=== PATIENT | male | born 1960 | race African-American/Black ===

== ENCOUNTER 2018-05-13 10:10 | Emergency (ER) | payer SELFPAY ==
[2018-05-13 11:41] LABS: #Basophils 0.1 thou/uL (0.0-0.2); #Eosinphils 0.1 thou/uL (0.0-0.7); #Lymphocytes 1.8 thou/uL (1.20-3.40); #Monocytes 0.5 thou/uL (0.11-0.59); %Eosinophils 0.9 % (0.0-10.0); %Lymphocytes 27.6 % (21.0-51.0); %Monocytes 8.1 % (0.0-10.0); %Neutrophils 61.4 % (42.0-75.0); Hemoglobin 14.6 g/dL (14.0-18.0); Mean Corpuscular HGB CONC 32.5 g/dL (32.0-36.0); Mean Corpuscular Hemoglobin 29.1 pg (27.0-31.0); Mean Corpuscular Volume 89.4 fL (78.0-98.0); Mean Platelet Volume 8.1 fL (7.4-10.4); Platelet Count 249 thou/uL (130-400); RBC Distribution Width 13.5 % (11.5-14.5); Red Blood Cell (RBC) Count 5.03 mill/uL (4.70-6.10); White Blood Cell (WBC) Count 6.6 thou/uL (4.8-10.8)
[2018-05-13 12:04] LABS: ALT (SGPT) 46 U/L (8-55); AST (SGOT) 27 U/L (5-34); Albumin 4.1 g/dL (3.5-5.0); Alkaline Phosphatase 68 U/L (40-150); Anion Gap 13 mmol/L (10-20); BUN (Urea Nitrogen) 20 mg/dL (8.4-25.7); Bilirubin, Total 0.5 mg/dL (0.2-1.2); Calc. Creatinine Clearance 0 mL/min (70-130); Calcium 9.5 mg/dL (7.8-10.44); Carbon Dioxide 23 mmol/L (22-29); Chloride 107 mmol/L (98-107); Estimated GFR-MDRD 87; Globulin 3.4 g/dL (2.4-3.5); Glucose 111 mg/dL (70-105); Potassium 3.6 mmol/L (3.5-5.1); Protein, Total 7.5 g/dL (6.0-8.3); Sodium 139 mmol/L (136-145)
--- NOTE | 2018-05-13 12:12 | RAD ---
1 VIEW CHEST: Date: 05/13/18 COMPARISON: 04/03/18. HISTORY: Swollen ankle x1 week. FINDINGS: Normal cardiac silhouette. Pulmonary vessels and hilum are normal. Costophrenic angles are clear. No mass. No consolidation. No pneumothorax or osseous abnormalities. IMPRESSION: No acute cardiopulmonary process. POS: [facility]
== END 2018-05-13 12:34 | disposition home or self-care (01) ==
LOC: ERS 10:10
DX: R60.0 Localized edema (principal); E11.9 Type 2 diabetes mellitus without complications; I10 Essential (primary) hypertension; F32.9 Major depressive disorder, single episode, unspecified; Z79.899 Other long term (current) drug therapy
CPT/HCPCS: 36415; 71045; 80053; 83880; 85025; 93005

== ENCOUNTER 2018-07-16 09:40 | Emergency (ER) | payer SELFPAY ==
[2018-07-16 10:28] LABS: #Basophils 0.1 thou/uL (0.0-0.2); #Eosinphils 0.1 thou/uL (0.0-0.7); #Lymphocytes 1.5 thou/uL (1.20-3.40); #Monocytes 0.4 thou/uL (0.11-0.59); %Basophils 1.3 % (0.0-1.0); %Eosinophils 1.6 % (0.0-10.0); %Lymphocytes 24.4 % (21.0-51.0); %Monocytes 7.1 % (0.0-10.0); %Neutrophils 65.5 % (42.0-75.0); Hemoglobin 14.3 g/dL (14.0-18.0); Mean Corpuscular HGB CONC 32.5 g/dL (32.0-36.0); Mean Corpuscular Hemoglobin 28.7 pg (27.0-31.0); Mean Corpuscular Volume 88.3 fL (78.0-98.0); Platelet Count 258 thou/uL (130-400); RBC Distribution Width 13.5 % (11.5-14.5); Red Blood Cell (RBC) Count 4.96 mill/uL (4.70-6.10); White Blood Cell (WBC) Count 6.1 thou/uL (4.8-10.8)
[2018-07-16 10:48] LABS: Anion Gap 8 mmol/L (10-20); BUN (Urea Nitrogen) 15 mg/dL (8.4-25.7); Calc. Creatinine Clearance 0 mL/min (70-130); Calcium 9.4 mg/dL (7.8-10.44); Carbon Dioxide 31 mmol/L (22-29); Chloride 104 mmol/L (98-107); Estimated GFR-MDRD 83; Glucose 207 mg/dL (70-105); Potassium 3.3 mmol/L (3.5-5.1); Sodium 140 mmol/L (136-145)
--- NOTE | 2018-07-16 11:18 | CT ---
CT OF THE SOFT TISSUES OF THE NECK WITH IV CONTRAST: Date: 07/16/18 INDICATION: Throat pain with reported throat closing over the last week with difficulty breathing. FINDINGS: There is prominence of the palatine and lingual tonsils. There is also prominence of the posterior so ft palate and uvula causing some mild narrowing of the upper oropharynx. A small amount of fluid and gas is collected near the base of the tongue. There is a hyperenhancing lobular submucosal mass seen posterior to the arytenoid cartilage, in the m idline near the level of the anterior cricopharyngeus, on image 51 of series 2 and image 46 of the co [place] series. This does not definitely communicate with the adjacent left common carotid artery. No lymphadenopathy is grossly evident. There are some shotty appearing nodes seen within station 1 an d station 2 of the upper neck. The thyroid, submandibular, and parotid glands are normal appearing. There is mild mucosal thickening involving the right maxillary sinus. Visualized intracranial contents appear within normal limits. M astoid air cells are clear. There is cerumen buildup within the left external auditory canal. There i s mild degenerative change of the cervical spine. No acute osseous abnormality is evident. IMPRESSION: 1. Prominence of the soft tissues of the posterior nasopharynx and upper oropharynx, including the p alatine and lingual tonsils, which can be seen with an oral pharyngitis. Infiltrative malignancy is n ot excluded. Recommend direct visualization and ENT follow-up. 2. Hyperenhancing mass seen within the midline posterior submucosal tissues of the hypopharynx just posterior to the arytenoid cartilage measuring 1.1 x 1.5 cm. Differential considerations include a sm all varix, poorly defined arterial aneurysm, or a hyperenhancing soft tissue mass such as paraganglio ma. Recommend ENT consultation. Prior to the ENT consultation, recommend further evaluation with a CT A of the neck to possibly exclude the presence of an aneurysm. 3. Mild paranasal sinus disease. Findings called to Dr. Mcgarry at 1059 hours on 07/16/18. CODE CR. POS: [facility]
[2018-07-16] MEDS ORDERED: ISOVUE-370 76%-LOCM 1 ML ONE (13:58)
== END 2018-07-16 11:11 | disposition home or self-care (01) ==
LOC: ERS 09:40
DX: J02.9 Acute pharyngitis, unspecified (principal); E11.65 Type 2 diabetes mellitus with hyperglycemia; J39.2 Other diseases of pharynx; I10 Essential (primary) hypertension; F32.9 Major depressive disorder, single episode, unspecified
CPT/HCPCS: 70491; 80048; 85025

== ENCOUNTER 2018-09-13 13:30 | Emergency (ER) | payer SELFPAY ==
[2018-09-13 14:01] LABS: #Eosinphils 0.1 thou/uL (0.0-0.7); #Lymphocytes 1.3 thou/uL (1.20-3.40); #Monocytes 0.5 thou/uL (0.11-0.59); #Neutrophils 7.2 thou/uL (1.40-6.50); %Basophils 0.5 % (0.0-1.0); %Lymphocytes 13.9 % (21.0-51.0); %Monocytes 5.5 % (0.0-10.0); %Neutrophils 79.1 % (42.0-75.0); Hemoglobin 14.8 g/dL (14.0-18.0); Mean Corpuscular HGB CONC 33.8 g/dL (32.0-36.0); Mean Corpuscular Hemoglobin 29.3 pg (27.0-31.0); Mean Corpuscular Volume 86.6 fL (78.0-98.0); Mean Platelet Volume 9.8 fL (7.4-10.4); Platelet Count 218 thou/uL (130-400); RBC Distribution Width 13.5 % (11.5-14.5); Red Blood Cell (RBC) Count 5.04 mill/uL (4.70-6.10); White Blood Cell (WBC) Count 9.1 thou/uL (4.8-10.8)
[2018-09-13 14:22] LABS: ALT (SGPT) 33 U/L (8-55); AST (SGOT) 26 U/L (5-34); Albumin 4.1 g/dL (3.5-5.0); Alkaline Phosphatase 99 U/L (40-150); Anion Gap 17 mmol/L (10-20); BUN (Urea Nitrogen) 14 mg/dL (8.4-25.7); Bilirubin, Total 0.6 mg/dL (0.2-1.2); Calc. Creatinine Clearance 0 mL/min (70-130); Calcium 9.1 mg/dL (7.8-10.44); Carbon Dioxide 21 mmol/L (22-29); Chloride 97 mmol/L (98-107); Estimated GFR-MDRD 62; Globulin 3.4 g/dL (2.4-3.5); Potassium 3.6 mmol/L (3.5-5.1); Protein, Total 7.5 g/dL (6.0-8.3); Sodium 131 mmol/L (136-145)
[2018-09-13 14:29] LABS: Glucose 577 mg/dL (70-105)
[2018-09-13] MEDS ORDERED: Insulin Regular 300 UNITS/3 ML VIAL ONE (16:36)
== END 2018-09-13 18:10 | disposition home or self-care (01) ==
LOC: ERS 13:30
DX: E11.65 Type 2 diabetes mellitus with hyperglycemia (principal); I10 Essential (primary) hypertension; F32.9 Major depressive disorder, single episode, unspecified; Z79.84 Long term (current) use of oral hypoglycemic drugs
CPT/HCPCS: 36416; 80053; 85025; 94760; 96360; 96361; J1815

== ENCOUNTER 2018-09-15 16:40 | Emergency (ER) | payer SELFPAY ==
--- NOTE | 2018-09-15 17:12 | RAD ---
RADIOGRAPH CHEST 1 VIEW: HISTORY: 58-year-old male with chest pain. FINDINGS: There are no air space densities, pulmonary edema, pneumothorax, or cardiomegaly. The lateral costop hrenic angles are sharp. IMPRESSION: No acute cardiopulmonary findings. yoni [] POS: [facility]
[2018-09-15 17:22] LABS: #Basophils 0.1 thou/uL (0.0-0.2); #Eosinphils 0.1 thou/uL (0.0-0.7); #Monocytes 0.4 thou/uL (0.11-0.59); #Neutrophils 3.4 thou/uL (1.40-6.50); %Basophils 1.3 % (0.0-1.0); %Eosinophils 1.6 % (0.0-10.0); %Lymphocytes 33.4 % (21.0-51.0); %Monocytes 7.2 % (0.0-10.0); %Neutrophils 56.5 % (42.0-75.0); Hemoglobin 14.9 g/dL (14.0-18.0); Mean Corpuscular HGB CONC 33.3 g/dL (32.0-36.0); Mean Corpuscular Hemoglobin 28.4 pg (27.0-31.0); Mean Corpuscular Volume 85.3 fL (78.0-98.0); Mean Platelet Volume 9.9 fL (7.4-10.4); Platelet Count 230 thou/uL (130-400); RBC Distribution Width 13.6 % (11.5-14.5); Red Blood Cell (RBC) Count 5.26 mill/uL (4.70-6.10); White Blood Cell (WBC) Count 5.9 thou/uL (4.8-10.8)
[2018-09-15] MEDS ORDERED: Aspirin 325 MG TAB ONE (17:40)
[2018-09-15 17:53] LABS: ALT (SGPT) 39 U/L (8-55); AST (SGOT) 31 U/L (5-34); Albumin 4.3 g/dL (3.5-5.0); Alkaline Phosphatase 83 U/L (40-150); Anion Gap 15 mmol/L (10-20); BUN (Urea Nitrogen) 10 mg/dL (8.4-25.7); Bilirubin, Total 0.6 mg/dL (0.2-1.2); CK (CPK) 317 U/L (30-200); Calc. Creatinine Clearance 0 mL/min (70-130); Calcium 9.6 mg/dL (7.8-10.44); Carbon Dioxide 24 mmol/L (22-29); Chloride 100 mmol/L (98-107); Estimated GFR-MDRD 81; Globulin 3.6 g/dL (2.4-3.5); Glucose 195 mg/dL (70-105); Lipase 42 U/L (8-78); Potassium 3.1 mmol/L (3.5-5.1); Protein, Total 7.9 g/dL (6.0-8.3); Sodium 136 mmol/L (136-145)
--- NOTE | 2018-09-19 11:14 | EKG ---
Test Reason : Blood Pressure : / mmHG Vent. Rate : 073 BPM Atrial Rate : 073 BPM P-R Int : 176 ms QRS Dur : 154 ms QT Int : 442 ms P-R-T Axes : 050 009 020 degrees QTc Int : 486 ms Normal sinus rhythm Left bundle branch block Abnormal ECG Confirmed by MANUELA WILSON ([id number]), editor trade journal [employer] [place] ([id number]) on 09/19/2018 11:14:19 AM Referred By: Confirmed By:MANUELA WILSON
== END 2018-09-15 18:25 | disposition home or self-care (01) ==
LOC: ERS 16:40
DX: R07.89 Other chest pain (principal); E11.9 Type 2 diabetes mellitus without complications; I10 Essential (primary) hypertension; F32.9 Major depressive disorder, single episode, unspecified; Z79.84 Long term (current) use of oral hypoglycemic drugs
CPT/HCPCS: 71045; 80053; 82550; 83690; 84484; 85025; 93005

== ENCOUNTER 2019-10-11 09:52 | Emergency (ER) | payer SELFPAY ==
[2019-10-11] MEDS ORDERED: Ketorolac Tromethamine 60 MG/2 ML VIAL ONE (10:39)
[2019-10-11 10:52] LABS: Bilirubin Negative (Negative); Blood, Urine Negative (Negative); Clarity Clear (Clear); Glucose, Urine (Dipstick) Normal (Negative); Leukocyte Negative Leu/uL (Negative); Nitrite Negative (Negative); Protein, Urine (Dipstick) 10 mg/dL (Neg-Trace); Urobilinogen Normal mg/dL (Less than 2)
== END 2019-10-11 11:10 | disposition home or self-care (01) ==
LOC: ERS 09:52
DX: M54.5 Low back pain (principal); E11.9 Type 2 diabetes mellitus without complications; I10 Essential (primary) hypertension; F32.9 Major depressive disorder, single episode, unspecified; Z79.84 Long term (current) use of oral hypoglycemic drugs
CPT/HCPCS: 81003; 96372; 99283; J1885

== ENCOUNTER 2020-01-17 11:06 | Emergency (ER) | payer SELFPAY ==
--- NOTE | 2020-01-17 12:50 | RAD ---
PORTABLE CHEST: Date: 01/17/2020 HISTORY: Shortness of breath, chest pain. COMPARISON: 09/15/2018. FINDINGS: Heart size upper normal and stable. Lung shi appear well aerated and clear. No infiltrate or vascu lar congestion. No evidence of effusion. IMPRESSION: No acute lung process. POS: [facility]
[2020-01-17 14:11] LABS: ALT (SGPT) 17 U/L (8-55); AST (SGOT) 14 U/L (5-34); Albumin 4.2 g/dL (3.5-5.0); Alkaline Phosphatase 77 U/L (40-110); Anion Gap 14 mmol/L (10-20); BUN (Urea Nitrogen) 13 mg/dL (8.4-25.7); Bilirubin, Total 0.4 mg/dL (0.2-1.2); Calc. Creatinine Clearance 0 mL/min (70-130); Calcium 9.2 mg/dL (7.8-10.44); Carbon Dioxide 24 mmol/L (22-29); Chloride 103 mmol/L (98-107); Estimated GFR-MDRD 81; Globulin 3.4 g/dL (2.4-3.5); Glucose 102 mg/dL (70-105); Potassium 3.2 mmol/L (3.5-5.1); Protein, Total 7.6 g/dL (6.0-8.3); Sodium 138 mmol/L (136-145)
[2020-01-17 14:33] LABS: #Basophils 0.1 thou/uL (0.0-0.2); #Eosinphils 0.1 thou/uL (0.0-0.7); #Lymphocytes 1.6 thou/uL (1.20-3.40); #Monocytes 0.7 thou/uL (0.11-0.59); #Neutrophils 3.3 thou/uL (1.40-6.50); %Basophils 1.9 % (0.0-1.0); %Eosinophils 1.9 % (0.0-10.0); %Lymphocytes 27.7 % (21.0-51.0); %Monocytes 11.5 % (0.0-10.0); %Neutrophils 57.1 % (42.0-75.0); Hemoglobin 14.2 g/dL (14.0-18.0); Mean Platelet Volume 9.1 fL (7.4-10.4); Platelet Count 280 thou/uL (130-400); RBC Distribution Width 14.2 % (11.5-14.5); Red Blood Cell (RBC) Count 5.27 mill/uL (4.70-6.10); White Blood Cell (WBC) Count 5.7 thou/uL (4.8-10.8)
--- NOTE | 2020-01-19 16:15 | EKG ---
Test Reason : EMERGENCY EXAM Blood Pressure : / mmHG Vent. Rate : 080 BPM Atrial Rate : 080 BPM P-R Int : 160 ms QRS Dur : 146 ms QT Int : 416 ms P-R-T Axes : 045 020 046 degrees QTc Int : 479 ms Normal sinus rhythm Left bundle branch block Abnormal ECG Confirmed by CLEM CSATRO, DESTINY ([id number]), brands editor REINALDO REN ([id number]) on 01/19/2020 4:15:04 PM Referred By: Confirmed By:DESTINY NJ MD
== END 2020-01-17 14:49 | disposition home or self-care (01) ==
LOC: ERS 11:06
DX: R60.0 Localized edema (principal); E11.9 Type 2 diabetes mellitus without complications; I10 Essential (primary) hypertension; F32.9 Major depressive disorder, single episode, unspecified
CPT/HCPCS: 36415; 71045; 80053; 83880; 84484; 85025; 93005; 94760

== ENCOUNTER 2020-03-08 16:33 | Emergency (ER) | payer SELFPAY ==
--- NOTE | 2020-03-08 17:15 | RAD ---
PORTABLE CHEST ONE VIEW: 03/08/20 at 5:00 p.m. HISTORY: Chest pain. COMPARISON: 01/07/20. The heart size is normal. The lungs are expanded without focal areas of consolidation, pneumothoraces , or pleural effusions. IMPRESSION: No radiographic evidence of acute cardiopulmonary process. POS: [facility]
[2020-03-08 17:24] LABS: #Basophils 0.1 thou/uL (0.0-0.2); #Eosinphils 0.1 thou/uL (0.0-0.7); #Lymphocytes 1.7 thou/uL (1.20-3.40); #Monocytes 0.4 thou/uL (0.11-0.59); #Neutrophils 3.4 thou/uL (1.40-6.50); %Basophils 1.7 % (0.0-1.0); %Eosinophils 1.1 % (0.0-10.0); %Lymphocytes 29.3 % (21.0-51.0); %Monocytes 7.6 % (0.0-10.0); %Neutrophils 60.3 % (42.0-75.0); Hemoglobin 14.1 g/dL (14.0-18.0); Mean Corpuscular HGB CONC 31.3 g/dL (32.0-36.0); Mean Corpuscular Hemoglobin 26.7 pg (27.0-31.0); Mean Corpuscular Volume 85.3 fL (78.0-98.0); Mean Platelet Volume 8.4 fL (7.4-10.4); Platelet Count 298 thou/uL (130-400); RBC Distribution Width 14.4 % (11.5-14.5); White Blood Cell (WBC) Count 5.7 thou/uL (4.8-10.8)
[2020-03-08 17:55] LABS: ALT (SGPT) 14 U/L (8-55); AST (SGOT) 13 U/L (5-34); Albumin 4.2 g/dL (3.5-5.0); Alkaline Phosphatase 75 U/L (40-110); Anion Gap 11 mmol/L (10-20); BUN (Urea Nitrogen) 11 mg/dL (8.4-25.7); Bilirubin, Total 0.5 mg/dL (0.2-1.2); Calc. Creatinine Clearance 0 mL/min (70-130); Calcium 9.7 mg/dL (7.8-10.44); Carbon Dioxide 25 mmol/L (22-29); Chloride 104 mmol/L (98-107); Estimated GFR-MDRD 86; Globulin 3.5 g/dL (2.4-3.5); Glucose 73 mg/dL (70-105); Lipase 31 U/L (8-78); Potassium 3.3 mmol/L (3.5-5.1); Protein, Total 7.7 g/dL (6.0-8.3); Sodium 137 mmol/L (136-145)
== END 2020-03-08 21:35 | disposition home or self-care (01) ==
LOC: ERS 16:33
DX: R07.89 Other chest pain (principal); E11.9 Type 2 diabetes mellitus without complications; I10 Essential (primary) hypertension; F32.9 Major depressive disorder, single episode, unspecified
CPT/HCPCS: 36415; 71045; 80053; 83690; 84484; 85025; 93005; 94760

== ENCOUNTER 2020-06-06 07:47 | Inpatient (IN) | payer OTHER, SELFPAY ==
[2020-06-06] MEDS ORDERED: Vancomycin 1 GM/200 ML BAG ONE (08:16)
[2020-06-06] MEDS ORDERED: Cefepime 1 GM VIAL ONE (08:16)
[2020-06-06] MEDS ORDERED: Cefepime 2 GM VIAL ONE (08:20)
[2020-06-06] MEDS ORDERED: Ibuprofen 800 MG TAB ONE (08:25)
[2020-06-06] MEDS ORDERED: Acetaminophen 500 MG TAB ONE (08:25)
[2020-06-06 08:31] LABS: #Basophils 0.1 thou/uL (0.0-0.2); #Eosinphils 0.1 thou/uL (0.0-0.7); #Lymphocytes 0.5 thou/uL (1.20-3.40); #Monocytes 0.5 thou/uL (0.11-0.59); #Neutrophils 12.6 thou/uL (1.40-6.50); %Basophils 0.9 % (0.0-1.0); %Eosinophils 0.4 % (0.0-10.0); %Lymphocytes 3.9 % (21.0-51.0); %Monocytes 3.7 % (0.0-10.0); %Neutrophils 91.2 % (42.0-75.0); Hemoglobin 13.2 g/dL (14.0-18.0); Mean Corpuscular HGB CONC 33.2 g/dL (32.0-36.0); Mean Corpuscular Hemoglobin 28.9 pg (27.0-31.0); Mean Corpuscular Volume 86.9 fL (78.0-98.0); Mean Platelet Volume 8.4 fL (7.4-10.4); Platelet Count 249 thou/uL (130-400); RBC Distribution Width 14.3 % (11.5-14.5); Red Blood Cell (RBC) Count 4.57 mill/uL (4.70-6.10); White Blood Cell (WBC) Count 13.8 thou/uL (4.8-10.8)
--- NOTE | 2020-06-06 08:41 | RAD ---
EXAM: CHEST ONE VIEW HISTORY: Cough. COMPARISON: 03/08/2020 FINDINGS: Cardiac silhouette is magnified by projection. Pulmonary vasculature is within normal limits. Linear densities are again seen at the left lung base and more also seen on prior study likely related to mild scarring. Lungs are otherwise clear. No other interval change. IMPRESSION: No acute cardiopulmonary process.
[2020-06-06 08:55] LABS: ALT (SGPT) 16 U/L (8-55); AST (SGOT) 14 U/L (5-34); Albumin 3.7 g/dL (3.5-5.0); Alkaline Phosphatase 74 U/L (40-110); Anion Gap 16 mmol/L (10-20); BUN (Urea Nitrogen) 14 mg/dL (8.4-25.7); Bilirubin, Total 0.6 mg/dL (0.2-1.2); Calc. Creatinine Clearance 0 mL/min (70-130); Calcium 8.8 mg/dL (7.8-10.44); Carbon Dioxide 20 mmol/L (22-29); Chloride 104 mmol/L (98-107); Estimated GFR-MDRD 80; Globulin 3.1 g/dL (2.4-3.5); Glucose 163 mg/dL (70-105); Lipase 23 U/L (8-78); Potassium 3.1 mmol/L (3.5-5.1); Protein, Total 6.8 g/dL (6.0-8.3); Sodium 137 mmol/L (136-145)
[2020-06-06 09:58] LABS: Bilirubin Negative (Negative); Blood, Urine Negative (Negative); Clarity Clear (Clear); Glucose, Urine (Dipstick) Normal (Negative); Ketone, Urine Negative (Negative); Leukocyte Negative Leu/uL (Negative); Nitrite Negative (Negative); Protein, Urine (Dipstick) Negative (Neg-Trace); Specific Gravity, Urine 1.018 (1.002-1.036); Urobilinogen Normal mg/dL (Less than 2)
--- NOTE | 2020-06-06 10:08 | CT ---
CT PULMONARY ANGIOGRAM WITH IV CONTRAST AND 3-D POSTPROCESSING: HISTORY:Fever, chills, cough and tachycardia FINDINGS: There is inadequate contrast opacification of the pulmonary arterial vasculature making this an nondi agnostic exam for evaluation of pulmonary embolism. The thoracic aorta is well opacified without aneurysm or dissection. No pleural or pericardial effusions are seen. No pneumothoraces, focal areas of consolidation or noncalcified lung nodules are noted. There is a ca lcified granuloma in the left lung base. There are dependent changes in the posterior lung bases, right greater than left. There are degenerative changes in the spine. IMPRESSION: 1. Exam is nondiagnostic for evaluation of pulmonary embolism. 2. No evidence of thoracic aortic aneurysm or dissection.
--- NOTE | 2020-06-06 10:52 | PDOC.HHP ---
Hospitalist HPI - History of Present Illness Shaking History of Present Illness: PCP: [facility] The patient is a 59-year-old male with a past medical history significant for diabetes type 2 (on insulin), hypertension and depression that presents to the ER for the above complaint. The patient reports going to sleep in his usual health last night, then when he awoke he was shaking. He says that he was "shaking all over". He says that he could not stop shaking. He reports associated chills and nausea with a slight nonproductive cough. He was unable to check his temperature. Denies LOC, biting of tongue or loss of bowel/bladder control. He denies any chest pain, heart palpitations, lightheadedness. Denies any wheezing or dyspnea on exertion. Denies any abdominal pain, nausea, vomiting, diarrhea. Denies any urinary symptoms. He denies any loss of smell or known COVID contacts. He has no other complaints at this time. ED Course: VITAL SIGNS FriJun 06, 2020 07:47 MEDHAT Ma Dannette BP: 148/78, Pulse: 122, Resp: 20, Temp: 102.6 (Oral), Pain: 5, O2 sat: 96 on (Room Air), Time: 06/06/2020 07:47. VITAL SIGNS FriJun 06, 2020 08:30 MEDHAT Kathleen Cullen BP: 127/72, Pulse: 113, Resp: 22, Pain: 5, O2 sat: 95 on (Room Air), Time: 06/06/2020 08:30. VITAL SIGNS FriJun 06, 2020 09:14 MEDHAT Roach Jessica BP: 127/69, MAP: 88, Pulse: 102, Resp: 22 (Non-Labored), Temp: 100.9 (Oral), Pain: 5, O2 sat: 95 on (Room Air), Time: 06/06/2020 09:14. Medication administration: *sodium chloride 0.9 % intravenous 30 mL/kg IV Fluid Infusion Given 09:21 06/06/2020 vancomycin in dextrose 5 % one g IV Piggy Back Given 09:13 06/06/2020 ibuprofen 800 mg Oral Given 08:29 06/06/2020 acetaminophen oral 1 g Oral Given 08:29 06/06/2020 cefepime injection 2 g IV Piggy Back Given 08:28 06/06/2020 sodium chloride 0.9 % intravenous 1 L IV Fluid Infusion Given 08:20 06/06/2020 Hospitalist ROS - Review of Systems All other systems reviewed; all pertinent +/- noted in HPI/Subj - Medication Medications: metFORMIN FriJun 06, 2020 08:13 MEDHAT Kathleen Cullen tablet : Strength - 500 mg : ORAL Patient Dose: 1 tablet p.o. twice daily. lisinopril FriJun 06, 2020 08:13 MEDHAT Kathleen Cullen tablet : Strength - 2.5 mg : ORAL Patient Dose: Unknown. Amlodipine unknown dose. Benadryl 25 mg p.o. nightly Insulin 70:30 35 units every morning. Allergies: NKDA Hospitalist History - Past Medical History Source: patient, RN notes reviewed Cardiac: reports: HTN Psych: reports: Depression Endocrine: reports: Diabetes (Type II) - Past Surgical History Past Surgical History: reports: Cataract Removal (Left eye) - Family History Family History: reports: no pertinent history Other Family History: Noncontributory to this case - Social History Smoking Status: Former smoker Tobacco Type: cigars (Quit greater than 10 years ago) Drugs: reports: marijuana (Quit greater than 10 years ago) Living Situation: Alone Occupation: Unemployed Activity level: independent ambulation - Exam General Appearance: NAD, awake alert. negative: ill appearing Eye: anicteric sclera ENT: normocephalic atraumatic Neck: supple, symmetric, no JVD Heart: RRR, no murmur, no gallops, no rubs, normal peripheral pulses Respiratory: CTAB, no wheezes, no rales, no ronchi, normal chest expansion, no tachypnea Gastrointestinal: soft, non-tender, normal bowel sounds, no bruit, no guarding, no rigidity Extremities: no cyanosis, no edema Skin: no rashes Neurological: no focal deficits Musculoskeletal: normal tone, normal strength Psychiatric: normal affect, A&O x 3 Hospitalist Results - Labs Result Diagrams: 06/06/20 08:18 06/06/20 08:18 Lab results: WBC 13.8 thou/uL (4.8-10.8) H 06/06/20 08:18 Hgb 13.2 g/dL (14.0-18.0) L 06/06/20 08:18 Hct 39.8 % (42.0-52.0) L 06/06/20 08:18 MCV 86.9 fL (78.0-98.0) 06/06/20 08:18 Plt Count 249 thou/uL (130-400) 06/06/20 08:18 Neutrophils % 91.2 % (42.0-75.0) H 06/06/20 08:18 Sodium 137 mmol/L (136-145) 06/06/20 08:18 Potassium 3.1 mmol/L (3.5-5.1) L 06/06/20 08:18 Chloride 104 mmol/L (98-107) 06/06/20 08:18 Carbon Dioxide 20 mmol/L (22-29) L 06/06/20 08:18 BUN 14 mg/dL (8.4-25.7) 06/06/20 08:18 Creatinine 1.14 mg/dL (0.7-1.3) 06/06/20 08:18 Glucose 163 mg/dL (70-105) H 06/06/20 08:18 Lactic Acid 3.1 mmol/L (0.5-2.2) H 06/06/20 08:18 Calcium 8.8 mg/dL (7.8-10.44) 06/06/20 08:18 Total Bilirubin 0.6 mg/dL (0.2-1.2) 06/06/20 08:18 AST 14 U/L (5-34) 06/06/20 08:18 ALT 16 U/L (8-55) 06/06/20 08:18 Alkaline Phosphatase 74 U/L (40-110) 06/06/20 08:18 Troponin I Less than 0.010 ng/mL (< 0.028) 06/06/20 08:18 Serum Total Protein 6.8 g/dL (6.0-8.3) 06/06/20 08:18 Albumin 3.7 g/dL (3.5-5.0) 06/06/20 08:18 Lipase 23 U/L (8-78) 06/06/20 08:18 Urine Ketones Negative mg/dL (Negative) 06/06/20 09:47 Urine Blood Negative (Negative) 06/06/20 09:47 Urine Nitrite Negative (Negative) 06/06/20 09:47 Ur Leukocyte Esterase Negative Jayro/uL (Negative) 06/06/20 09:47 - EKG Interpretation EKG: Sinus tach left bundle branch block pulse 111 IN 152 no STEMI. - Radiology Interpretation Chest x-ray Status: report reviewed by me Additional Comment: IMPRESSION: No acute cardiopulmonary process CT scan - chest Status: report reviewed by me Additional Comment: 1. Exam is nondiagnostic for evaluation of pulmonary embolism. 2. No evidence of thoracic aortic aneurysm or dissection Hospitalist H&P A/P - Problem (1) Sepsis Code(s): A41.9 - SEPSIS, UNSPECIFIED ORGANISM Status: Acute (2) Hypokalemia Code(s): E87.6 - HYPOKALEMIA Status: Acute (3) DM type 2 (diabetes mellitus, type 2) Status: Chronic (4) Hypertension Code(s): I10 - ESSENTIAL (PRIMARY) HYPERTENSION Status: Chronic (5) Depression Code(s): F32.9 - MAJOR DEPRESSIVE DISORDER, SINGLE EPISODE, UNSPECIFIED Status: Chronic - Plan Plan: 59/M with PMH HTN, DM 2 presents for shaking and chills. Admit to medical floor, inpatient status. Expected length of stay greater than 2 midnights. Presented tachycardic and febrile, NL BP, RR, SPO2. EKG sinus rhythm with LBBB, no ST elevation, troponin negative. CXR no acute process. DD 0.64, CTA chest nondiagnostic PE, no evidence aortic aneurysm or dissection. WBC 13.8, LA 3.1 Strep and flu negative. UA unremarkable. #Sepsis Unknown source. Continue empiric antibiotics, vancomycin and cefepime IVPB Received 30 mls/kg in ED. Maintenance IVF at 130 mL/HR. Blood/urine CX pending. COVID pending Check procalcitonin, TSH Repeat LA pending. #Hypokalemia Mild. K 3.1 We will give 40 mEq IVPB. Check magnesium level. Recheck level in a.m. #DM2 Presented BG 123. Takes metformin daily. Takes 70:30 -35 units every morning. Hold home anti-hyperglycemics. Start mild ISS. AC/HS checks #Hypertension Presented normotensive. Takes unknown dose of lisinopril and amlodipine at home. Nursing to reconcile home medication dosing. Restart home medications when appropriate. #Depression Denies SI/HI. Takes unknown home medication that he gets from [facility]. Nursing to reconcile home medication. We will restart home medication once reconciled by nursing. Lovenox for DVT prophylaxis. Pepcid for GI prophylaxis. Full code. Discussed case with Dr. Casiano.
[2020-06-06] MEDS ORDERED: Ondansetron ODT 4 MG TAB PO PRN (11:13)
[2020-06-06] MEDS ORDERED: Guaifenesin DM 100-10/5 ML UDCUP PO PRN (11:13)
[2020-06-06] MEDS ORDERED: Acetaminophen 325 MG TAB PO PRN (11:13)
[2020-06-06] MEDS ORDERED: Calcium Carbonate 500 MG ChewTAB PO PRN (11:13)
[2020-06-06] MEDS ORDERED: Senokot S 8.6-50 MG TAB PO PRN (11:13)
[2020-06-06] MEDS ORDERED: Ondansetron PF 4 MG/2 ML Vial IVP PRN (11:13)
[2020-06-06] MEDS ORDERED: HumaLOG 300 UNITS/3 ML VIAL SC PRN (11:18)
[2020-06-06] MEDS ORDERED: Dextrose 5% in Water 1,000 ML IV PRN (11:18)
[2020-06-06] MEDS ORDERED: Dextrose 50% Abboject 50 ML SYRINGE SLOW IVP PRN (11:18)
[2020-06-06 11:47] LABS: Lactic Acid 2.6 mmol/L (0.5-2.2)
[2020-06-06] MEDS ORDERED: Magnesium 2 GM/50 ML 2 GM in Premix Bag 1 BAG IVPB SCH (12:45)
[2020-06-06] MEDS ORDERED: Potassium Chloride 40 MEQ in Sodium Chloride 0.9% 250 ML 250 ML IVPB SCH (13:00)
[2020-06-06 13:31] VITALS: BMI 33.5
[2020-06-06] MEDS ORDERED: Iopamidol-370 76% 500 ML 1 ML ONE (13:31)
[2020-06-06] MEDS: Sodium Chloride 0.9% 1,000 ML IV SCH ×2 (13:52→18:20)
[2020-06-06] MEDS ORDERED: FLU VACC QS2020-21(6MOS UP)/PF 60 MCG/0.5 ML SYRINGE IM ONE (15:15)
[2020-06-06 17:57] LABS: SARS-CoV-2 MS2 Positive; SARS-CoV-2 N Gene Negative; SARS-CoV-2 S Gene Negative; SARS-CoV-2 by NAA Not Detected (NotDetected); SARS-CoV-2 orf1ab Negative
[2020-06-06] MEDS: Famotidine 20 MG TAB PO SCH (20:16)
[2020-06-06] MEDS: Cefepime 2 GM in Sodium Chloride 0.9% 100 ML IVPB SCH (20:16)
[2020-06-06] MEDS: diphenhydrAMINE 25 MG CAP PO SCH (20:16)
[2020-06-06] MEDS: Vancomycin HCl 1.25 GM in Sodium Chloride 0.9% 250 ML 250 ML IVPB SCH (21:30)
[2020-06-07] MEDS: Sodium Chloride 0.9% 1,000 ML IV SCH ×3 (03:00→17:30)
[2020-06-07] MEDS ORDERED: Ibuprofen 200 MG TAB PO SCH (05:15)
[2020-06-07 05:33] LABS: #Eosinphils 0.2 thou/uL (0.0-0.7); #Monocytes 0.6 thou/uL (0.11-0.59); #Neutrophils 6.9 thou/uL (1.40-6.50); %Basophils 0.3 % (0.0-1.0); %Eosinophils 2.4 % (0.0-10.0); %Lymphocytes 11.5 % (21.0-51.0); %Monocytes 6.7 % (0.0-10.0); %Neutrophils 79.1 % (42.0-75.0); Hemoglobin 12.2 g/dL (14.0-18.0); Mean Corpuscular HGB CONC 32.9 g/dL (32.0-36.0); Mean Corpuscular Hemoglobin 28.6 pg (27.0-31.0); Mean Corpuscular Volume 86.9 fL (78.0-98.0); Mean Platelet Volume 8.6 fL (7.4-10.4); Platelet Count 205 thou/uL (130-400); RBC Distribution Width 14.2 % (11.5-14.5); Red Blood Cell (RBC) Count 4.26 mill/uL (4.70-6.10); White Blood Cell (WBC) Count 8.8 thou/uL (4.8-10.8)
[2020-06-07 05:49] LABS: Lactic Acid 0.8 mmol/L (0.5-2.2)
[2020-06-07 05:57] LABS: Anion Gap 12 mmol/L (10-20); BUN (Urea Nitrogen) 9 mg/dL (8.4-25.7); Calc. Creatinine Clearance 105 mL/min (70-130); Carbon Dioxide 21 mmol/L (22-29); Chloride 108 mmol/L (98-107); Estimated GFR-MDRD Greater than 90; Glucose 118 mg/dL (70-105); Magnesium 1.7 mg/dL (1.6-2.6); Potassium 3.3 mmol/L (3.5-5.1); Sodium 138 mmol/L (136-145)
[2020-06-07] MEDS: Enoxaparin Sodium 40 MG/0.4 ML SYRINGE SC SCH (08:23)
[2020-06-07] MEDS: Famotidine 20 MG TAB PO SCH ×2 (08:23→21:14)
[2020-06-07] MEDS: Cefepime 2 GM in Sodium Chloride 0.9% 100 ML IVPB SCH ×2 (08:23→21:14)
[2020-06-07] MEDS ORDERED: Vancomycin 1 GM in Premix Bag 1 BAG IVPB SCH (09:00)
[2020-06-07] MEDS: Vancomycin HCl 1.25 GM in Sodium Chloride 0.9% 250 ML 250 ML IVPB SCH ×2 (09:34→23:07)
[2020-06-07] MEDS: HumaLOG 300 UNITS/3 ML VIAL SC PRN ×2 (11:48→16:02)
--- NOTE | 2020-06-07 12:12 | PDOC.HOSPP ---
- Subjective Encounter Date: 06/07/20 Encounter Time: 12:06 Subjective: minimal dry cough, no fever - Objective Vital Signs & Weight: Vital Signs (12 hours) Temp Pulse Resp BP BP Pulse Ox 06/07/20 11:00 98.4 F 84 16 126/78 96 06/07/20 08:00 95 06/07/20 07:54 98.3 F 76 16 129/78 95 06/07/20 05:46 99.2 F 97 18 124/77 92 L 06/07/20 04:55 100.7 F H 97 20 124/77 92 L 06/07/20 00:40 99.6 F 95 18 113/67 90 L Weight Weight 201 lb 15.095 oz I&O: 06/06/20 06/07/20 06/08/20 06:59 06:59 06:59 Intake Total 240 Balance 240 Result Diagrams: 06/07/20 05:21 06/07/20 05:21 Additional Labs: Accuchecks 06/07/20 06/07/20 06/06/20 11:44 04:22 20:25 POC Glucose 192 H 126 H 112 H Hospitalist ROS - Medication Medications: Active Medications Generic Name Dose Route Start Last Admin Trade Name Freq PRN Reason Stop Dose Admin Acetaminophen 650 mg 06/06/20 11:13 06/07/20 03:40 Acetaminophen 325 Mg Tab PO 650 mg Q4H PRN Administration Headache/Fever/Mild Pain (1-3) Diphenhydramine HCl 25 mg 06/06/20 21:00 06/06/20 20:16 Diphenhydramine 25 Mg Cap PO 25 mg HS MATTHIEU Administration Enoxaparin Sodium 40 mg 06/07/20 09:00 06/07/20 08:23 Enoxaparin Sodium 40 Mg/0.4 Ml Syringe SC 40 mg 0900 MATTHIEU Administration Famotidine 20 mg 06/06/20 21:00 06/07/20 08:23 Famotidine 20 Mg Tab PO 20 mg BID MATTHIEU Administration Sodium Chloride 1,000 mls @ 130 mls/hr 06/06/20 11:15 06/07/20 11:47 Normal Saline 0.9% IV 1,000 mls .Q7H42M MATTHIEU Administration Cefepime HCl 2 gm/ Sodium 100 mls @ 200 mls/hr 06/06/20 20:00 06/07/20 08:23 Chloride IVPB 100 mls 0800,2000 MATTHIEU Administration Vancomycin HCl 1.25 gm/ Sodium 250 mls @ 166.667 mls/hr 06/06/20 21:00 06/07/20 09:34 Chloride IVPB 250 mls Q12HR MATTHIEU Administration Insulin Human Lispro 0 units 06/06/20 11:18 06/07/20 11:48 Humalog 300 Units/3 Ml Vial SC 2 unit .MILD SLIDING SCALE PRN Administration Mild Correctional Scale - Exam General Appearance: awake alert ENT: no oropharyngeal lesions, moist mucosa Neck: no JVD Heart: RRR, no murmur Respiratory: CTAB Gastrointestinal: soft, normal bowel sounds Extremities: no edema Hosp A/P (1) Fever Code(s): R50.9 - FEVER, UNSPECIFIED Status: Acute Qualifiers: Encounter type: initial encounter (2) Lactic acidosis Code(s): E87.2 - ACIDOSIS Status: Resolved (3) DM type 2 (diabetes mellitus, type 2) Status: Chronic Qualifiers: Diabetes mellitus residential insulin use: without residential use Diabetes mellitus complication status: without complication Qualified Code(s): E11.9 - Type 2 diabetes mellitus without complications (4) Depression Code(s): F32.9 - MAJOR DEPRESSIVE DISORDER, SINGLE EPISODE, UNSPECIFIED Status: Chronic Qualifiers: Major depression recurrence: unspecified whether recurrent Major depression episode severity: unspecified (5) Hypertension Code(s): I10 - ESSENTIAL (PRIMARY) HYPERTENSION Status: Chronic Qualifiers: Hypertension type: essential hypertension Qualified Code(s): I10 - Essential (primary) hypertension - Plan fever, leukoctosis resolved covid neg-he received with true bennie culturespending cont c urrent care
[2020-06-07 20:42] LABS: Vancomycin, Trough 10.4 ug/mL
[2020-06-07] MEDS: diphenhydrAMINE 25 MG CAP PO SCH (21:14)
[2020-06-07] MEDS: Vancomycin 1.5 GRAM/300 ML BAG 1.5 GM in Premix Bag 1 BAG IVPB SCH (23:00)
[2020-06-08] MEDS: Sodium Chloride 0.9% 1,000 ML IV SCH ×2 (03:00→09:11)
[2020-06-08 06:47] LABS: #Eosinphils 0.3 thou/uL (0.0-0.7); #Lymphocytes 1.2 thou/uL (1.20-3.40); #Monocytes 0.8 thou/uL (0.11-0.59); #Neutrophils 4.7 thou/uL (1.40-6.50); %Basophils 0.7 % (0.0-1.0); %Eosinophils 4.5 % (0.0-10.0); %Lymphocytes 16.6 % (21.0-51.0); %Monocytes 11.4 % (0.0-10.0); %Neutrophils 66.7 % (42.0-75.0); Hemoglobin 12.6 g/dL (14.0-18.0); Mean Corpuscular HGB CONC 31.4 g/dL (32.0-36.0); Mean Corpuscular Volume 89.3 fL (78.0-98.0); Mean Platelet Volume 8.7 fL (7.4-10.4); Platelet Count 227 thou/uL (130-400); RBC Distribution Width 14.3 % (11.5-14.5); Red Blood Cell (RBC) Count 4.49 mill/uL (4.70-6.10); White Blood Cell (WBC) Count 7.1 thou/uL (4.8-10.8)
[2020-06-08 07:12] LABS: Anion Gap 15 mmol/L (10-20); BUN (Urea Nitrogen) 10 mg/dL (8.4-25.7); Calc. Creatinine Clearance 99 mL/min (70-130); Calcium 8.1 mg/dL (7.8-10.44); Carbon Dioxide 19 mmol/L (22-29); Chloride 108 mmol/L (98-107); Estimated GFR-MDRD 88; Glucose 117 mg/dL (70-105); Potassium 3.4 mmol/L (3.5-5.1); Sodium 139 mmol/L (136-145)
[2020-06-08] MEDS: Cefepime 2 GM in Sodium Chloride 0.9% 100 ML IVPB SCH (07:47)
[2020-06-08] MEDS: Enoxaparin Sodium 40 MG/0.4 ML SYRINGE SC SCH (07:47)
[2020-06-08] MEDS: Famotidine 20 MG TAB PO SCH (07:47)
[2020-06-08 08:58] VITALS: BP 117/69; TEMP 98.4
[2020-06-08] MEDS: Vancomycin 1.5 GRAM/300 ML BAG 1.5 GM in Premix Bag 1 BAG IVPB SCH (09:10)
--- NOTE | 2020-06-09 07:42 | DIS ---
DATE OF ADMISSION: 06/06/2020 DATE OF DISCHARGE: 06/08/2020 PRIMARY CARE PROVIDER: [facility]. FINAL DIAGNOSES: Systemic inflammatory response syndrome with mild lactic acidosis, resolved; diabetes mellitus type 2; hypertension; and depression. DISCHARGE MEDICATIONS: Were his home medicines; Risperdal 2 mg at bedtime, metformin 500 mg twice a day, amlodipine 10 mg a day, Celexa 20 mg a day, and lisinopril 10 mg a day. ALLERGIES: NO KNOWN DRUG ALLERGIES. DIET: Diabetic. CODE STATUS: Full. PENDING AT TIME OF DISCHARGE: His blood cultures are no growth to date. HOSPITAL COURSE: The patient was seen in the emergency room with fever, some chills and sweats, history of diabetes, hypertension, and depression. He was seen and evaluated in emergency room, referred to the Hospitalist Service. Chest x-ray showed no acute problem. CT showed no acute injury. He has sinus tachycardia with a left bundle-branch block. White count was modestly elevated at 13.8, hemoglobin 13.2, and platelet count was normal. He had an absolute neutrophilia. Sodium 137, potassium 3.1, chloride 104, CO2 of 20, BUN 14, and creatinine 1.14. Liver function tests normal. He was started on broad-spectrum antibiotics. COVID test was negative. When I first saw him on 06/07/20, he had perhaps a minimal dry cough. No shortness of breath. Chest clear. No nausea, vomiting, or diarrhea. His white count had come down to normal at 8.8. Chemistries were unremarkable. Today, cultures are still negative. White count is normal. Physical examination is unremarkable. He has no signs and symptoms of infection. FOLLOWUP: He is being discharged to follow up with [facility] in 3 to 7 days on his home medications. Job ID: [id number]
--- NOTE | 2020-06-10 03:59 | PQF ---
CLINICAL DOCUMENTATION CLARIFICATION FORM: Dear : Tom Ryan Date / Time: 06/10/20358 Please exercise your independent, professional judgment in responding to the clarification form. Clinical indicators are provided on the bottom of this form for your review Please check appropriate box(es): SIRS due to Non-infectious process: [ ] Hypokalemia [ ] LBBB [ ] Other diagnosis [ ] Unable to determine Physician Signature: Date/Time: For continuity of documentation, please document condition throughout progress notes and discharge summary. Thank You. To be completed by CDI/Coding staff for physician review: Present Clinical Indicators - Signs / Symptoms / Labs Results and Location in Medical Record [X] WBC 13.8, neutrophils 91.2, Potassium 3.1;3.3;3.4 Laboratory 06/06 [X] BP 113/70, Pulse 96, Resp 96, Temp 98.0 Vital signs 06/06 [X] EKG showered sinus rhythm with LBBB, no ST elevation H&p p1 Zachariah NUCLEAR PROCESS ENGINEER-C 06/06 [X] Pt reports going to sleep then he awoke was shaking H&p p1 Zachariah NUCLEAR PROCESS ENGINEER-C 06/06 [X] Presented with tachycardic and febrile H&p p5 Zachariah NUCLE[employer] PROCESS ENGINEER-C 06/06 [X] Mild Hypokalemia H&p p5 Zachariah NUCLEAR PROCESS ENGINEER-C 06/06 [X] SIRS with Lactic acidosis DS p1 06/08 Dr Ryan Present Risk Factors Results and Location in Medical Record [X] HTN H&p p1 Zachariah NUCLEAR PROCESS ENGINEER-C 06/06 [X] DM H&p p1 Zachariah NUCLEAR PROCESS ENGINEER-C 06/06 [X] Former smoker H&p p1 Zachariah NUCLEAR PROCESS ENGINEER-C 06/06 Present Treatments Results and Location in Medical Record [X] Series of blood chemistry Laboratory 06/06 [X] IV Vancomycin 1.25 mg NOV 08 [X] IVF NS 1L NOV 08 [X] Potassium Chloride 40 meq NOV 08 [X] EKG Order Dr Davila CDS/Maintenance Director Signature: Sara Suero Dalemerissaayla Phone #: ext [phone] Date/Time: 06/10/2020 [id number] This is a permanent part of the Medical Record [facility]
== END 2020-06-08 11:13 | disposition home or self-care (01) | DRG 815 ==
LOC: ERS 07:47 → T4-B 10:56
PROVIDERS: ADMIT Internal Medicine; ATTEND Internal Medicine
DX: D72.829 Elevated white blood cell count, unspecified (principal); E87.2 Acidosis; R65.10 Systemic inflammatory response syndrome (SIRS) of non-infectious origin without acute organ dysfunction; Z87.891 Personal history of nicotine dependence; R50.9 Fever, unspecified; Z20.828 Contact with and (suspected) exposure to other viral communicable diseases; E11.9 Type 2 diabetes mellitus without complications; I10 Essential (primary) hypertension; F32.9 Major depressive disorder, single episode, unspecified; I44.7 Left bundle-branch block, unspecified; E87.6 Hypokalemia; Z79.899 Other long term (current) drug therapy; Z79.4 Long term (current) use of insulin; Z98.42 Cataract extraction status, left eye
CPT/HCPCS: 36415; 36416; 71045; 71275; 80048; 80053; 80202; 81003; 83605; 83690; 83735; 84145; 84443; 84484; 85025; 85379; 87040; 87081; 87430; 87635; 87804; 96361; 96365; 96366; 96367; J0692; J1650; J3370; J3475; J3480; J3490; J7050; Q0163; Q9967; U0003

== ENCOUNTER 2020-07-10 18:29 | Emergency (ER) | payer SELFPAY ==
--- NOTE | 2020-07-10 19:32 | RAD ---
CHEST ONE VIEW: History: Chest pain Comparison: 06-06-2020 FINDINGS: Lungs are mildly hypoinflated with enlargement of the cardiac silhouette and crowding of the pulmonar y vasculature. No acute consolidation, pneumothorax or effusion. No acute osseous abnormality. IMPRESSION: No acute intrathoracic abnormality. POS: [facility]
[2020-07-10 19:33] LABS: #Basophils 0.1 thou/uL (0.0-0.2); #Eosinphils 0.2 thou/uL (0.0-0.7); #Lymphocytes 2.4 thou/uL (1.20-3.40); #Monocytes 0.6 thou/uL (0.11-0.59); #Neutrophils 3.3 thou/uL (1.40-6.50); %Basophils 1.9 % (0.0-1.0); %Eosinophils 2.4 % (0.0-10.0); %Lymphocytes 35.9 % (21.0-51.0); %Monocytes 9.4 % (0.0-10.0); %Neutrophils 50.5 % (42.0-75.0); Mean Corpuscular HGB CONC 33.3 g/dL (32.0-36.0); Mean Corpuscular Hemoglobin 28.5 pg (27.0-31.0); Mean Corpuscular Volume 85.7 fL (78.0-98.0); Mean Platelet Volume 8.6 fL (7.4-10.4); Platelet Count 248 thou/uL (130-400); RBC Distribution Width 14.2 % (11.5-14.5); Red Blood Cell (RBC) Count 5.25 mill/uL (4.70-6.10); White Blood Cell (WBC) Count 6.6 thou/uL (4.8-10.8)
[2020-07-10 20:01] LABS: ALT (SGPT) 19 U/L (8-55); AST (SGOT) 17 U/L (5-34); Albumin 4.3 g/dL (3.5-5.0); Alkaline Phosphatase 78 U/L (40-110); Anion Gap 19 mmol/L (10-20); BUN (Urea Nitrogen) 10 mg/dL (8.4-25.7); Bilirubin, Total 0.5 mg/dL (0.2-1.2); CK (CPK) 192 U/L (30-200); Calc. Creatinine Clearance 0 mL/min (70-130); Calcium 9.6 mg/dL (7.8-10.44); Carbon Dioxide 21 mmol/L (22-29); Chloride 104 mmol/L (98-107); Estimated GFR-MDRD Greater than 90; Globulin 3.4 g/dL (2.4-3.5); Glucose 77 mg/dL (70-105); Lipase 26 U/L (8-78); Potassium 3.5 mmol/L (3.5-5.1); Protein, Total 7.7 g/dL (6.0-8.3); Sodium 140 mmol/L (136-145)
== END 2020-07-10 21:45 | disposition home or self-care (01) ==
LOC: ERS 18:29
DX: R07.9 Chest pain, unspecified (principal); E11.9 Type 2 diabetes mellitus without complications; I10 Essential (primary) hypertension; F32.9 Major depressive disorder, single episode, unspecified; Z87.891 Personal history of nicotine dependence
CPT/HCPCS: 36415; 71045; 80053; 82550; 83690; 84484; 85025; 93005

== ENCOUNTER 2020-08-14 10:03 | Emergency (ER) | payer SELFPAY | END 2020-08-14 12:35 | disposition home or self-care (01) | LOC: ERS 10:03 | DX: B37.42 Candidal balanitis (principal); I10 Essential (primary) hypertension; E11.9 Type 2 diabetes mellitus without complications; Z87.891 Personal history of nicotine dependence; Z79.4 Long term (current) use of insulin | CPT/HCPCS: 99283 ==

== ENCOUNTER 2020-08-15 08:04 | Emergency (ER) | payer SELFPAY ==
[2020-08-15] MEDS ORDERED: Famotidine 20 MG TAB ONE (09:28)
[2020-08-15] MEDS ORDERED: Racepinephrine 2.25% 0.5 ML NEB ONE (09:31)
[2020-08-15] MEDS ORDERED: Sodium Chloride For Inhalation 0.9% 3 ML NEB ONE (09:32)
[2020-08-15] MEDS ORDERED: Loratadine 10 MG TAB PO SCH (09:45)
== END 2020-08-15 11:34 | disposition home or self-care (01) ==
LOC: ERS 08:04
DX: R60.0 Localized edema (principal); E11.9 Type 2 diabetes mellitus without complications; I10 Essential (primary) hypertension; Z87.891 Personal history of nicotine dependence; Z79.84 Long term (current) use of oral hypoglycemic drugs
CPT/HCPCS: 94640; 99283

== ENCOUNTER 2020-08-17 12:05 | Emergency (ER) | payer SELFPAY | END 2020-08-17 14:57 | disposition home or self-care (01) | LOC: ERS 12:05 | DX: T49.0X1A Poisoning by local antifungal, anti-infective and anti-inflammatory drugs, accidental (unintentional), initial encounter (principal); E11.9 Type 2 diabetes mellitus without complications; I10 Essential (primary) hypertension; Z87.891 Personal history of nicotine dependence | CPT/HCPCS: 99283 ==

== ENCOUNTER 2020-08-19 18:45 | Emergency (ER) | payer SELFPAY ==
--- NOTE | 2020-08-19 20:03 | RAD ---
CHEST ONE VIEW: History: Dyspnea Comparison: 07-10-2020 FINDINGS: Lungs are clear. No pneumothorax or effusion. Cardiac silhouette and mediastinal contours are within normal limits. Mild bibasilar atelectasis with poor inspiratory effort. IMPRESSION: No acute intrathoracic abnormality. POS: HOME
[2020-08-20 05:34] LABS: SARS-CoV-2 MS2 Positive; SARS-CoV-2 N Gene Negative; SARS-CoV-2 S Gene Negative; SARS-CoV-2 by NAA Not Detected (NotDetected); SARS-CoV-2 orf1ab Negative
== END 2020-08-19 19:40 | disposition home or self-care (01) ==
LOC: ERS 18:45
DX: R06.02 Shortness of breath (principal); Z20.828 Contact with and (suspected) exposure to other viral communicable diseases; E11.9 Type 2 diabetes mellitus without complications; I10 Essential (primary) hypertension; Z87.891 Personal history of nicotine dependence
CPT/HCPCS: 71045; 87635; 93005; U0003

== ENCOUNTER 2021-02-03 09:01 | Emergency (ER) | payer SELFPAY ==
[2021-02-03 10:56] LABS: #Basophils 0.1 thou/uL (0.0-0.2); #Lymphocytes 0.8 thou/uL (1.20-3.40); #Monocytes 0.2 thou/uL (0.11-0.59); #Neutrophils 3.4 thou/uL (1.40-6.50); %Basophils 1.1 % (0.0-1.0); %Lymphocytes 18.2 % (21.0-51.0); %Monocytes 5.2 % (0.0-10.0); %Neutrophils 75.4 % (42.0-75.0); Mean Corpuscular HGB CONC 33.6 g/dL (32.0-36.0); Mean Corpuscular Hemoglobin 29.2 pg (27.0-31.0); Mean Corpuscular Volume 86.9 fL (78.0-98.0); Mean Platelet Volume 8.2 fL (7.4-10.4); Platelet Count 206 thou/uL (130-400); RBC Distribution Width 13.8 % (11.5-14.5); Red Blood Cell (RBC) Count 4.81 mill/uL (4.70-6.10); White Blood Cell (WBC) Count 4.5 thou/uL (4.8-10.8)
[2021-02-03 11:19] LABS: ALT (SGPT) 25 U/L (8-55); AST (SGOT) 26 U/L (5-34); Albumin 3.8 g/dL (3.5-5.0); Alkaline Phosphatase 71 U/L (40-110); Anion Gap 15 mmol/L (10-20); BUN (Urea Nitrogen) 13 mg/dL (8.4-25.7); Bilirubin, Total 0.6 mg/dL (0.2-1.2); Calc. Creatinine Clearance 0 mL/min (70-130); Calcium 8.3 mg/dL (7.8-10.44); Carbon Dioxide 24 mmol/L (22-29); Chloride 98 mmol/L (98-107); Globulin 3.2 g/dL (2.4-3.5); Glucose 143 mg/dL (70-105); Potassium 3.1 mmol/L (3.5-5.1); Sodium 134 mmol/L (136-145)
[2021-02-03 11:55] LABS: SARS-CoV-2 NAA Rapid Test DETECTED (NotDetected)
== END 2021-02-03 12:19 | disposition home or self-care (01) ==
LOC: ERS 09:01
DX: U07.1 COVID-19 (principal); J12.82 Pneumonia due to coronavirus disease 2019; I10 Essential (primary) hypertension; E11.9 Type 2 diabetes mellitus without complications; Z87.891 Personal history of nicotine dependence; Z79.4 Long term (current) use of insulin
CPT/HCPCS: 0240U; 36415; 71045; 80053; 83605; 85025; 87040

== ENCOUNTER 2021-02-08 20:38 | Inpatient (IN) | payer SELFPAY ==
[2021-02-08] MEDS ORDERED: Dexamethasone 10 MG/ML VIAL ONE (20:58)
[2021-02-08] MEDS ORDERED: hydrALAZINE 20 MG/ML VIAL SLOW IVP PRN (21:28)
[2021-02-08] MEDS ORDERED: Morphine 2 MG/ML VIAL SLOW IVP PRN (21:28)
[2021-02-08] MEDS ORDERED: HYDROcodone/Acetaminophen 7.5/325 mg Tablet PO PRN (21:30)
[2021-02-08] MEDS ORDERED: Bisacodyl 5 MG TAB PO PRN (21:30)
[2021-02-08] MEDS ORDERED: Guaifenesin DM 100-10/5 ML UDCUP PO PRN (21:30)
[2021-02-08] MEDS ORDERED: Zolpidem Tartrate 5 MG TAB PO PRN (21:30)
[2021-02-08 21:43] LABS: #Lymphocytes 0.9 thou/uL (1.20-3.40); #Monocytes 0.1 thou/uL (0.11-0.59); #Neutrophils 6.4 thou/uL (1.40-6.50); %Basophils 0.1 % (0.0-1.0); %Eosinophils 0.1 % (0.0-10.0); %Monocytes 1.3 % (0.0-10.0); %Neutrophils 86.5 % (42.0-75.0); Hemoglobin 13.3 g/dL (14.0-18.0); Mean Corpuscular HGB CONC 32.6 g/dL (32.0-36.0); Mean Corpuscular Hemoglobin 28.2 pg (27.0-31.0); Mean Corpuscular Volume 86.7 fL (78.0-98.0); Mean Platelet Volume 8.7 fL (7.4-10.4); Platelet Count 223 thou/uL (130-400); RBC Distribution Width 13.9 % (11.5-14.5); Red Blood Cell (RBC) Count 4.71 mill/uL (4.70-6.10); White Blood Cell (WBC) Count 7.4 thou/uL (4.8-10.8)
[2021-02-08] MEDS ORDERED: Enoxaparin Sodium 60 MG/0.6 ML SYRINGE SC SCH (22:00)
[2021-02-08] MEDS ORDERED: Ivermectin 3 MG TAB PO SCH (22:00)
[2021-02-08] MEDS ORDERED: Dexamethasone 4 MG TAB PO SCH (22:00)
[2021-02-08 22:04] LABS: AST (SGOT) 35 U/L (5-34); Albumin 3.5 g/dL (3.5-5.0); Alkaline Phosphatase 59 U/L (40-110); Anion Gap 13 mmol/L (10-20); BUN (Urea Nitrogen) 22 mg/dL (8.4-25.7); Bilirubin, Total 0.4 mg/dL (0.2-1.2); Calc. Creatinine Clearance 0 mL/min (70-130); Calcium 7.9 mg/dL (7.8-10.44); Carbon Dioxide 23 mmol/L (22-29); Chloride 105 mmol/L (98-107); Globulin 2.7 g/dL (2.4-3.5); Glucose 182 mg/dL (70-105); Protein, Total 6.2 g/dL (6.0-8.3); Sodium 138 mmol/L (136-145)
[2021-02-08 22:49] LABS: ALT (SGPT) 35 U/L (8-55)
[2021-02-09 03:00] VITALS: BMI 35.7
[2021-02-09] MEDS: Cefepime 1 GM in Sodium Chloride 0.9% 100 ML IVPB SCH ×2 (03:01→12:19)
[2021-02-09 04:55] LABS: Troponin I 0.026 ng/mL (< 0.028)
[2021-02-09 04:58] LABS: Albumin 3.1 g/dL (3.5-5.0); Anion Gap 14 mmol/L (10-20); BUN (Urea Nitrogen) 23 mg/dL (8.4-25.7); BUN/Creatinine Ratio 17.42; Calc. Creatinine Clearance 83 mL/min (70-130); Calcium 8.3 mg/dL (7.8-10.44); Carbon Dioxide 19 mmol/L (22-29); Chloride 107 mmol/L (98-107); Glucose 346 mg/dL (70-105); Phosphorus 3.3 mg/dL (2.3-4.7); Potassium 3.8 mmol/L (3.5-5.1); Sodium 136 mmol/L (136-145)
[2021-02-09 05:04] LABS: Band 3 % (5-11); Hemoglobin 12.8 g/dL (14.0-18.0); Hypochromia SLIGHT = 6-15 cells (100X) (0-5/hpf); Lymphocytes 4 % (21-51); MDiff Complete? YES; Mean Corpuscular HGB CONC 30.8 g/dL (32.0-36.0); Mean Corpuscular Hemoglobin 26.9 pg (27.0-31.0); Mean Corpuscular Volume 87.3 fL (78.0-98.0); Mean Platelet Volume 9.6 fL (7.4-10.4); Monocytes 4 % (0-10); Neutrophil 89 % (42-75); Platelet Count 193 thou/uL (130-400); Platelet Morphology Comment Appears Adequate; RBC Distribution Width 13.9 % (11.5-14.5); Red Blood Cell (RBC) Count 4.76 mill/uL (4.70-6.10); White Blood Cell (WBC) Count 7.1 thou/uL (4.8-10.8)
[2021-02-09] MEDS: Dexamethasone 4 MG TAB PO SCH ×2 (07:31→16:14)
[2021-02-09] MEDS: Famotidine 20 MG TAB PO SCH ×2 (07:31→20:26)
[2021-02-09] MEDS: Lisinopril 10 MG TAB PO SCH (07:31)
[2021-02-09] MEDS: Lantus 1000 UNITS/10 ML VIAL SC SCH ×2 (07:33→20:27)
[2021-02-09] MEDS: Citalopram 20 MG TAB PO SCH (07:34)
[2021-02-09] MEDS: Zinc Sulfate 220 MG CAP PO SCH (07:35)
[2021-02-09] MEDS: Enoxaparin Sodium 60 MG/0.6 ML SYRINGE SC SCH ×2 (07:35→20:26)
[2021-02-09] MEDS: metFORMIN 500 MG TAB PO SCH ×2 (07:35→20:26)
[2021-02-09] MEDS: Amlodipine 10 MG TAB PO SCH (07:35)
[2021-02-09] MEDS ORDERED: Dextrose 5% in Water 1,000 ML IV PRN (10:50)
[2021-02-09] MEDS ORDERED: Dextrose 50% Abboject 50 ML SYRINGE SLOW IVP PRN (10:50)
[2021-02-09] MEDS ORDERED: REMDESIVIR 200 MG in Sodium Chloride 0.9% 250 ML 210 ML IV SCH (12:00)
[2021-02-09] MEDS: HumaLOG 300 UNITS/3 ML VIAL SC PRN (12:20)
[2021-02-09] MEDS: Acetaminophen 325 MG TAB PO PRN (16:14)
[2021-02-09] MEDS: Benzonatate 100 MG CAP PO PRN (16:14)
[2021-02-09] MEDS: Colchicine 0.6 MG TAB PO SCH (20:26)
[2021-02-10] MEDS: Cefepime 1 GM in Sodium Chloride 0.9% 100 ML IVPB SCH ×2 (01:20→10:02)
[2021-02-10 03:49] LABS: #Lymphocytes 0.9 thou/uL (1.20-3.40); #Monocytes 0.2 thou/uL (0.11-0.59); #Neutrophils 7.8 thou/uL (1.40-6.50); %Basophils 0.3 % (0.0-1.0); %Lymphocytes 10.3 % (21.0-51.0); %Monocytes 2.3 % (0.0-10.0); %Neutrophils 87.1 % (42.0-75.0); Hemoglobin 12.9 g/dL (14.0-18.0); Mean Corpuscular Hemoglobin 29.1 pg (27.0-31.0); Mean Corpuscular Volume 88.3 fL (78.0-98.0); Mean Platelet Volume 8.5 fL (7.4-10.4); Platelet Count 232 thou/uL (130-400); RBC Distribution Width 13.7 % (11.5-14.5); Red Blood Cell (RBC) Count 4.45 mill/uL (4.70-6.10)
[2021-02-10 04:05] LABS: Anion Gap 17 mmol/L (10-20); BUN (Urea Nitrogen) 23 mg/dL (8.4-25.7); Calc. Creatinine Clearance 101 mL/min (70-130); Calcium 8.3 mg/dL (7.8-10.44); Carbon Dioxide 18 mmol/L (22-29); Chloride 105 mmol/L (98-107); Glucose 304 mg/dL (70-105); Potassium 3.5 mmol/L (3.5-5.1); Sodium 136 mmol/L (136-145)
[2021-02-10] MEDS: Lisinopril 10 MG TAB PO SCH (08:21)
[2021-02-10] MEDS: Zinc Sulfate 220 MG CAP PO SCH (08:21)
[2021-02-10] MEDS: Amlodipine 10 MG TAB PO SCH (08:21)
[2021-02-10] MEDS: Citalopram 20 MG TAB PO SCH (08:21)
[2021-02-10] MEDS: Dexamethasone 4 MG TAB PO SCH ×2 (08:21→16:59)
[2021-02-10] MEDS: Colchicine 0.6 MG TAB PO SCH ×2 (08:21→21:32)
[2021-02-10] MEDS: metFORMIN 500 MG TAB PO SCH ×2 (08:21→21:33)
[2021-02-10] MEDS: Enoxaparin Sodium 60 MG/0.6 ML SYRINGE SC SCH ×2 (08:21→21:33)
[2021-02-10] MEDS: Famotidine 20 MG TAB PO SCH ×2 (08:21→21:32)
[2021-02-10] MEDS: Benzonatate 100 MG CAP PO PRN (08:39)
[2021-02-10] MEDS: Lantus 1000 UNITS/10 ML VIAL SC SCH ×2 (09:17→21:33)
[2021-02-10] MEDS ORDERED: metFORMIN 500 MG TAB PO SCH (10:00)
[2021-02-10] MEDS: HumaLOG 300 UNITS/3 ML VIAL SC PRN ×3 (10:59→21:34)
[2021-02-10] MEDS: REMDESIVIR 100 MG in Sodium Chloride 0.9% 250 ML 230 ML IV SCH (12:06)
[2021-02-11] MEDS: Cefepime 1 GM in Sodium Chloride 0.9% 100 ML IVPB SCH ×2 (02:32→11:42)
[2021-02-11] MEDS: HumaLOG 300 UNITS/3 ML VIAL SC PRN ×4 (07:15→21:01)
[2021-02-11] MEDS: Enoxaparin Sodium 60 MG/0.6 ML SYRINGE SC SCH ×2 (09:11→21:00)
[2021-02-11] MEDS: Colchicine 0.6 MG TAB PO SCH ×2 (09:11→21:00)
[2021-02-11] MEDS: Citalopram 20 MG TAB PO SCH (09:11)
[2021-02-11] MEDS: Dexamethasone 4 MG TAB PO SCH ×2 (09:11→16:43)
[2021-02-11] MEDS: Amlodipine 10 MG TAB PO SCH (09:11)
[2021-02-11] MEDS: Famotidine 20 MG TAB PO SCH (09:11)
[2021-02-11] MEDS: Zinc Sulfate 220 MG CAP PO SCH (09:12)
[2021-02-11] MEDS: Lisinopril 10 MG TAB PO SCH (09:12)
[2021-02-11] MEDS: Lantus 1000 UNITS/10 ML VIAL SC SCH ×2 (09:12→21:01)
[2021-02-11] MEDS: metFORMIN 500 MG TAB PO SCH ×2 (09:12→21:00)
[2021-02-11] MEDS: REMDESIVIR 100 MG in Sodium Chloride 0.9% 250 ML 230 ML IV SCH (16:43)
[2021-02-11] MEDS: risperiDONE 1 MG TAB PO SCH (21:00)
[2021-02-11] MEDS: Benzonatate 100 MG CAP PO PRN (21:00)
[2021-02-12] MEDS: Cefepime 1 GM in Sodium Chloride 0.9% 100 ML IVPB SCH ×2 (00:13→11:32)
[2021-02-12] MEDS: HumaLOG 300 UNITS/3 ML VIAL SC PRN ×4 (06:01→20:22)
[2021-02-12] MEDS: Amlodipine 10 MG TAB PO SCH (09:28)
[2021-02-12] MEDS: Dexamethasone 4 MG TAB PO SCH ×2 (09:28→17:32)
[2021-02-12] MEDS: Enoxaparin Sodium 60 MG/0.6 ML SYRINGE SC SCH (09:29)
[2021-02-12] MEDS: Colchicine 0.6 MG TAB PO SCH ×2 (09:29→23:19)
[2021-02-12] MEDS: Citalopram 20 MG TAB PO SCH (09:29)
[2021-02-12] MEDS: Lantus 1000 UNITS/10 ML VIAL SC SCH ×2 (09:29→20:15)
[2021-02-12 09:30] LABS: #Lymphocytes 1.2 thou/uL (1.20-3.40); #Monocytes 0.4 thou/uL (0.11-0.59); #Neutrophils 7.1 thou/uL (1.40-6.50); %Eosinophils 0.1 % (0.0-10.0); %Lymphocytes 13.8 % (21.0-51.0); %Neutrophils 82.1 % (42.0-75.0); Hemoglobin 12.9 g/dL (14.0-18.0); Mean Corpuscular HGB CONC 31.7 g/dL (32.0-36.0); Mean Corpuscular Hemoglobin 27.7 pg (27.0-31.0); Mean Corpuscular Volume 87.4 fL (78.0-98.0); Mean Platelet Volume 8.1 fL (7.4-10.4); Platelet Count 276 thou/uL (130-400); RBC Distribution Width 13.8 % (11.5-14.5); Red Blood Cell (RBC) Count 4.64 mill/uL (4.70-6.10); White Blood Cell (WBC) Count 8.6 thou/uL (4.8-10.8)
[2021-02-12] MEDS: Lisinopril 10 MG TAB PO SCH (09:30)
[2021-02-12] MEDS: metFORMIN 500 MG TAB PO SCH ×2 (09:30→20:14)
[2021-02-12] MEDS: Zinc Sulfate 220 MG CAP PO SCH (09:30)
[2021-02-12 09:46] LABS: Anion Gap 16 mmol/L (10-20); BUN (Urea Nitrogen) 27 mg/dL (8.4-25.7); CRP (Inflammatory) 1.51 mg/dL (= or < 0.5); Calc. Creatinine Clearance 115 mL/min (70-130); Calcium 8.2 mg/dL (7.8-10.44); Carbon Dioxide 20 mmol/L (22-29); Chloride 105 mmol/L (98-107); Glucose 243 mg/dL (70-105); Potassium 3.5 mmol/L (3.5-5.1); Sodium 137 mmol/L (136-145)
[2021-02-12] MEDS: REMDESIVIR 100 MG in Sodium Chloride 0.9% 250 ML 230 ML IV SCH (15:41)
[2021-02-12] MEDS: risperiDONE 1 MG TAB PO SCH (20:14)
[2021-02-12] MEDS: Benzonatate 100 MG CAP PO PRN (20:14)
[2021-02-12] MEDS: Doxycycline 100 MG CAP PO SCH (20:14)
[2021-02-12] MEDS: Mometasone 200 MCG/Formoterol 5 MCG 120 PUFF INHALER INH SCH (22:10)
[2021-02-13] MEDS: Cefepime 1 GM in Sodium Chloride 0.9% 100 ML IVPB SCH ×3 (00:12→22:53)
[2021-02-13 03:58] LABS: Anion Gap 15 mmol/L (10-20); BUN (Urea Nitrogen) 27 mg/dL (8.4-25.7); CRP (Inflammatory) 1.03 mg/dL (= or < 0.5); Calc. Creatinine Clearance 113 mL/min (70-130); Calcium 8.4 mg/dL (7.8-10.44); Carbon Dioxide 21 mmol/L (22-29); Chloride 107 mmol/L (98-107); Glucose 162 mg/dL (70-105); Sodium 139 mmol/L (136-145)
[2021-02-13 04:28] LABS: Hemoglobin 12.7 g/dL (14.0-18.0); Hypochromia SLIGHT = 6-15 cells (100X) (0-5/hpf); Lymphocytes 13 % (21-51); MDiff Complete? YES; Mean Corpuscular HGB CONC 32.9 g/dL (32.0-36.0); Mean Corpuscular Hemoglobin 28.7 pg (27.0-31.0); Mean Corpuscular Volume 87.3 fL (78.0-98.0); Mean Platelet Volume 8.4 fL (7.4-10.4); Neutrophil 87 % (42-75); Platelet Count 271 thou/uL (130-400); Platelet Morphology Comment Appears Adequate; RBC Distribution Width 13.8 % (11.5-14.5)
[2021-02-13] MEDS: Dexamethasone 4 MG TAB PO SCH ×2 (08:11→16:46)
[2021-02-13] MEDS: Amlodipine 10 MG TAB PO SCH (08:14)
[2021-02-13] MEDS: Citalopram 20 MG TAB PO SCH (08:14)
[2021-02-13] MEDS: Doxycycline 100 MG CAP PO SCH ×2 (08:15→20:50)
[2021-02-13] MEDS: metFORMIN 500 MG TAB PO SCH ×2 (08:16→20:51)
[2021-02-13] MEDS: Lantus 1000 UNITS/10 ML VIAL SC SCH ×2 (08:16→20:51)
[2021-02-13] MEDS: Lisinopril 10 MG TAB PO SCH (08:16)
[2021-02-13] MEDS: Zinc Sulfate 220 MG CAP PO SCH (08:17)
[2021-02-13] MEDS: Colchicine 0.6 MG TAB PO SCH ×2 (08:19→20:50)
[2021-02-13] MEDS ORDERED: Enoxaparin Sodium 60 MG/0.6 ML SYRINGE SC SCH (09:00)
[2021-02-13] MEDS: REMDESIVIR 100 MG in Sodium Chloride 0.9% 250 ML 230 ML IV SCH (16:46)
[2021-02-13] MEDS: Enoxaparin Sodium 40 MG/0.4 ML SYRINGE SC SCH (20:50)
[2021-02-13] MEDS: Benzonatate 100 MG CAP PO PRN (20:51)
[2021-02-13] MEDS: risperiDONE 1 MG TAB PO SCH (20:51)
[2021-02-13] MEDS: HumaLOG 300 UNITS/3 ML VIAL SC PRN (20:52)
[2021-02-14] MEDS: HumaLOG 300 UNITS/3 ML VIAL SC PRN ×2 (06:33→17:07)
[2021-02-14] MEDS: Zinc Sulfate 220 MG CAP PO SCH (09:02)
[2021-02-14] MEDS: Amlodipine 10 MG TAB PO SCH (09:02)
[2021-02-14] MEDS: metFORMIN 500 MG TAB PO SCH ×2 (09:02→19:50)
[2021-02-14] MEDS: Citalopram 20 MG TAB PO SCH (09:02)
[2021-02-14] MEDS: Doxycycline 100 MG CAP PO SCH ×2 (09:02→19:49)
[2021-02-14] MEDS: Dexamethasone 4 MG TAB PO SCH ×2 (09:02→17:07)
[2021-02-14] MEDS: Lisinopril 10 MG TAB PO SCH (09:03)
[2021-02-14] MEDS: Enoxaparin Sodium 40 MG/0.4 ML SYRINGE SC SCH ×2 (09:03→19:50)
[2021-02-14] MEDS: Colchicine 0.6 MG TAB PO SCH ×3 (09:03→19:51)
[2021-02-14] MEDS: Lantus 1000 UNITS/10 ML VIAL SC SCH ×2 (09:03→19:51)
[2021-02-14] MEDS: Cefepime 1 GM in Sodium Chloride 0.9% 100 ML IVPB SCH (11:42)
[2021-02-14] MEDS: Mometasone 200 MCG/Formoterol 5 MCG 120 PUFF INHALER INH SCH ×3 (19:37→21:32)
[2021-02-14] MEDS: risperiDONE 1 MG TAB PO SCH (19:49)
[2021-02-14] MEDS: Acetaminophen 325 MG TAB PO PRN (23:44)
[2021-02-15] MEDS: Mometasone 200 MCG/Formoterol 5 MCG 120 PUFF INHALER INH SCH ×2 (05:42→20:08)
[2021-02-15] MEDS: HumaLOG 300 UNITS/3 ML VIAL SC PRN (05:42)
[2021-02-15] MEDS: Zinc Sulfate 220 MG CAP PO SCH (08:48)
[2021-02-15] MEDS: Amlodipine 10 MG TAB PO SCH (08:48)
[2021-02-15] MEDS: metFORMIN 500 MG TAB PO SCH ×2 (08:48→20:09)
[2021-02-15] MEDS: Lisinopril 10 MG TAB PO SCH (08:48)
[2021-02-15] MEDS: Colchicine 0.6 MG TAB PO SCH ×2 (08:49→20:09)
[2021-02-15] MEDS: Citalopram 20 MG TAB PO SCH (08:49)
[2021-02-15] MEDS: Dexamethasone 4 MG TAB PO SCH ×2 (08:49→17:02)
[2021-02-15] MEDS: Enoxaparin Sodium 40 MG/0.4 ML SYRINGE SC SCH ×2 (08:49→20:09)
[2021-02-15] MEDS: Doxycycline 100 MG CAP PO SCH ×2 (08:52→20:09)
[2021-02-15] MEDS: Lantus 1000 UNITS/10 ML VIAL SC SCH ×2 (08:52→20:10)
[2021-02-15] MEDS: risperiDONE 1 MG TAB PO SCH (20:09)
[2021-02-15] MEDS: Benzonatate 100 MG CAP PO PRN (20:09)
[2021-02-16] MEDS: HumaLOG 300 UNITS/3 ML VIAL SC PRN ×3 (05:35→17:32)
[2021-02-16] MEDS: Mometasone 200 MCG/Formoterol 5 MCG 120 PUFF INHALER INH SCH ×2 (05:35→17:41)
[2021-02-16] MEDS: Citalopram 20 MG TAB PO SCH (08:39)
[2021-02-16] MEDS: Enoxaparin Sodium 40 MG/0.4 ML SYRINGE SC SCH ×2 (08:39→22:06)
[2021-02-16] MEDS: Doxycycline 100 MG CAP PO SCH ×2 (08:39→22:05)
[2021-02-16] MEDS: Dexamethasone 4 MG TAB PO SCH ×2 (08:39→17:31)
[2021-02-16] MEDS: Lisinopril 10 MG TAB PO SCH (08:40)
[2021-02-16] MEDS: Amlodipine 10 MG TAB PO SCH (08:40)
[2021-02-16] MEDS: Colchicine 0.6 MG TAB PO SCH ×2 (08:40→22:05)
[2021-02-16] MEDS: Lantus 1000 UNITS/10 ML VIAL SC SCH ×2 (08:40→22:32)
[2021-02-16] MEDS: Zinc Sulfate 220 MG CAP PO SCH (08:40)
[2021-02-16] MEDS: metFORMIN 500 MG TAB PO SCH ×2 (08:40→22:05)
[2021-02-16] MEDS: Acetaminophen 325 MG TAB PO PRN (09:45)
[2021-02-16] MEDS: Benzonatate 100 MG CAP PO PRN (09:45)
[2021-02-16] MEDS: risperiDONE 1 MG TAB PO SCH (22:06)
[2021-02-17 07:11] LABS: Anion Gap 12 mmol/L (10-20); BUN (Urea Nitrogen) 24 mg/dL (8.4-25.7); Calc. Creatinine Clearance 124 mL/min (70-130); Carbon Dioxide 22 mmol/L (22-29); Chloride 104 mmol/L (98-107); Glucose 212 mg/dL (70-105); Potassium 4.5 mmol/L (3.5-5.1); Sodium 133 mmol/L (136-145)
[2021-02-17] MEDS: Mometasone 200 MCG/Formoterol 5 MCG 120 PUFF INHALER INH SCH ×2 (09:01→17:58)
[2021-02-17] MEDS: metFORMIN 500 MG TAB PO SCH ×2 (09:01→21:56)
[2021-02-17] MEDS: Citalopram 20 MG TAB PO SCH (09:01)
[2021-02-17] MEDS: Dexamethasone 4 MG TAB PO SCH ×2 (09:01→16:50)
[2021-02-17] MEDS: Colchicine 0.6 MG TAB PO SCH (09:02)
[2021-02-17] MEDS: Lisinopril 10 MG TAB PO SCH (09:02)
[2021-02-17] MEDS: Amlodipine 10 MG TAB PO SCH (09:02)
[2021-02-17] MEDS: Enoxaparin Sodium 40 MG/0.4 ML SYRINGE SC SCH ×2 (09:03→21:56)
[2021-02-17] MEDS: Zinc Sulfate 220 MG CAP PO SCH (09:03)
[2021-02-17] MEDS: Lantus 1000 UNITS/10 ML VIAL SC SCH ×2 (09:03→21:56)
[2021-02-17] MEDS: Doxycycline 100 MG CAP PO SCH ×2 (09:03→22:03)
[2021-02-17] MEDS: HumaLOG 300 UNITS/3 ML VIAL SC PRN ×2 (11:30→16:51)
[2021-02-17] MEDS: guaiFENesin ER 600 MG TAB PO SCH (21:55)
[2021-02-17] MEDS: risperiDONE 1 MG TAB PO SCH (21:55)
[2021-02-18 06:37] LABS: Hemoglobin 13.5 g/dL (14.0-18.0); Mean Corpuscular HGB CONC 33.2 g/dL (32.0-36.0); Mean Corpuscular Volume 87.5 fL (78.0-98.0); Mean Platelet Volume 8.8 fL (7.4-10.4); Platelet Count 215 thou/uL (130-400); RBC Distribution Width 14.8 % (11.5-14.5); Red Blood Cell (RBC) Count 4.65 mill/uL (4.70-6.10)
[2021-02-18 06:51] LABS: Anion Gap 13 mmol/L (10-20); BUN (Urea Nitrogen) 25 mg/dL (8.4-25.7); Calc. Creatinine Clearance 127 mL/min (70-130); Carbon Dioxide 20 mmol/L (22-29); Chloride 103 mmol/L (98-107); Glucose 171 mg/dL (70-105); Magnesium 2.3 mg/dL (1.6-2.6); Potassium 4.7 mmol/L (3.5-5.1); Sodium 131 mmol/L (136-145)
[2021-02-18 06:55] LABS: Band 3 % (5-11); Lymphocytes 8 % (21-51); MDiff Complete? YES; Monocytes 3 % (0-10); Neutrophil 86 % (42-75); White Blood Cell (WBC) Count 10.3 thou/uL (4.8-10.8)
[2021-02-18] MEDS: metFORMIN 500 MG TAB PO SCH ×2 (08:45→20:37)
[2021-02-18] MEDS: guaiFENesin ER 600 MG TAB PO SCH ×2 (08:45→20:37)
[2021-02-18] MEDS: Lantus 1000 UNITS/10 ML VIAL SC SCH ×2 (08:45→20:38)
[2021-02-18] MEDS: Doxycycline 100 MG CAP PO SCH ×2 (08:45→20:37)
[2021-02-18] MEDS: Zinc Sulfate 220 MG CAP PO SCH (08:45)
[2021-02-18] MEDS: Citalopram 20 MG TAB PO SCH (08:46)
[2021-02-18] MEDS: Dexamethasone 4 MG TAB PO SCH ×2 (08:46→16:45)
[2021-02-18] MEDS: Lisinopril 10 MG TAB PO SCH (08:46)
[2021-02-18] MEDS: Mometasone 200 MCG/Formoterol 5 MCG 120 PUFF INHALER INH SCH ×2 (08:46→18:08)
[2021-02-18] MEDS: Enoxaparin Sodium 40 MG/0.4 ML SYRINGE SC SCH ×2 (08:47→20:37)
[2021-02-18] MEDS: Amlodipine 10 MG TAB PO SCH (08:47)
[2021-02-18] MEDS: HumaLOG 300 UNITS/3 ML VIAL SC PRN (16:42)
[2021-02-18] MEDS: risperiDONE 1 MG TAB PO SCH (20:35)
[2021-02-19] MEDS: HumaLOG 300 UNITS/3 ML VIAL SC PRN (05:55)
[2021-02-19] MEDS: Mometasone 200 MCG/Formoterol 5 MCG 120 PUFF INHALER INH SCH (05:55)
[2021-02-19 07:27] VITALS: TEMP 98.2
[2021-02-19] MEDS: Zinc Sulfate 220 MG CAP PO SCH (08:34)
[2021-02-19] MEDS: Amlodipine 10 MG TAB PO SCH (08:34)
[2021-02-19] MEDS: Doxycycline 100 MG CAP PO SCH (08:34)
[2021-02-19] MEDS: metFORMIN 500 MG TAB PO SCH (08:34)
[2021-02-19] MEDS: Citalopram 20 MG TAB PO SCH (08:34)
[2021-02-19] MEDS: Lisinopril 10 MG TAB PO SCH (08:34)
[2021-02-19] MEDS: Dexamethasone 4 MG TAB PO SCH (08:34)
[2021-02-19] MEDS: Lantus 1000 UNITS/10 ML VIAL SC SCH (08:35)
[2021-02-19] MEDS: Enoxaparin Sodium 40 MG/0.4 ML SYRINGE SC SCH (08:35)
[2021-02-19] MEDS: guaiFENesin ER 600 MG TAB PO SCH (08:35)
[2021-02-19 08:37] VITALS: BP 116/68
[2021-02-20] MEDS ORDERED: Dexamethasone 4 MG TAB PO SCH (09:00)
== END 2021-02-19 14:24 | disposition home or self-care (01) | DRG 177 ==
LOC: ERS 20:38 → IMCU/EMU 02-09 00:10 → T4-A 02-14 23:07
PROVIDERS: ADMIT Internal Medicine; ATTEND Internal Medicine
PROC: 5A0955A Assistance with Respiratory Ventilation, Greater than 96 Consecutive Hours, High Flow/Velocity Cannula (ICD-10-PCS; 2021-02-08)
PROC: 8E0ZXY6 Isolation (ICD-10-PCS; 2021-02-08)
PROC: XW033E5 Introduction of Remdesivir Anti-infective into Peripheral Vein, Percutaneous Approach, New Technology Group 5 (ICD-10-PCS; principal; 2021-02-09)
DX: U07.1 COVID-19 (principal); J96.01 Acute respiratory failure with hypoxia; J12.82 Pneumonia due to coronavirus disease 2019; N17.9 Acute kidney failure, unspecified; E87.1 Hypo-osmolality and hyponatremia; E87.6 Hypokalemia; R94.5 Abnormal results of liver function studies; F41.9 Anxiety disorder, unspecified; E66.9 Obesity, unspecified; D53.9 Nutritional anemia, unspecified; N18.2 Chronic kidney disease, stage 2 (mild); E11.22 Type 2 diabetes mellitus with diabetic chronic kidney disease; F32.9 Major depressive disorder, single episode, unspecified; E78.00 Pure hypercholesterolemia, unspecified; E78.5 Hyperlipidemia, unspecified; F20.9 Schizophrenia, unspecified; I12.9 Hypertensive chronic kidney disease with stage 1 through stage 4 chronic kidney disease, or unspecified chronic kidney disease; F12.11 Cannabis abuse, in remission; E11.65 Type 2 diabetes mellitus with hyperglycemia; T38.0X5A Adverse effect of glucocorticoids and synthetic analogues, initial encounter; Z68.36 Body mass index [BMI] 36.0-36.9, adult; Z79.899 Other long term (current) drug therapy; Z87.891 Personal history of nicotine dependence; Z98.49 Cataract extraction status, unspecified eye; Z82.49 Family history of ischemic heart disease and other diseases of the circulatory system; Z79.4 Long term (current) use of insulin
CPT/HCPCS: 36415; 36416; 71045; 80048; 80053; 80069; 82728; 83735; 84443; 84484; 85007; 85025; 85027; 85379; 86140; 93005; 96374; J0692; J1100; J1650; J1815; J3490; J7050; J8540

== ENCOUNTER 2021-02-19 15:53 | Observation (INO) | payer SELFPAY ==
[~2021-02-19 15:53] MED LIST: Iopamidol-370 76% 500 ML 1 ML ONE
[2021-02-19 17:26] LABS: #Lymphocytes 0.7 thou/uL (1.20-3.40); #Monocytes 0.5 thou/uL (0.11-0.59); #Neutrophils 9.1 thou/uL (1.40-6.50); %Basophils 0.2 % (0.0-1.0); %Eosinophils 0.1 % (0.0-10.0); %Lymphocytes 6.8 % (21.0-51.0); %Monocytes 4.5 % (0.0-10.0); %Neutrophils 88.4 % (42.0-75.0); Hemoglobin 14.3 g/dL (14.0-18.0); Mean Corpuscular HGB CONC 31.6 g/dL (32.0-36.0); Mean Corpuscular Hemoglobin 27.7 pg (27.0-31.0); Mean Corpuscular Volume 87.8 fL (78.0-98.0); Mean Platelet Volume 8.9 fL (7.4-10.4); Platelet Count 213 thou/uL (130-400); Red Blood Cell (RBC) Count 5.16 mill/uL (4.70-6.10); White Blood Cell (WBC) Count 10.3 thou/uL (4.8-10.8)
[2021-02-19 17:55] LABS: ALT (SGPT) 128 U/L (8-55); AST (SGOT) 25 U/L (5-34); Albumin 3.2 g/dL (3.5-5.0); Alkaline Phosphatase 52 U/L (40-110); Anion Gap 18 mmol/L (10-20); BUN (Urea Nitrogen) 30 mg/dL (8.4-25.7); Bilirubin, Total 0.7 mg/dL (0.2-1.2); Calc. Creatinine Clearance 0 mL/min (70-130); Calcium 8.6 mg/dL (7.8-10.44); Carbon Dioxide 19 mmol/L (22-29); Chloride 101 mmol/L (98-107); Globulin 2.8 g/dL (2.4-3.5); Glucose 186 mg/dL (70-105); Potassium 4.5 mmol/L (3.5-5.1); Sodium 133 mmol/L (136-145)
[2021-02-19 19:20] LABS: Bilirubin Negative (Negative); Blood, Urine Negative (Negative); Clarity Clear (Clear); Glucose, Urine (Dipstick) Normal (Negative); Ketone, Urine Negative (Negative); Leukocyte Negative Leu/uL (Negative); Nitrite Negative (Negative); Protein, Urine (Dipstick) 20 mg/dL (Neg-Trace); Urobilinogen Normal mg/dL (Less than 2)
[2021-02-19] MEDS ORDERED: Ondansetron ODT 4 MG TAB PO PRN (21:47)
[2021-02-19] MEDS ORDERED: Ondansetron PF 4 MG/2 ML Vial IVP PRN (21:47)
[2021-02-19] MEDS ORDERED: Acetaminophen 325 MG TAB PO PRN (21:47)
[2021-02-19] MEDS ORDERED: HYDROcodone/Acetaminophen 5/325 mg Tablet PO PRN (21:47)
[2021-02-19 23:25] LABS: Troponin I 0.029 ng/mL (< 0.028)
[2021-02-20] MEDS ORDERED: Dextrose 50% Abboject 50 ML SYRINGE SLOW IVP PRN (00:45)
[2021-02-20] MEDS ORDERED: HumaLOG 300 UNITS/3 ML VIAL SC PRN ×2 (00:45→19:21)
[2021-02-20] MEDS ORDERED: Dextrose 5% in Water 1,000 ML IV PRN (00:45)
[2021-02-20 01:00] VITALS: BMI 35.5
[2021-02-20] MEDS ORDERED: risperiDONE 1 MG TAB PO SCH (01:00)
[2021-02-20] MEDS: risperiDONE 1 MG TAB PO SCH ×2 (01:07→22:21)
[2021-02-20 02:54] LABS: Troponin I 0.022 ng/mL (< 0.028)
[2021-02-20 04:39] LABS: #Monocytes 0.5 thou/uL (0.11-0.59); #Neutrophils 9.1 thou/uL (1.40-6.50); %Basophils 0.1 % (0.0-1.0); %Eosinophils 0.1 % (0.0-10.0); %Lymphocytes 9.4 % (21.0-51.0); %Monocytes 4.6 % (0.0-10.0); %Neutrophils 85.7 % (42.0-75.0); Hemoglobin 12.9 g/dL (14.0-18.0); Mean Corpuscular HGB CONC 32.9 g/dL (32.0-36.0); Mean Corpuscular Hemoglobin 29.1 pg (27.0-31.0); Mean Corpuscular Volume 88.4 fL (78.0-98.0); Mean Platelet Volume 8.5 fL (7.4-10.4); Platelet Count 186 thou/uL (130-400); RBC Distribution Width 15.1 % (11.5-14.5); Red Blood Cell (RBC) Count 4.45 mill/uL (4.70-6.10); White Blood Cell (WBC) Count 10.7 thou/uL (4.8-10.8)
[2021-02-20 04:51] LABS: Anion Gap 11 mmol/L (10-20); BUN (Urea Nitrogen) 26 mg/dL (8.4-25.7); Calc. Creatinine Clearance 124 mL/min (70-130); Calcium 7.9 mg/dL (7.8-10.44); Carbon Dioxide 19 mmol/L (22-29); Chloride 107 mmol/L (98-107); Glucose 271 mg/dL (70-105); Potassium 4.6 mmol/L (3.5-5.1); Sodium 132 mmol/L (136-145)
[2021-02-20] MEDS: HumaLOG 300 UNITS/3 ML VIAL SC PRN ×2 (07:27→18:18)
[2021-02-20] MEDS ORDERED: Nitroglycerin 0.4 MG TAB (25 Tab Bottle) SL PRN (08:17)
[2021-02-20] MEDS: Cholecalciferol (Vitamin D3) 400 UNITS TAB PO SCH (08:23)
[2021-02-20] MEDS: Ascorbic Acid 500 mg Chewable Tablet PO SCH (08:23)
[2021-02-20] MEDS: Enoxaparin Sodium 40 MG/0.4 ML SYRINGE SC SCH (08:23)
[2021-02-20] MEDS: Zinc Sulfate 220 MG CAP PO SCH (08:24)
[2021-02-20] MEDS: Citalopram 20 MG TAB PO SCH (08:24)
[2021-02-20] MEDS ORDERED: Amlodipine 10 MG TAB PO SCH (09:00)
[2021-02-20] MEDS: Aspirin 325 mg Enteric Coated Tablet PO SCH (09:02)
[2021-02-20] MEDS ORDERED: Albuterol 200 PUFF (6.7GM INHALER) INH PRN (19:15)
[2021-02-20] MEDS ORDERED: Lantus 1000 UNITS/10 ML VIAL SC SCH (19:30)
[2021-02-20] MEDS ORDERED: Dexamethasone 4 MG TAB PO SCH ×2 (19:30→21:00)
[2021-02-20] MEDS: Famotidine 20 MG TAB PO SCH (22:22)
[2021-02-21 07:12] VITALS: BP 115/59; TEMP 97.1
[2021-02-21] MEDS: Ascorbic Acid 500 mg Chewable Tablet PO SCH (07:53)
[2021-02-21] MEDS: Aspirin 325 mg Enteric Coated Tablet PO SCH (07:53)
[2021-02-21] MEDS: Famotidine 20 MG TAB PO SCH (07:53)
[2021-02-21] MEDS: Zinc Sulfate 220 MG CAP PO SCH (07:53)
[2021-02-21] MEDS: Enoxaparin Sodium 40 MG/0.4 ML SYRINGE SC SCH (07:53)
[2021-02-21] MEDS: Cholecalciferol (Vitamin D3) 400 UNITS TAB PO SCH (07:54)
[2021-02-21] MEDS: Citalopram 20 MG TAB PO SCH (07:54)
[2021-02-21] MEDS ORDERED: Dexamethasone 4 MG TAB PO SCH (08:00)
[2021-02-21] MEDS ORDERED: Lisinopril 10 MG TAB PO SCH (09:00)
[2021-02-21] MEDS ORDERED: Zinc Sulfate 220 MG CAP PO SCH (09:00)
== END 2021-02-21 14:36 | disposition home or self-care (01) ==
LOC: ERS 15:53 → 2SW 21:20
PROVIDERS: ADMIT Student in an Organized Health Care Education/Training Program; ATTEND Internal Medicine
DX: R55 Syncope and collapse (principal); I44.7 Left bundle-branch block, unspecified; U07.1 COVID-19; J12.82 Pneumonia due to coronavirus disease 2019; I10 Essential (primary) hypertension; E78.5 Hyperlipidemia, unspecified; E11.65 Type 2 diabetes mellitus with hyperglycemia; D53.9 Nutritional anemia, unspecified; F12.11 Cannabis abuse, in remission; J32.9 Chronic sinusitis, unspecified; M25.562 Pain in left knee; E66.9 Obesity, unspecified; Z68.35 Body mass index [BMI] 35.0-35.9, adult; Z87.891 Personal history of nicotine dependence; Z79.84 Long term (current) use of oral hypoglycemic drugs; Z79.899 Other long term (current) drug therapy
CPT/HCPCS: 36415; 36416; 70450; 71275; 80048; 80053; 81003; 82728; 83735; 84484; 85025; 86140; 93005; 94760; 96372; G0378; J1650; J1815; J8540; Q9967

== ENCOUNTER 2021-03-07 12:00 | Emergency (ER) | payer SELFPAY ==
[2021-03-07] MEDS ORDERED: Ondansetron ODT 4 MG TAB ONE (13:35)
== END 2021-03-07 15:18 | disposition home or self-care (01) ==
LOC: ERS 12:00
DX: R06.02 Shortness of breath (principal); R11.0 Nausea; E78.5 Hyperlipidemia, unspecified; E78.00 Pure hypercholesterolemia, unspecified; E11.9 Type 2 diabetes mellitus without complications; I10 Essential (primary) hypertension; Z87.891 Personal history of nicotine dependence; Z79.4 Long term (current) use of insulin
CPT/HCPCS: 71045; Q0162

== ENCOUNTER 2021-06-04 12:02 | Emergency (ER) | payer OTHER | END 2021-06-04 15:07 | disposition home or self-care (01) | LOC: ERS 12:02 | DX: L21.9 Seborrheic dermatitis, unspecified (principal); E78.00 Pure hypercholesterolemia, unspecified; E11.9 Type 2 diabetes mellitus without complications; F17.290 Nicotine dependence, other tobacco product, uncomplicated | CPT/HCPCS: 99282 ==

== ENCOUNTER 2021-06-07 09:53 | Inpatient (IN) | payer OTHER, SELFPAY ==
[2021-06-07 11:58] LABS: Bilirubin Negative (Negative); Blood, Urine Negative (Negative); Clarity Clear (Clear); Glucose, Urine (Dipstick) Normal (Negative); Ketone, Urine Negative (Negative); Leukocyte Negative Leu/uL (Negative); Nitrite Negative (Negative); Protein, Urine (Dipstick) Negative (Neg-Trace); Specific Gravity, Urine 1.012 (1.002-1.036); Urobilinogen Normal mg/dL (Less than 2); pH, Urine 7.5 (5.0-9.0)
[2021-06-07 12:20] LABS: #Lymphocytes 1.9 thou/uL (1.20-3.40); #Monocytes 0.8 thou/uL (0.11-0.59); #Neutrophils 5.8 thou/uL (1.40-6.50); %Basophils 0.5 % (0.0-1.0); %Eosinophils 0.5 % (0.0-10.0); %Lymphocytes 22.2 % (21.0-51.0); %Monocytes 9.3 % (0.0-10.0); %Neutrophils 67.5 % (42.0-75.0); Hemoglobin 14.3 g/dL (14.0-18.0); Mean Corpuscular HGB CONC 32.9 g/dL (32.0-36.0); Mean Corpuscular Hemoglobin 29.4 pg (27.0-31.0); Mean Corpuscular Volume 89.4 fL (78.0-98.0); Mean Platelet Volume 8.4 fL (7.4-10.4); Platelet Count 250 thou/uL (130-400); RBC Distribution Width 14.6 % (11.5-14.5); Red Blood Cell (RBC) Count 4.87 mill/uL (4.70-6.10); White Blood Cell (WBC) Count 8.6 thou/uL (4.8-10.8)
[2021-06-07 12:43] LABS: ALT (SGPT) 20 U/L (8-55); AST (SGOT) 18 U/L (5-34); Albumin 4.1 g/dL (3.5-5.0); Alkaline Phosphatase 72 U/L (40-110); Anion Gap 17 mmol/L (10-20); BUN (Urea Nitrogen) 9 mg/dL (8.4-25.7); Bilirubin, Total 0.7 mg/dL (0.2-1.2); Calc. Creatinine Clearance 0 mL/min (70-130); Calcium 8.4 mg/dL (7.8-10.44); Carbon Dioxide 28 mmol/L (22-29); Chloride 102 mmol/L (98-107); Globulin 2.7 g/dL (2.4-3.5); Glucose 105 mg/dL (70-105); Lipase 23 U/L (8-78); Protein, Total 6.8 g/dL (6.0-8.3); Sodium 144 mmol/L (136-145)
[2021-06-07 12:50] LABS: Potassium 2.9 mmol/L (3.5-5.1)
[2021-06-07] MEDS ORDERED: Potassium Chloride 20 MEQ TAB ONE (13:01)
[2021-06-07 13:41] LABS: Magnesium 0.9 mg/dL (1.6-2.6)
[2021-06-07] MEDS ORDERED: Acetaminophen 325 MG TAB PO PRN (15:22)
[2021-06-07] MEDS ORDERED: Electrolyte Replacement Protocol 1 EACH FS PRN (15:30)
[2021-06-07] MEDS ORDERED: Dextrose 5% in Water 1,000 ML IV PRN (15:34)
[2021-06-07] MEDS ORDERED: HumaLOG 300 UNITS/3 ML VIAL SC PRN (15:34)
[2021-06-07] MEDS ORDERED: metroNIDAZOLE 250 MG TAB ONE (15:35)
[2021-06-07] MEDS ORDERED: Ciprofloxacin 500 MG TAB ONE (15:35)
[2021-06-07] MEDS ORDERED: Metoclopramide HCl 10 MG/2 ML VIAL IVP PRN (15:44)
[2021-06-07] MEDS ORDERED: Morphine 2 MG/ML VIAL SLOW IVP PRN (15:44)
[2021-06-07] MEDS ORDERED: Dextrose 50% Abboject 50 ML SYRINGE SLOW IVP PRN (15:48)
[2021-06-07] MEDS ORDERED: Piperacillin/Tazobactam 3.375 GM in Sodium Chloride 0.9% 100 ML IVPB SCH ×2 (16:15→18:00)
[2021-06-07 16:38] VITALS: BMI 33.3
[2021-06-07 17:48] LABS: Magnesium 1.6 mg/dL (1.6-2.6)
[2021-06-07 18:15] LABS: Potassium 2.8 mmol/L (3.5-5.1)
[2021-06-07] MEDS: Potassium Chloride 40 MEQ in Sodium Chloride 0.9% 250 ML 250 ML IVPB SCH (18:45)
[2021-06-07] MEDS: Piperacillin/Tazobactam 3.375 GM in Sodium Chloride 0.9% 100 ML IVPB SCH (20:09)
[2021-06-07] MEDS ORDERED: Magnesium 2 GM/50 ML 2 GM in Premix Bag 1 BAG IVPB SCH (22:45)
[2021-06-08 00:39] LABS: SARS-CoV-2 PCR by NAA Not Detected (NotDetected)
[2021-06-08] MEDS: Potassium Chloride 40 MEQ in Sodium Chloride 0.9% 250 ML 250 ML IVPB SCH (02:23)
[2021-06-08 05:07] LABS: #Basophils 0.1 thou/uL (0.0-0.2); #Eosinphils 0.2 thou/uL (0.0-0.7); #Lymphocytes 1.8 thou/uL (1.20-3.40); #Monocytes 0.7 thou/uL (0.11-0.59); #Neutrophils 5.3 thou/uL (1.40-6.50); %Eosinophils 2.1 % (0.0-10.0); %Lymphocytes 22.3 % (21.0-51.0); %Monocytes 8.2 % (0.0-10.0); %Neutrophils 66.5 % (42.0-75.0); Hemoglobin 12.3 g/dL (14.0-18.0); Mean Corpuscular HGB CONC 32.2 g/dL (32.0-36.0); Mean Corpuscular Volume 89.9 fL (78.0-98.0); Mean Platelet Volume 8.5 fL (7.4-10.4); Platelet Count 253 thou/uL (130-400); RBC Distribution Width 14.6 % (11.5-14.5); Red Blood Cell (RBC) Count 4.26 mill/uL (4.70-6.10); White Blood Cell (WBC) Count 7.9 thou/uL (4.8-10.8)
[2021-06-08 05:28] LABS: Anion Gap 10 mmol/L (10-20); BUN (Urea Nitrogen) 12 mg/dL (8.4-25.7); Calc. Creatinine Clearance 93 mL/min (70-130); Calcium 8.3 mg/dL (7.8-10.44); Carbon Dioxide 28 mmol/L (22-29); Chloride 104 mmol/L (98-107); Glucose 172 mg/dL (70-105); Potassium 3.2 mmol/L (3.5-5.1); Sodium 139 mmol/L (136-145)
[2021-06-08] MEDS: Piperacillin/Tazobactam 3.375 GM in Sodium Chloride 0.9% 100 ML IVPB SCH ×3 (05:42→20:30)
[2021-06-08] MEDS ORDERED: Magnesium 2 GM/50 ML 2 GM in Premix Bag 1 BAG IVPB SCH (06:00)
[2021-06-08] MEDS ORDERED: Potassium Chloride 40 MEQ in Sodium Chloride 0.9% 250 ML 250 ML IVPB SCH (06:00)
[2021-06-08] MEDS ORDERED: Potassium Chloride 20 MEQ TAB PO SCH (08:15)
[2021-06-08] MEDS ORDERED: Morphine 4 MG/ML VIAL SLOW IVP PRN (09:14)
[2021-06-08] MEDS: HumaLOG 300 UNITS/3 ML VIAL SC PRN (11:28)
[2021-06-08] MEDS ORDERED: Enoxaparin Sodium 40 MG/0.4 ML SYRINGE SC SCH (13:00)
[2021-06-08] MEDS ORDERED: HYDROmorphone 0.5 MG/0.5 ML SYRINGE SLOW IVP SCH (13:15)
[2021-06-08] MEDS ORDERED: FLU VACC QS2021-22(6MOS UP)/PF 60 MCG/0.5 ML SYRINGE IM ONE (16:45)
[2021-06-09] MEDS: Piperacillin/Tazobactam 3.375 GM in Sodium Chloride 0.9% 100 ML IVPB SCH (05:45)
[2021-06-09] MEDS: HumaLOG 300 UNITS/3 ML VIAL SC PRN (05:47)
[2021-06-09 07:39] LABS: Anion Gap 12 mmol/L (10-20); BUN (Urea Nitrogen) 7 mg/dL (8.4-25.7); Calc. Creatinine Clearance 110 mL/min (70-130); Calcium 8.3 mg/dL (7.8-10.44); Carbon Dioxide 26 mmol/L (22-29); Chloride 104 mmol/L (98-107); Glucose 173 mg/dL (70-105); Potassium 3.4 mmol/L (3.5-5.1); Sodium 139 mmol/L (136-145)
[2021-06-09 08:38] VITALS: BP 123/74; TEMP 98.3
[2021-06-09] MEDS ORDERED: HumuLIN 70/30 (300 UNITS/3 ML VIAL) SC SCH (09:00)
[2021-06-09] MEDS ORDERED: Enoxaparin Sodium 40 MG/0.4 ML SYRINGE SC SCH (09:00)
[2021-06-09] MEDS ORDERED: Potassium Chloride 20 MEQ TAB PO SCH ×2 (10:15→11:45)
== END 2021-06-09 12:39 | disposition home or self-care (01) | DRG 392 ==
LOC: ERS 09:53 → 2NO 15:15 → OBSVTOIN 06-08 09:58 → T4-B 06-08 22:53
PROVIDERS: ADMIT Family Medicine; ATTEND Internal Medicine
DX: K57.12 Diverticulitis of small intestine without perforation or abscess without bleeding (principal); E11.9 Type 2 diabetes mellitus without complications; I10 Essential (primary) hypertension; E78.5 Hyperlipidemia, unspecified; E87.6 Hypokalemia; E83.42 Hypomagnesemia; F32.9 Major depressive disorder, single episode, unspecified; E66.9 Obesity, unspecified; R94.31 Abnormal electrocardiogram [ECG] [EKG]; Z20.822 Contact with and (suspected) exposure to COVID-19; F20.9 Schizophrenia, unspecified; Z79.4 Long term (current) use of insulin; Z98.42 Cataract extraction status, left eye; Z87.891 Personal history of nicotine dependence; Z68.33 Body mass index [BMI] 33.0-33.9, adult
CPT/HCPCS: 36415; 36416; 74176; 80048; 80053; 81003; 83690; 83735; 85025; 93005; 96365; J1650; J1815; J2270; J2543; J3475; J3480; J3490; J7050; U0003; U0005

== ENCOUNTER 2021-08-16 08:30 | Emergency (ER) | payer OTHER, SELFPAY ==
[2021-08-16 15:50] LABS: SARS-CoV-2 PCR by NAA Not Detected (NotDetected)
== END 2021-08-16 10:15 | disposition home or self-care (01) ==
LOC: ERS 08:30
DX: R50.9 Fever, unspecified (principal); R05.9 Cough, unspecified; I10 Essential (primary) hypertension; E11.9 Type 2 diabetes mellitus without complications; E78.00 Pure hypercholesterolemia, unspecified; Z87.891 Personal history of nicotine dependence; Z79.84 Long term (current) use of oral hypoglycemic drugs; Z79.4 Long term (current) use of insulin; Z20.822 Contact with and (suspected) exposure to COVID-19
CPT/HCPCS: 99283; U0003; U0005

== ENCOUNTER 2021-10-12 13:29 | Emergency (ER) | payer SELFPAY ==
[2021-10-12] MEDS ORDERED: diphenhydrAMINE 50 MG/ML VIAL ONE (14:08)
[2021-10-12 14:13] LABS: #Basophils 0.1 thou/uL (0.0-0.2); #Eosinphils 0.1 thou/uL (0.0-0.7); #Lymphocytes 1.6 thou/uL (1.20-3.40); #Monocytes 0.5 thou/uL (0.11-0.59); #Neutrophils 3.7 thou/uL (1.40-6.50); %Basophils 1.2 % (0.0-1.0); %Eosinophils 1.2 % (0.0-10.0); %Lymphocytes 27.6 % (21.0-51.0); %Monocytes 7.8 % (0.0-10.0); %Neutrophils 62.2 % (42.0-75.0); Hemoglobin 14.5 g/dL (14.0-18.0); Mean Corpuscular HGB CONC 31.9 g/dL (32.0-36.0); Mean Corpuscular Hemoglobin 28.3 pg (27.0-31.0); Mean Corpuscular Volume 88.6 fL (78.0-98.0); Platelet Count 300 thou/uL (130-400); RBC Distribution Width 14.8 % (11.5-14.5); Red Blood Cell (RBC) Count 5.15 mill/uL (4.70-6.10); White Blood Cell (WBC) Count 5.9 thou/uL (4.8-10.8)
[2021-10-12 14:33] LABS: ALT (SGPT) 55 U/L (8-55); AST (SGOT) 42 U/L (5-34); Albumin 4.6 g/dL (3.5-5.0); Alkaline Phosphatase 83 U/L (40-110); Anion Gap 12 mmol/L (10-20); BUN (Urea Nitrogen) 12 mg/dL (8.4-25.7); Bilirubin, Total 0.9 mg/dL (0.2-1.2); Calc. Creatinine Clearance 0 mL/min (70-130); Calcium 9.3 mg/dL (7.8-10.44); Carbon Dioxide 31 mmol/L (22-29); Chloride 96 mmol/L (98-107); Globulin 3.5 g/dL (2.4-3.5); Glucose 223 mg/dL (70-105); Protein, Total 8.1 g/dL (6.0-8.3); Sodium 136 mmol/L (136-145)
[2021-10-12 14:43] LABS: Potassium 2.8 mmol/L (3.5-5.1)
[2021-10-12] MEDS ORDERED: Potassium Chloride 20 MEQ TAB ONE (14:50)
== END 2021-10-12 15:01 | disposition home or self-care (01) ==
LOC: ERS 13:29
DX: R07.9 Chest pain, unspecified (principal); L29.9 Pruritus, unspecified; I10 Essential (primary) hypertension; E11.9 Type 2 diabetes mellitus without complications; E78.00 Pure hypercholesterolemia, unspecified; Z87.891 Personal history of nicotine dependence
CPT/HCPCS: 71045; 80053; 84484; 85025; 93005; 96374; J1200

== ENCOUNTER 2021-11-30 16:34 | Observation (INO) | payer SELFPAY ==
[2021-11-30 17:15] LABS: #Basophils 0.1 thou/uL (0.0-0.2); #Eosinphils 0.1 thou/uL (0.0-0.7); #Lymphocytes 1.8 thou/uL (1.20-3.40); #Monocytes 0.5 thou/uL (0.11-0.59); #Neutrophils 3.8 thou/uL (1.40-6.50); %Basophils 1.2 % (0.0-1.0); %Eosinophils 1.7 % (0.0-10.0); %Lymphocytes 28.2 % (21.0-51.0); %Monocytes 8.2 % (0.0-10.0); %Neutrophils 60.6 % (42.0-75.0); Hemoglobin 13.2 g/dL (14.0-18.0); Mean Corpuscular HGB CONC 30.8 g/dL (32.0-36.0); Mean Corpuscular Volume 90.9 fL (78.0-98.0); Mean Platelet Volume 8.3 fL (7.4-10.4); Platelet Count 290 thou/uL (130-400); RBC Distribution Width 14.9 % (11.5-14.5); White Blood Cell (WBC) Count 6.2 thou/uL (4.8-10.8)
[2021-11-30 17:35] LABS: ALT (SGPT) 30 U/L (8-55); AST (SGOT) 24 U/L (5-34); Albumin 4.3 g/dL (3.5-5.0); Alkaline Phosphatase 88 U/L (40-110); Anion Gap 16 mmol/L (10-20); BUN (Urea Nitrogen) 12 mg/dL (8.4-25.7); Bilirubin, Total 0.4 mg/dL (0.2-1.2); CK (CPK) 312 U/L (30-200); Calc. Creatinine Clearance 0 mL/min (70-130); Calcium 9.3 mg/dL (7.8-10.44); Carbon Dioxide 23 mmol/L (22-29); Chloride 101 mmol/L (98-107); Globulin 2.8 g/dL (2.4-3.5); Glucose 112 mg/dL (70-105); Lipase 41 U/L (8-78); Protein, Total 7.1 g/dL (6.0-8.3); Sodium 137 mmol/L (136-145)
[2021-11-30 17:46] LABS: Potassium 2.9 mmol/L (3.5-5.1)
[2021-11-30] MEDS ORDERED: Potassium Chloride 20 MEQ TAB ONE (17:56)
[2021-11-30 17:59] LABS: Bilirubin Negative (Negative); Blood, Urine Negative (Negative); Clarity Clear (Clear); Glucose, Urine (Dipstick) Normal (Negative); Ketone, Urine Negative (Negative); Leukocyte Negative Leu/uL (Negative); Nitrite Negative (Negative); Protein, Urine (Dipstick) Negative (Neg-Trace); Specific Gravity, Urine 1.006 (1.002-1.036); Urobilinogen Normal mg/dL (Less than 2); pH, Urine 6.5 (5.0-9.0)
[2021-11-30 18:17] LABS: Magnesium 1.4 mg/dL (1.6-2.6)
[2021-11-30] MEDS ORDERED: Ondansetron PF 4 MG/2 ML Vial IVP PRN (19:37)
[2021-11-30] MEDS ORDERED: Acetaminophen 325 MG TAB PO PRN (19:37)
[2021-11-30] MEDS ORDERED: Bisacodyl 5 MG TAB PO PRN (19:37)
[2021-11-30] MEDS ORDERED: Senokot S 8.6-50 MG TAB PO PRN (19:37)
[2021-11-30] MEDS ORDERED: Aspirin 325 MG TAB ONE (19:39)
[2021-11-30] MEDS ORDERED: Enoxaparin Sodium 100 MG/ML SYRINGE ONE (19:39)
[2021-11-30] MEDS ORDERED: Aspirin Chewable 81 MG TAB ONE (19:39)
[2021-11-30] MEDS ORDERED: Sodium Chloride 0.9% 1,000 ML IV SCH ×2 (19:45→23:45)
[2021-11-30] MEDS ORDERED: Nitroglycerin 0.4 MG TAB (25 Tab Bottle) SL PRN (19:52)
[2021-11-30] MEDS ORDERED: Morphine 4 MG/ML VIAL SLOW IVP PRN ×2 (19:56→19:58)
[2021-11-30] MEDS ORDERED: Magnesium 2 GM/50 ML BAG (IN WATER) ONE (20:39)
[2021-11-30 21:07] LABS: Troponin I 0.014 ng/mL (< 0.028)
[2021-11-30 21:54] VITALS: BMI 35.3
[2021-12-01 00:14] LABS: Phosphorus 2.4 mg/dL (2.3-4.7)
[2021-12-01 00:15] LABS: Magnesium 1.9 mg/dL (1.6-2.6); Potassium 3.2 mmol/L (3.5-5.1)
[2021-12-01 00:21] LABS: Troponin I Less than 0.010 ng/mL (< 0.028)
[2021-12-01] MEDS ORDERED: Potassium Chloride 20 MEQ TAB PO SCH (04:00)
[2021-12-01 08:09] LABS: #Basophils 0.1 thou/uL (0.0-0.2); #Eosinphils 0.2 thou/uL (0.0-0.7); #Lymphocytes 2.2 thou/uL (1.20-3.40); #Monocytes 0.7 thou/uL (0.11-0.59); #Neutrophils 3.2 thou/uL (1.40-6.50); %Basophils 1.2 % (0.0-1.0); %Eosinophils 2.5 % (0.0-10.0); %Lymphocytes 35.2 % (21.0-51.0); %Monocytes 10.4 % (0.0-10.0); %Neutrophils 50.7 % (42.0-75.0); Hemoglobin 12.9 g/dL (14.0-18.0); Mean Corpuscular HGB CONC 32.5 g/dL (32.0-36.0); Mean Corpuscular Hemoglobin 29.3 pg (27.0-31.0); Mean Corpuscular Volume 90.1 fL (78.0-98.0); Mean Platelet Volume 7.9 fL (7.4-10.4); Platelet Count 271 thou/uL (130-400); RBC Distribution Width 14.7 % (11.5-14.5); Red Blood Cell (RBC) Count 4.42 mill/uL (4.70-6.10); White Blood Cell (WBC) Count 6.4 thou/uL (4.8-10.8)
[2021-12-01 08:36] LABS: ALT (SGPT) 27 U/L (8-55); AST (SGOT) 24 U/L (5-34); Albumin 3.6 g/dL (3.5-5.0); Alkaline Phosphatase 69 U/L (40-110); Anion Gap 10 mmol/L (10-20); BUN (Urea Nitrogen) 11 mg/dL (8.4-25.7); Bilirubin, Total 0.4 mg/dL (0.2-1.2); Calc. Creatinine Clearance 104 mL/min (70-130); Calcium 8.5 mg/dL (7.8-10.44); Carbon Dioxide 26 mmol/L (22-29); Chloride 105 mmol/L (98-107); Globulin 2.9 g/dL (2.4-3.5); Glucose 108 mg/dL (70-105); Magnesium 1.8 mg/dL (1.6-2.6); Potassium 3.4 mmol/L (3.5-5.1); Protein, Total 6.5 g/dL (6.0-8.3); Sodium 138 mmol/L (136-145)
[2021-12-01] MEDS ORDERED: ADENOSINE 60 MG/20 ML VIAL ONE (10:47)
[2021-12-01] MEDS: HumuLIN 70/30 (300 UNITS/3 ML VIAL) SC SCH (15:08)
[2021-12-01] MEDS: Pantoprazole 40 MG VIAL IVP SCH (16:04)
[2021-12-01] MEDS: Enoxaparin Sodium 40 MG/0.4 ML SYRINGE SC SCH (16:04)
[2021-12-01] MEDS ORDERED: Dextrose 50% Abboject 50 ML SYRINGE SLOW IVP PRN (18:12)
[2021-12-01] MEDS ORDERED: Dextrose 5% in Water 1,000 ML IV PRN (18:12)
[2021-12-01] MEDS: HumaLOG 300 UNITS/3 ML VIAL SC PRN ×2 (18:32→18:48)
[2021-12-01] MEDS: Lisinopril 2.5 MG TAB PO SCH (20:43)
[2021-12-01] MEDS ORDERED: hydrOXYzine Pamoate 25 mg Capsule PO SCH (21:00)
[2021-12-01] MEDS ORDERED: risperiDONE 1 MG TAB PO SCH (21:00)
[2021-12-01] MEDS ORDERED: Atorvastatin Calcium 20 MG TAB PO SCH (21:00)
[2021-12-01 21:24] LABS: SARS-CoV-2 PCR by NAA Not Detected (NotDetected)
[2021-12-02 05:10] LABS: #Eosinphils 0.2 thou/uL (0.0-0.7); #Lymphocytes 2.2 thou/uL (1.20-3.40); #Monocytes 0.6 thou/uL (0.11-0.59); #Neutrophils 3.4 thou/uL (1.40-6.50); %Basophils 0.7 % (0.0-1.0); %Eosinophils 3.8 % (0.0-10.0); %Lymphocytes 33.1 % (21.0-51.0); %Monocytes 9.8 % (0.0-10.0); %Neutrophils 52.6 % (42.0-75.0); Hemoglobin 11.8 g/dL (14.0-18.0); Mean Corpuscular Volume 90.4 fL (78.0-98.0); Mean Platelet Volume 7.7 fL (7.4-10.4); Platelet Count 274 thou/uL (130-400); RBC Distribution Width 14.8 % (11.5-14.5); Red Blood Cell (RBC) Count 4.07 mill/uL (4.70-6.10); White Blood Cell (WBC) Count 6.5 thou/uL (4.8-10.8)
[2021-12-02 05:25] LABS: Anion Gap 9 mmol/L (10-20); BUN (Urea Nitrogen) 11 mg/dL (8.4-25.7); Calc. Creatinine Clearance 97 mL/min (70-130); Calcium 8.1 mg/dL (7.8-10.44); Carbon Dioxide 27 mmol/L (22-29); Chloride 105 mmol/L (98-107); Glucose 157 mg/dL (70-105); Potassium 3.2 mmol/L (3.5-5.1); Sodium 138 mmol/L (136-145)
[2021-12-02] MEDS ORDERED: Carvedilol 6.25 MG TAB PO SCH (08:00)
[2021-12-02] MEDS: Lisinopril 2.5 MG TAB PO SCH (08:31)
[2021-12-02] MEDS: Pantoprazole 40 MG VIAL IVP SCH (08:34)
[2021-12-02] MEDS: Enoxaparin Sodium 40 MG/0.4 ML SYRINGE SC SCH (08:42)
[2021-12-02] MEDS: HumuLIN 70/30 (300 UNITS/3 ML VIAL) SC SCH (09:11)
[2021-12-02] MEDS ORDERED: Iopamidol-370 76% 500 ML 1 ML ONE (10:28)
[2021-12-02] MEDS ORDERED: Lidocaine 2% Viscous Solution 10 ML, Aluminum & Magnesium Hydroxide 30 ML SSW SCH (11:15)
[2021-12-02] MEDS: HumaLOG 300 UNITS/3 ML VIAL SC PRN (11:24)
[2021-12-02 16:48] VITALS: BP 126/62; TEMP 98
== END 2021-12-02 16:20 | disposition home or self-care (01) ==
LOC: ERS 16:34 → 2SW 19:37
PROVIDERS: ADMIT Internal Medicine; ATTEND Internal Medicine
DX: R07.89 Other chest pain (principal); I42.9 Cardiomyopathy, unspecified; E87.6 Hypokalemia; E83.42 Hypomagnesemia; I11.0 Hypertensive heart disease with heart failure; I50.20 Unspecified systolic (congestive) heart failure; E11.9 Type 2 diabetes mellitus without complications; E78.5 Hyperlipidemia, unspecified; I08.8 Other rheumatic multiple valve diseases; Z86.16 Personal history of COVID-19; Z87.891 Personal history of nicotine dependence; Z79.4 Long term (current) use of insulin; Z79.84 Long term (current) use of oral hypoglycemic drugs; Z79.899 Other long term (current) drug therapy; Z20.822 Contact with and (suspected) exposure to COVID-19
CPT/HCPCS: 36415; 36416; 71045; 71275; 78452; 80048; 80053; 81003; 82550; 83690; 83735; 83880; 84100; 84484; 85025; 85379; 93005; 93017; 93306; 94760; 96372; 96374; 96375; A9500; C9113; G0378; J0153; J1650; J1815; J2270; J3475; J7050; Q0177; Q9967; U0003; U0005

== ENCOUNTER 2022-01-15 10:39 | Emergency (ER) | payer SELFPAY ==
[2022-01-15] MEDS ORDERED: Acetaminophen 500 MG TAB ONE (12:20)
[2022-01-15 12:27] LABS: Bilirubin Negative (Negative); Blood, Urine Negative (Negative); Clarity Clear (Clear); Glucose, Urine (Dipstick) Normal (Negative); Ketone, Urine Negative (Negative); Leukocyte Negative Leu/uL (Negative); Nitrite Negative (Negative); Protein, Urine (Dipstick) Negative (Neg-Trace); Specific Gravity, Urine 1.016 (1.002-1.036); Urobilinogen Normal mg/dL (Less than 2); pH, Urine 5.5 (5.0-9.0)
== END 2022-01-15 13:13 | disposition home or self-care (01) ==
LOC: ERS 10:39
DX: M54.6 Pain in thoracic spine (principal); R10.9 Unspecified abdominal pain; E11.9 Type 2 diabetes mellitus without complications; I10 Essential (primary) hypertension; E78.5 Hyperlipidemia, unspecified; Z79.4 Long term (current) use of insulin; Z79.84 Long term (current) use of oral hypoglycemic drugs; Z87.891 Personal history of nicotine dependence
CPT/HCPCS: 74176; 81003

== ENCOUNTER 2022-02-18 09:33 | Emergency (ER) | payer SELFPAY | END 2022-02-18 10:20 | disposition home or self-care (01) | LOC: ERS 09:33 | DX: R05.9 Cough, unspecified (principal); Z20.822 Contact with and (suspected) exposure to COVID-19; E11.9 Type 2 diabetes mellitus without complications; E78.00 Pure hypercholesterolemia, unspecified; I10 Essential (primary) hypertension; Z87.891 Personal history of nicotine dependence | CPT/HCPCS: 99283; U0003; U0005 ==

== ENCOUNTER 2022-03-01 14:25 | Observation (INO) | payer SELFPAY ==
[2022-03-01 15:08] LABS: #Basophils 0.1 thou/uL (0.0-0.2); #Eosinphils 0.1 thou/uL (0.0-0.7); #Monocytes 0.5 thou/uL (0.11-0.59); #Neutrophils 3.9 thou/uL (1.40-6.50); %Basophils 1.1 % (0.0-1.0); %Eosinophils 2.2 % (0.0-10.0); %Monocytes 8.1 % (0.0-10.0); %Neutrophils 58.7 % (42.0-75.0); Hemoglobin 13.8 g/dL (14.0-18.0); Mean Corpuscular Hemoglobin 28.3 pg (27.0-31.0); Mean Corpuscular Volume 88.3 fL (78.0-98.0); Mean Platelet Volume 9.1 fL (7.4-10.4); Platelet Count 239 thou/uL (130-400); RBC Distribution Width 14.7 % (11.5-14.5); White Blood Cell (WBC) Count 6.6 thou/uL (4.8-10.8)
[2022-03-01 15:36] LABS: ALT (SGPT) 16 U/L (8-55); AST (SGOT) 15 U/L (5-34); Albumin 3.8 g/dL (3.5-5.0); Alkaline Phosphatase 74 U/L (40-110); Anion Gap 13 mmol/L (10-20); BUN (Urea Nitrogen) 13 mg/dL (8.4-25.7); Bilirubin, Total 0.4 mg/dL (0.2-1.2); Calc. Creatinine Clearance 0 mL/min (70-130); Calcium 9.4 mg/dL (7.8-10.44); Carbon Dioxide 25 mmol/L (22-29); Chloride 103 mmol/L (98-107); Estimated GFR 74; Glucose 184 mg/dL (70-105); Potassium 3.4 mmol/L (3.5-5.1); Protein, Total 6.8 g/dL (6.0-8.3); Sodium 138 mmol/L (136-145)
[2022-03-01] MEDS ORDERED: Aspirin Chewable 81 MG TAB ONE (18:02)
[2022-03-01 18:41] LABS: Troponin I 0.018 ng/mL (< 0.028)
[2022-03-01] MEDS ORDERED: Dextrose 50% Abboject 50 ML SYRINGE SLOW IVP PRN (19:46)
[2022-03-01] MEDS ORDERED: Dextrose 5% in Water 1,000 ML IV PRN (19:46)
[2022-03-01] MEDS ORDERED: HumaLOG 300 UNITS/3 ML VIAL SC PRN ×2 (19:46)
[2022-03-01] MEDS ORDERED: HYDROcodone/Acetaminophen 5/325 mg Tablet PO PRN (19:46)
[2022-03-01] MEDS ORDERED: Nitroglycerin 0.4 MG TAB (25 Tab Bottle) SL PRN (19:46)
[2022-03-01] MEDS ORDERED: Guaifenesin DM 100-10/5 ML UDCUP PO PRN (19:46)
[2022-03-01] MEDS ORDERED: Acetaminophen 325 MG TAB PO PRN (19:46)
[2022-03-01] MEDS ORDERED: Zolpidem Tartrate 5 MG TAB PO PRN (19:46)
[2022-03-01] MEDS ORDERED: hydrALAZINE 20 MG/ML VIAL SLOW IVP PRN (19:50)
[2022-03-01] MEDS ORDERED: Aspirin 325 MG TAB PO SCH (20:00)
[2022-03-01] MEDS: guaiFENesin ER 600 MG TAB PO SCH (22:13)
[2022-03-01] MEDS: Famotidine 20 MG TAB PO SCH (22:13)
[2022-03-01] MEDS: metFORMIN 500 MG TAB PO SCH (22:13)
[2022-03-01] MEDS: Lisinopril 2.5 MG TAB PO SCH (22:13)
[2022-03-01] MEDS: risperiDONE 1 MG TAB PO SCH (22:14)
[2022-03-01] MEDS: Potassium Chloride 10 MEQ TAB PO SCH (22:14)
[2022-03-01 22:41] LABS: Troponin I 0.014 ng/mL (< 0.028)
[2022-03-01 22:49] VITALS: BMI 36.8
[2022-03-02 04:54] LABS: #Basophils 0.1 thou/uL (0.0-0.2); #Eosinphils 0.2 thou/uL (0.0-0.7); #Lymphocytes 2.6 thou/uL (1.20-3.40); #Monocytes 0.6 thou/uL (0.11-0.59); #Neutrophils 3.2 thou/uL (1.40-6.50); %Basophils 1.5 % (0.0-1.0); %Eosinophils 3.1 % (0.0-10.0); %Lymphocytes 37.9 % (21.0-51.0); %Monocytes 9.6 % (0.0-10.0); %Neutrophils 47.9 % (42.0-75.0); Hemoglobin 13.5 g/dL (14.0-18.0); Mean Corpuscular HGB CONC 32.5 g/dL (32.0-36.0); Mean Corpuscular Hemoglobin 28.8 pg (27.0-31.0); Mean Corpuscular Volume 88.7 fL (78.0-98.0); Mean Platelet Volume 9.4 fL (7.4-10.4); Platelet Count 215 thou/uL (130-400); RBC Distribution Width 14.7 % (11.5-14.5); Red Blood Cell (RBC) Count 4.69 mill/uL (4.70-6.10); White Blood Cell (WBC) Count 6.7 thou/uL (4.8-10.8)
[2022-03-02 05:19] LABS: ALT (SGPT) 17 U/L (8-55); AST (SGOT) 18 U/L (5-34); Albumin 3.4 g/dL (3.5-5.0); Alkaline Phosphatase 65 U/L (40-110); Anion Gap 15 mmol/L (10-20); BUN (Urea Nitrogen) 14 mg/dL (8.4-25.7); Bilirubin, Total 0.4 mg/dL (0.2-1.2); Calc. Creatinine Clearance 111 mL/min (70-130); Calcium 9.3 mg/dL (7.8-10.44); Carbon Dioxide 24 mmol/L (22-29); Chloride 104 mmol/L (98-107); Estimated GFR 85; Glucose 114 mg/dL (70-105); Magnesium 1.3 mg/dL (1.6-2.6); Potassium 3.6 mmol/L (3.5-5.1); Protein, Total 6.4 g/dL (6.0-8.3); Sodium 139 mmol/L (136-145)
[2022-03-02] MEDS ORDERED: Magnesium 2 GM/50 ML(in water) 2 GM in Premix Bag 1 BAG IVPB SCH (08:30)
[2022-03-02] MEDS: Aspirin Chewable 81 MG TAB PO SCH (10:10)
[2022-03-02] MEDS: Lisinopril 2.5 MG TAB PO SCH (10:10)
[2022-03-02] MEDS: Citalopram 20 MG TAB PO SCH (10:11)
[2022-03-02] MEDS: Carvedilol 6.25 MG TAB PO SCH ×2 (10:11→18:04)
[2022-03-02] MEDS: Famotidine 20 MG TAB PO SCH ×2 (10:11→21:21)
[2022-03-02] MEDS: guaiFENesin ER 600 MG TAB PO SCH ×2 (10:11→21:21)
[2022-03-02] MEDS: Potassium Chloride 10 MEQ TAB PO SCH ×2 (10:11→21:21)
[2022-03-02] MEDS: Atorvastatin Calcium 40 MG TAB PO SCH (10:11)
[2022-03-02] MEDS: metFORMIN 500 MG TAB PO SCH ×2 (10:11→21:21)
[2022-03-02] MEDS: Clopidogrel Bisulfate 75 MG TAB PO SCH (10:12)
[2022-03-02] MEDS: Enoxaparin Sodium 40 MG/0.4 ML SYRINGE SC SCH (10:12)
[2022-03-02] MEDS: HumuLIN 70/30 (300 UNITS/3 ML VIAL) SC SCH (10:12)
[2022-03-02] MEDS ORDERED: hydrALAZINE 20 MG/ML VIAL SLOW IVP SCH (11:35)
[2022-03-02] MEDS ORDERED: Lisinopril 10 MG TAB PO SCH ×2 (12:00→21:00)
[2022-03-02] MEDS ORDERED: cloNIDine 0.1 MG TAB PO SCH (17:45)
[2022-03-02] MEDS: risperiDONE 1 MG TAB PO SCH (21:21)
[2022-03-02] MEDS: Lisinopril 10 MG TAB PO SCH (21:21)
[2022-03-03] MEDS ORDERED: cloNIDine 0.1 MG TAB PO SCH (09:00)
[2022-03-03] MEDS: Enoxaparin Sodium 40 MG/0.4 ML SYRINGE SC SCH (09:16)
[2022-03-03] MEDS: guaiFENesin ER 600 MG TAB PO SCH (09:18)
[2022-03-03] MEDS: Aspirin Chewable 81 MG TAB PO SCH (09:18)
[2022-03-03] MEDS: Famotidine 20 MG TAB PO SCH (09:19)
[2022-03-03] MEDS: Citalopram 20 MG TAB PO SCH (09:19)
[2022-03-03] MEDS: Atorvastatin Calcium 40 MG TAB PO SCH (09:19)
[2022-03-03] MEDS: Potassium Chloride 10 MEQ TAB PO SCH (09:19)
[2022-03-03] MEDS: Lisinopril 10 MG TAB PO SCH (09:19)
[2022-03-03] MEDS: metFORMIN 500 MG TAB PO SCH (09:19)
[2022-03-03] MEDS: Clopidogrel Bisulfate 75 MG TAB PO SCH (09:19)
[2022-03-03] MEDS: HumuLIN 70/30 (300 UNITS/3 ML VIAL) SC SCH (09:20)
[2022-03-03] MEDS: Carvedilol 6.25 MG TAB PO SCH (09:20)
[2022-03-03 12:32] VITALS: BP 146/73; TEMP 98
== END 2022-03-03 13:20 | disposition home or self-care (01) ==
LOC: ERS 14:25 → 2SW 17:47
PROVIDERS: ADMIT Family Medicine; ATTEND Family Medicine
DX: R07.89 Other chest pain (principal); R05.3 Chronic cough; I42.8 Other cardiomyopathies; U09.9 Post COVID-19 condition, unspecified; I11.0 Hypertensive heart disease with heart failure; I50.30 Unspecified diastolic (congestive) heart failure; E11.9 Type 2 diabetes mellitus without complications; E87.6 Hypokalemia; J45.909 Unspecified asthma, uncomplicated; E78.5 Hyperlipidemia, unspecified; I25.10 Atherosclerotic heart disease of native coronary artery without angina pectoris; K21.9 Gastro-esophageal reflux disease without esophagitis; Z87.891 Personal history of nicotine dependence; Z79.4 Long term (current) use of insulin; Z79.84 Long term (current) use of oral hypoglycemic drugs; Z79.899 Other long term (current) drug therapy; Z20.822 Contact with and (suspected) exposure to COVID-19
CPT/HCPCS: 36415; 36416; 71045; 80053; 83690; 83735; 84484; 85025; 85379; 93005; 94640; 94760; 96365; 96372; 96375; 96376; G0378; J0360; J1650; J1815; J3475; J7620; U0003; U0005

== ENCOUNTER 2022-03-16 15:52 | Emergency (ER) | payer SELFPAY ==
[2022-03-16 16:58] LABS: #Basophils 0.1 thou/uL (0.0-0.2); #Eosinphils 0.3 thou/uL (0.0-0.7); #Lymphocytes 1.9 thou/uL (1.20-3.40); #Monocytes 0.6 thou/uL (0.11-0.59); #Neutrophils 2.9 thou/uL (1.40-6.50); %Basophils 1.8 % (0.0-1.0); %Eosinophils 4.8 % (0.0-10.0); %Lymphocytes 32.6 % (21.0-51.0); %Monocytes 10.1 % (0.0-10.0); %Neutrophils 50.8 % (42.0-75.0); Hemoglobin 14.6 g/dL (14.0-18.0); Mean Corpuscular HGB CONC 31.7 g/dL (32.0-36.0); Mean Corpuscular Hemoglobin 28.2 pg (27.0-31.0); Mean Corpuscular Volume 89.1 fL (78.0-98.0); Mean Platelet Volume 9.1 fL (7.4-10.4); Platelet Count 233 thou/uL (130-400); RBC Distribution Width 14.7 % (11.5-14.5); Red Blood Cell (RBC) Count 5.16 mill/uL (4.70-6.10); White Blood Cell (WBC) Count 5.7 thou/uL (4.8-10.8)
[2022-03-16 17:21] LABS: ALT (SGPT) 14 U/L (8-55); AST (SGOT) 15 U/L (5-34); Alkaline Phosphatase 70 U/L (40-110); Anion Gap 20 mmol/L (10-20); BUN (Urea Nitrogen) 13 mg/dL (8.4-25.7); Bilirubin, Total 0.4 mg/dL (0.2-1.2); Calc. Creatinine Clearance 0 mL/min (70-130); Calcium 9.2 mg/dL (7.8-10.44); Carbon Dioxide 21 mmol/L (22-29); Chloride 102 mmol/L (98-107); Estimated GFR 71; Globulin 3.2 g/dL (2.4-3.5); Glucose 105 mg/dL (70-105); Potassium 3.7 mmol/L (3.5-5.1); Protein, Total 7.2 g/dL (6.0-8.3); Sodium 139 mmol/L (136-145)
== END 2022-03-16 17:52 | disposition home or self-care (01) ==
LOC: ERS 15:52
DX: K92.1 Melena (principal); E11.9 Type 2 diabetes mellitus without complications; E78.5 Hyperlipidemia, unspecified; I10 Essential (primary) hypertension; Z87.891 Personal history of nicotine dependence
CPT/HCPCS: 36415; 80053; 85025; 86850; 86900; 86901; 94760

== ENCOUNTER 2022-03-20 09:27 | Emergency (ER) | payer SELFPAY ==
[2022-03-20] MEDS ORDERED: Oxymetazoline HCl 0.05% (30 ML BOT) ONE (10:57)
== END 2022-03-20 11:04 | disposition home or self-care (01) ==
LOC: ERS 09:27
DX: J02.9 Acute pharyngitis, unspecified (principal); E11.9 Type 2 diabetes mellitus without complications; E78.5 Hyperlipidemia, unspecified; I11.0 Hypertensive heart disease with heart failure; I50.9 Heart failure, unspecified; Z20.822 Contact with and (suspected) exposure to COVID-19; Z87.891 Personal history of nicotine dependence; Z79.4 Long term (current) use of insulin; Z79.84 Long term (current) use of oral hypoglycemic drugs
CPT/HCPCS: U0003; U0005

== ENCOUNTER 2022-08-08 18:28 | Emergency (ER) | payer SELFPAY ==
[2022-08-08 20:03] LABS: SARS-CoV-2 NAA Rapid Test Not Detected (NotDetected)
[2022-08-08] MEDS ORDERED: cefTRIAXone\\ROCEPHIN 1 GM VIAL ONE (20:19)
[2022-08-08] MEDS ORDERED: Azithromycin 250 MG TAB ONE (20:19)
[2022-08-08] MEDS ORDERED: Lidocaine 1% PF 5 ML VIAL ONE (20:20)
== END 2022-08-08 20:47 | disposition home or self-care (01) ==
LOC: ERS 18:28
DX: J18.9 Pneumonia, unspecified organism (principal); E78.5 Hyperlipidemia, unspecified; E11.9 Type 2 diabetes mellitus without complications; I11.0 Hypertensive heart disease with heart failure; I50.9 Heart failure, unspecified; Z87.891 Personal history of nicotine dependence; Z20.822 Contact with and (suspected) exposure to COVID-19; Z79.84 Long term (current) use of oral hypoglycemic drugs; Z79.4 Long term (current) use of insulin
CPT/HCPCS: 71045; 96372; J0696

== ENCOUNTER 2022-10-03 09:35 | Inpatient (IN) | payer OTHER, SELFPAY ==
[2022-10-03 11:02] LABS: #Eosinphils 0.2 thou/uL (0.0-0.7); #Lymphocytes 1.7 thou/uL (1.20-3.40); #Monocytes 0.6 thou/uL (0.11-0.59); #Neutrophils 3.2 thou/uL (1.40-6.50); %Basophils 0.7 % (0.0-1.0); %Lymphocytes 30.3 % (21.0-51.0); Hemoglobin 12.3 g/dL (14.0-18.0); Mean Corpuscular HGB CONC 30.8 g/dL (32.0-36.0); Mean Corpuscular Hemoglobin 26.3 pg (27.0-31.0); Mean Corpuscular Volume 85.3 fl (78.0-98.0); Mean Platelet Volume 9.9 fL (7.4-10.4); Platelet Count 229 10x3/uL (130-400); RBC Distribution Width 15.7 % (11.5-14.5); Red Blood Cell (RBC) Count 4.67 mill/uL (4.70-6.10); White Blood Cell (WBC) Count 5.7 10x3/uL (4.8-10.8)
[2022-10-03] MEDS ORDERED: Furosemide 40 MG/4 ML VIAL ONE (11:03)
[2022-10-03] MEDS ORDERED: Nitroglycerin 2% Ointment 1 INCH/1 GM Packet ONE (11:03)
[2022-10-03 11:18] LABS: ALT (SGPT) 15 U/L (8-55); AST (SGOT) 19 U/L (5-34); Albumin 3.8 g/dL (3.4-4.8); Alkaline Phosphatase 71 U/L (40-110); Anion Gap 16 mmol/L (10-20); BUN (Urea Nitrogen) 13 mg/dL (8.4-25.7); Bilirubin, Total 0.6 mg/dL (0.2-1.2); Calc. Creatinine Clearance 0 mL/min (70-130); Calcium 9.1 mg/dL (7.8-10.44); Carbon Dioxide 23 mmol/L (23-31); Chloride 104 mmol/L (98-107); Estimated GFR 74; Globulin 2.9 g/dL (2.4-3.5); Glucose 114 mg/dL (80-115); Potassium 4.2 mmol/L (3.5-5.1); Protein, Total 6.7 g/dL (5.8-8.1); Sodium 139 mmol/L (136-145)
[2022-10-03] MEDS ORDERED: Acetaminophen 500 MG TAB ONE (13:42)
[2022-10-03] MEDS ORDERED: Dextrose 5% in Water 1,000 ML IV PRN (14:33)
[2022-10-03] MEDS ORDERED: HumaLOG 300 UNITS/3 ML VIAL SC PRN (14:33)
[2022-10-03] MEDS ORDERED: Dextrose 50% Abboject 50 ML SYRINGE SLOW IVP PRN (14:33)
[2022-10-03] MEDS ORDERED: Senokot S 8.6-50 MG TAB PO PRN (14:42)
[2022-10-03] MEDS ORDERED: Ondansetron PF 4 MG/2 ML Vial IVP PRN (14:42)
[2022-10-03] MEDS ORDERED: Ondansetron ODT 4 MG TAB PO PRN (14:42)
[2022-10-03 14:54] LABS: SARS-CoV-2 NAA Rapid Test Not Detected (NotDetected)
[2022-10-03 15:21] LABS: Magnesium 1.5 mg/dL (1.6-2.6)
[2022-10-03 15:56] VITALS: BMI 38.0
[2022-10-03] MEDS ORDERED: Magnesium 2 GM/50 ML(in water) 2 GM in Premix Bag 1 BAG IVPB ONE (16:23)
[2022-10-03] MEDS ORDERED: Carvedilol 6.25 MG TAB PO SCH (17:00)
[2022-10-03] MEDS ORDERED: Furosemide 40 MG/4 ML VIAL SLOW IVP SCH (19:00)
[2022-10-03] MEDS: Atorvastatin Calcium 40 MG TAB PO SCH (19:41)
[2022-10-03] MEDS: hydrOXYzine Pamoate 25 mg Capsule PO SCH (19:42)
[2022-10-03] MEDS: Lisinopril 5 MG TAB PO SCH (19:43)
[2022-10-03] MEDS: risperiDONE 1 MG TAB PO SCH (19:43)
[2022-10-03] MEDS: Acetaminophen 325 MG TAB PO PRN (20:43)
[2022-10-03] MEDS ORDERED: Lisinopril 5 MG TAB PO SCH (21:00)
[2022-10-03] MEDS ORDERED: Famotidine 20 MG TAB PO SCH (21:00)
[2022-10-04 05:33] LABS: Anion Gap 14 mmol/L (10-20); BUN (Urea Nitrogen) 17 mg/dL (8.4-25.7); Calc. Creatinine Clearance 86 mL/min (70-130); Calcium 8.9 mg/dL (7.8-10.44); Carbon Dioxide 25 mmol/L (23-31); Chloride 101 mmol/L (98-107); Estimated GFR 62; Glucose 122 mg/dL (80-115); Hemoglobin A1c 7.1 % (4.0-6.0); Iron 38 ug/dL (65-175); Iron Binding Capacity, Total 295 mcg/dL (261-462); Magnesium 1.7 mg/dL (1.6-2.6); Potassium 3.2 mmol/L (3.5-5.1); Sodium 137 mmol/L (136-145)
[2022-10-04 05:42] LABS: Hemoglobin 11.8 g/dL (14.0-18.0); Mean Corpuscular HGB CONC 30.6 g/dL (32.0-36.0); Mean Corpuscular Hemoglobin 25.9 pg (27.0-31.0); Mean Corpuscular Volume 84.8 fl (78.0-98.0); Mean Platelet Volume 10.2 fL (7.4-10.4); Platelet Count 216 10x3/uL (130-400); RBC Distribution Width 15.9 % (11.5-14.5); Red Blood Cell (RBC) Count 4.54 mill/uL (4.70-6.10)
[2022-10-04 05:43] LABS: Eosinophils 1 % (0-10); Lymphocytes 24 % (21-51); MDiff Complete? YES; Monocytes 5 % (0-10); Neutrophil 67 % (42-75); Platelet Morphology Comment Appears Adequate; RBC Morphology Normal; Reactive Lymphocytes 3 % (0-10)
[2022-10-04] MEDS ORDERED: Furosemide 40 MG/4 ML VIAL SLOW IVP SCH (06:00)
[2022-10-04] MEDS ORDERED: Electrolyte Replacement Protocol FS PRN (07:00)
[2022-10-04] MEDS ORDERED: Potassium Chloride 20 MEQ TAB PO SCH ×2 (07:00→08:00)
[2022-10-04] MEDS ORDERED: Magnesium 2 GM/50 ML(in water) 2 GM in Premix Bag 1 BAG IVPB SCH ×2 (07:00→08:00)
[2022-10-04] MEDS: Carvedilol 6.25 MG TAB PO SCH ×2 (08:33→17:18)
[2022-10-04] MEDS: Citalopram 20 MG TAB PO SCH (08:34)
[2022-10-04] MEDS: Aspirin Chewable 81 MG TAB PO SCH (08:34)
[2022-10-04] MEDS ORDERED: HumuLIN 70/30 (300 UNITS/3 ML VIAL) SC SCH (09:00)
[2022-10-04] MEDS ORDERED: Communication Order-Pharmacy FS SCH (16:15)
[2022-10-04] MEDS: Atorvastatin Calcium 40 MG TAB PO SCH (20:51)
[2022-10-04] MEDS: hydrOXYzine Pamoate 25 mg Capsule PO SCH (20:52)
[2022-10-04] MEDS: risperiDONE 1 MG TAB PO SCH (20:52)
[2022-10-05 05:04] LABS: #Eosinphils 0.2 thou/uL (0.0-0.7); #Monocytes 0.7 thou/uL (0.11-0.59); #Neutrophils 3.1 thou/uL (1.40-6.50); %Basophils 0.8 % (0.0-1.0); %Eosinophils 3.8 % (0.0-10.0); %Lymphocytes 33.2 % (21.0-51.0); %Neutrophils 50.3 % (42.0-75.0); Hemoglobin 12.2 g/dL (14.0-18.0); Mean Corpuscular HGB CONC 31.3 g/dL (32.0-36.0); Mean Corpuscular Hemoglobin 26.5 pg (27.0-31.0); Mean Corpuscular Volume 84.7 fl (78.0-98.0); Mean Platelet Volume 10.3 fL (7.4-10.4); Platelet Count 213 10x3/uL (130-400); RBC Distribution Width 15.7 % (11.5-14.5); Red Blood Cell (RBC) Count 4.59 mill/uL (4.70-6.10); White Blood Cell (WBC) Count 6.1 10x3/uL (4.8-10.8)
[2022-10-05 05:25] LABS: Anion Gap 13 mmol/L (10-20); BUN (Urea Nitrogen) 13 mg/dL (8.4-25.7); Calc. Creatinine Clearance 109 mL/min (70-130); Calcium 9.2 mg/dL (7.8-10.44); Carbon Dioxide 26 mmol/L (23-31); Chloride 103 mmol/L (98-107); Estimated GFR 83; Glucose 136 mg/dL (80-115); Potassium 3.5 mmol/L (3.5-5.1); Sodium 138 mmol/L (136-145)
[2022-10-05] MEDS: Furosemide 40 MG TAB PO SCH (07:39)
[2022-10-05] MEDS ORDERED: Magnesium 2 GM/50 ML(in water) 2 GM in Premix Bag 1 BAG IVPB SCH (08:00)
[2022-10-05] MEDS ORDERED: Potassium Chloride 20 MEQ TAB PO SCH (08:00)
[2022-10-05] MEDS: Carvedilol 6.25 MG TAB PO SCH ×2 (08:06→16:54)
[2022-10-05] MEDS: Aspirin Chewable 81 MG TAB PO SCH (09:05)
[2022-10-05] MEDS: Citalopram 20 MG TAB PO SCH (09:05)
[2022-10-05] MEDS: Lisinopril 5 MG TAB PO SCH ×2 (09:05→20:20)
[2022-10-05] MEDS: HumaLOG 300 UNITS/3 ML VIAL SC PRN (10:40)
[2022-10-05] MEDS ORDERED: Isosorbide Dinitrate 5 MG TAB PO SCH (14:00)
[2022-10-05] MEDS ORDERED: hydrALAZINE 25 MG TAB PO SCH (14:00)
[2022-10-05] MEDS: Atorvastatin Calcium 40 MG TAB PO SCH (20:20)
[2022-10-05] MEDS: hydrOXYzine Pamoate 25 mg Capsule PO SCH (20:20)
[2022-10-05] MEDS: Acetaminophen 325 MG TAB PO PRN (20:20)
[2022-10-05] MEDS: Isosorbide Dinitrate 5 MG TAB PO SCH (20:20)
[2022-10-05] MEDS: hydrALAZINE 25 MG TAB PO SCH (20:20)
[2022-10-05] MEDS: risperiDONE 1 MG TAB PO SCH (20:20)
[2022-10-06] MEDS: Furosemide 40 MG TAB PO SCH (07:31)
[2022-10-06] MEDS: Carvedilol 6.25 MG TAB PO SCH ×2 (08:04→17:20)
[2022-10-06 08:20] LABS: Anion Gap 13 mmol/L (10-20); BUN (Urea Nitrogen) 12 mg/dL (8.4-25.7); Calc. Creatinine Clearance 111 mL/min (70-130); Calcium 8.5 mg/dL (7.8-10.44); Carbon Dioxide 24 mmol/L (23-31); Chloride 104 mmol/L (98-107); Estimated GFR 86; Glucose 119 mg/dL (80-115); Potassium 3.8 mmol/L (3.5-5.1); Sodium 137 mmol/L (136-145)
[2022-10-06 08:22] LABS: Hemoglobin 11.7 g/dL (14.0-18.0); Mean Corpuscular HGB CONC 30.8 g/dL (32.0-36.0); Mean Corpuscular Hemoglobin 26.3 pg (27.0-31.0); Mean Corpuscular Volume 85.3 fl (78.0-98.0); Platelet Count 210 10x3/uL (130-400); RBC Distribution Width 15.6 % (11.5-14.5); Red Blood Cell (RBC) Count 4.46 mill/uL (4.70-6.10); White Blood Cell (WBC) Count 4.9 10x3/uL (4.8-10.8)
[2022-10-06] MEDS: Aspirin Chewable 81 MG TAB PO SCH (08:40)
[2022-10-06] MEDS: hydrALAZINE 25 MG TAB PO SCH ×2 (08:40→20:21)
[2022-10-06] MEDS: Isosorbide Dinitrate 5 MG TAB PO SCH ×2 (08:40→20:22)
[2022-10-06] MEDS: Citalopram 20 MG TAB PO SCH (08:40)
[2022-10-06] MEDS: Lisinopril 5 MG TAB PO SCH ×2 (08:40→20:21)
[2022-10-06 11:14] LABS: Anisocytosis SLIGHT = 6-15 cells (100X) (0-5/hpf); Eosinophils 2 % (0-10); Lymphocytes 38 % (21-51); MDiff Complete? YES; Monocytes 8 % (0-10); Neutrophil 52 % (42-75); Platelet Morphology Comment Appears Adequate; Polychromasia SLIGHT = 2-3 cells (100X) (0-2/hpf); Vacuoles SLIGHT
[2022-10-06] MEDS: HumaLOG 300 UNITS/3 ML VIAL SC PRN (11:20)
[2022-10-06] MEDS ORDERED: FLU VACC QS2022-23(6MOS UP)/PF 60 MCG/0.5 ML SYRINGE IM ONE (16:45)
[2022-10-06] MEDS: Atorvastatin Calcium 40 MG TAB PO SCH (20:22)
[2022-10-06] MEDS: risperiDONE 1 MG TAB PO SCH (20:22)
[2022-10-06] MEDS: hydrOXYzine Pamoate 25 mg Capsule PO SCH (20:59)
[2022-10-07 05:26] LABS: Anion Gap 13 mmol/L (10-20); BUN (Urea Nitrogen) 15 mg/dL (8.4-25.7); Calc. Creatinine Clearance 107 mL/min (70-130); Calcium 8.7 mg/dL (7.8-10.44); Carbon Dioxide 25 mmol/L (23-31); Chloride 105 mmol/L (98-107); Estimated GFR 82; Glucose 105 mg/dL (80-115); Potassium 3.6 mmol/L (3.5-5.1); Sodium 139 mmol/L (136-145)
[2022-10-07] MEDS: hydrALAZINE 25 MG TAB PO SCH (05:47)
[2022-10-07] MEDS: Aspirin Chewable 81 MG TAB PO SCH (05:47)
[2022-10-07] MEDS: Carvedilol 6.25 MG TAB PO SCH ×2 (05:48→18:15)
[2022-10-07] MEDS: Citalopram 20 MG TAB PO SCH (05:48)
[2022-10-07] MEDS: Lisinopril 5 MG TAB PO SCH (05:48)
[2022-10-07] MEDS: Isosorbide Dinitrate 5 MG TAB PO SCH (05:48)
[2022-10-07] MEDS ORDERED: Sodium Chloride 0.9% 1,000 ML IV SCH ×2 (06:00→07:49)
[2022-10-07 06:02] LABS: Hemoglobin 11.6 g/dL (14.0-18.0); Mean Corpuscular HGB CONC 31.4 g/dL (32.0-36.0); Mean Corpuscular Hemoglobin 26.9 pg (27.0-31.0); Mean Corpuscular Volume 85.7 fl (78.0-98.0); Mean Platelet Volume 10.3 fL (7.4-10.4); Platelet Count 201 10x3/uL (130-400); RBC Distribution Width 15.6 % (11.5-14.5); Red Blood Cell (RBC) Count 4.32 mill/uL (4.70-6.10)
[2022-10-07 06:03] LABS: Anisocytosis SLIGHT = 6-15 cells (100X) (0-5/hpf); Eosinophils 5 % (0-10); Hypochromia SLIGHT = 6-15 cells (100X) (0-5/hpf); Lymphocytes 36 % (21-51); MDiff Complete? YES; Monocytes 9 % (0-10); Neutrophil 50 % (42-75); Platelet Morphology Comment Appears Adequate; Polychromasia SLIGHT = 2-3 cells (100X) (0-2/hpf)
[2022-10-07] MEDS ORDERED: Adenosine 6 MG/2 ML VIAL ONE (06:23)
[2022-10-07] MEDS ORDERED: Lidocaine 1% (PF) 30 ML VIAL ONE (06:23)
[2022-10-07] MEDS ORDERED: Nitroglycerin 100MG/250ML BOT 0 ML ONE (06:23)
[2022-10-07] MEDS ORDERED: Heparin 10,000 UNITS/ 10 ML VIAL ONE (06:23)
[2022-10-07] MEDS ORDERED: Midazolam HCl 2 mg/2 ml Vial ONE (07:00)
[2022-10-07] MEDS ORDERED: FENTANYL 50 MCG/ML 1 ML VIAL ONE (07:01)
[2022-10-07] MEDS ORDERED: Protamine Sulfate 50 MG/5 ML VIAL ONE (07:32)
[2022-10-07] MEDS ORDERED: Sodium Chloride 0.9% 200 ML IV PRN (07:48)
[2022-10-07] MEDS ORDERED: Acetaminophen/Codeine 30-300mg Tablet PO PRN ×2 (07:48)
[2022-10-07] MEDS ORDERED: Nitroglycerin 0.4 MG TAB (25 Tab Bottle) SL PRN (07:48)
[2022-10-07] MEDS ORDERED: Lisinopril 10 MG TAB PO SCH (09:00)
[2022-10-07] MEDS: Furosemide 40 MG TAB PO SCH (09:55)
[2022-10-07 11:16] LABS: Cardiac Risk 3.7 (Less than 4.5)
[2022-10-07 16:20] LABS: Amphetamine Not Detected (NotDetected); Barbiturates Screen Not Detected (NotDetected); Benzodiazepine Screen Not Detected (NotDetected); Cocaine Metabolite Screen Not Detected (NotDetected); Methadone Not Detected (NotDetected); Methamphetamine Not Detected (NotDetected); Opiate Screen Not Detected (NotDetected); Oxycodone Screen Not Detected (NotDetected); Phencyclidine (PCP) Not Detected (NotDetected); THC/Cannabinoid Screen Not Detected (NotDetected); Tricyclic Screen Not Detected (NotDetected)
[2022-10-07 18:02] VITALS: TEMP 98.6
[2022-10-07 18:15] VITALS: BP 131/70
[2022-10-08] MEDS ORDERED: metFORMIN 500 MG TAB PO SCH (09:00)
== END 2022-10-07 18:20 | disposition home or self-care (01) | DRG 287 ==
LOC: ERS 09:35 → ERHOLD 12:22 → 2SW 15:43 → OBSVTOIN 10-04 16:36
PROVIDERS: ADMIT Family Medicine; ATTEND Family Medicine
PROC: 4A023N7 Measurement of Cardiac Sampling and Pressure, Left Heart, Percutaneous Approach (ICD-10-PCS; principal; 2022-10-07)
PROC: B2111ZZ Fluoroscopy of Multiple Coronary Arteries using Low Osmolar Contrast (ICD-10-PCS; 2022-10-07)
PROC: B2151ZZ Fluoroscopy of Left Heart using Low Osmolar Contrast (ICD-10-PCS; 2022-10-07)
DX: I50.33 Acute on chronic diastolic (congestive) heart failure (principal); I42.0 Dilated cardiomyopathy; E11.9 Type 2 diabetes mellitus without complications; E78.5 Hyperlipidemia, unspecified; J45.909 Unspecified asthma, uncomplicated; K21.9 Gastro-esophageal reflux disease without esophagitis; F20.9 Schizophrenia, unspecified; I44.7 Left bundle-branch block, unspecified; D64.9 Anemia, unspecified; I10 Essential (primary) hypertension; E83.42 Hypomagnesemia; E87.6 Hypokalemia; Z86.16 Personal history of COVID-19; Z79.51 Long term (current) use of inhaled steroids; Z79.4 Long term (current) use of insulin; Z98.42 Cataract extraction status, left eye; Z79.899 Other long term (current) drug therapy; Z79.84 Long term (current) use of oral hypoglycemic drugs; Z79.82 Long term (current) use of aspirin; Z87.891 Personal history of nicotine dependence; Z86.711 Personal history of pulmonary embolism; Z87.01 Personal history of pneumonia (recurrent)
CPT/HCPCS: 36415; 36416; 71045; 80048; 80053; 80061; 80306; 83036; 83540; 83550; 83735; 83880; 84484; 85025; 85347; 93005; 93306; 93458; 93798; 96372; 96374; 96375; 96376; 99152; C1769; G0378; J0153; J1644; J1650; J1815; J1940; J2001; J2250; J2720; J3010; J3475; J7050; Q0177; U0002

== ENCOUNTER 2022-10-24 07:54 | Emergency (ER) | payer OTHER | END 2022-10-24 10:06 | disposition home or self-care (01) | LOC: ERS 07:54 | DX: J04.0 Acute laryngitis (principal); E11.9 Type 2 diabetes mellitus without complications; E78.5 Hyperlipidemia, unspecified; I11.0 Hypertensive heart disease with heart failure; I50.9 Heart failure, unspecified; Z79.899 Other long term (current) drug therapy; Z79.82 Long term (current) use of aspirin; Z79.84 Long term (current) use of oral hypoglycemic drugs; Z20.822 Contact with and (suspected) exposure to COVID-19 | CPT/HCPCS: 36416; 71045; U0003; U0005 ==

== ENCOUNTER 2022-11-22 10:08 | Emergency (ER) | payer OTHER | END 2022-11-22 15:41 | disposition short-term general hospital (02) | LOC: ERS 10:08 | DX: R42 Dizziness and giddiness (principal); E11.9 Type 2 diabetes mellitus without complications; E78.5 Hyperlipidemia, unspecified; I11.0 Hypertensive heart disease with heart failure; I50.9 Heart failure, unspecified; Z79.899 Other long term (current) drug therapy; Z79.84 Long term (current) use of oral hypoglycemic drugs; Z79.82 Long term (current) use of aspirin | CPT/HCPCS: 36416; 99284 ==

== ENCOUNTER 2023-03-31 19:17 | Emergency (ER) | payer OTHER ==
[2023-03-31] MEDS ORDERED: TETANUS, DIPHTHERIA TOX,ADULT (TDVAX) 0.5 ML VIAL IM ONE (20:41)
[2023-03-31] MEDS ORDERED: Boostrix 0.5 ML (Tdap) VIAL (>/=7 yrs of age) ONE (20:51)
== END 2023-03-31 21:20 | disposition home or self-care (01) ==
LOC: ERS 19:17
DX: S80.261A Insect bite (nonvenomous), right knee, initial encounter (principal); E11.9 Type 2 diabetes mellitus without complications; E78.5 Hyperlipidemia, unspecified; I11.0 Hypertensive heart disease with heart failure; I50.9 Heart failure, unspecified; W57.XXXA Bitten or stung by nonvenomous insect and other nonvenomous arthropods, initial encounter; Z23 Encounter for immunization; Z79.82 Long term (current) use of aspirin; Z79.899 Other long term (current) drug therapy; Z79.84 Long term (current) use of oral hypoglycemic drugs
CPT/HCPCS: 90471; 90714; 90715

== ENCOUNTER 2023-04-27 09:18 | Emergency (ER) | payer BC, SELFPAY ==
[2023-04-27] MEDS ORDERED: Iopamidol-370 76% 500 ML MDV (1 ML CHARGE) ONE (10:09)
[2023-04-27] MEDS ORDERED: Dicyclomine 20 MG TAB ONE ×2 (10:15→10:16)
[2023-04-27] MEDS ORDERED: Ondansetron PF 4 MG/2 ML Vial ONE (10:27)
[2023-04-27 10:41] LABS: #Eosinphils 0.1 thou/uL (0.0-0.7); #Monocytes 0.4 thou/uL (0.11-0.59); #Neutrophils 3.2 thou/uL (1.40-6.50); %Basophils 0.7 % (0.0-1.0); %Eosinophils 2.2 % (0.0-10.0); %Lymphocytes 31.1 % (21.0-51.0); %Monocytes 7.1 % (0.0-10.0); %Neutrophils 58.7 % (42.0-75.0); Hemoglobin 13.5 g/dL (14.0-18.0); Mean Corpuscular HGB CONC 30.7 g/dL (32.0-36.0); Mean Corpuscular Hemoglobin 25.6 pg (27.0-31.0); Mean Corpuscular Volume 83.3 fl (78.0-98.0); Platelet Count 230 10x3/uL (130-400); RBC Distribution Width 16.6 % (11.5-14.5); Red Blood Cell (RBC) Count 5.28 mill/uL (4.70-6.10); White Blood Cell (WBC) Count 5.5 10x3/uL (4.8-10.8)
[2023-04-27 11:04] LABS: Albumin 4.1 g/dL (3.4-4.8); Alkaline Phosphatase 86 U/L (40-110); Anion Gap 16 mmol/L (10-20); BUN (Urea Nitrogen) 10 mg/dL (8.4-25.7); Bilirubin, Total 0.6 mg/dL (0.2-1.2); Calc. Creatinine Clearance 0 mL/min (70-130); Calcium 8.7 mg/dL (7.8-10.44); Carbon Dioxide 26 mmol/L (23-31); Chloride 100 mmol/L (98-107); Estimated GFR 70; Globulin 3.5 g/dL (2.4-3.5); Glucose 140 mg/dL (80-115); Potassium 3.3 mmol/L (3.5-5.1); Protein, Total 7.6 g/dL (5.8-8.1); Sodium 139 mmol/L (136-145)
[2023-04-27 11:05] LABS: ALT (SGPT) 16 U/L (8-55); AST (SGOT) 22 U/L (5-34); Lipase 36 U/L (8-78)
== END 2023-04-27 12:50 | disposition home or self-care (01) ==
LOC: ERS 09:18
DX: K57.92 Diverticulitis of intestine, part unspecified, without perforation or abscess without bleeding (principal); K52.9 Noninfective gastroenteritis and colitis, unspecified; I11.0 Hypertensive heart disease with heart failure; I50.9 Heart failure, unspecified; E11.9 Type 2 diabetes mellitus without complications; E78.5 Hyperlipidemia, unspecified; Z79.84 Long term (current) use of oral hypoglycemic drugs; Z79.899 Other long term (current) drug therapy; Z79.82 Long term (current) use of aspirin
CPT/HCPCS: 36415; 74177; 80053; 83690; 85025; 96374; J2405; Q9967

== ENCOUNTER 2023-05-20 13:54 | Emergency (ER) | payer BC, SELFPAY ==
[2023-05-20] MEDS ORDERED: Ibuprofen 800 MG TAB ONE (15:36)
== END 2023-05-20 17:03 | disposition home or self-care (01) ==
LOC: ERS 13:54
DX: J02.9 Acute pharyngitis, unspecified (principal); B34.9 Viral infection, unspecified; E11.9 Type 2 diabetes mellitus without complications; E78.5 Hyperlipidemia, unspecified; I11.0 Hypertensive heart disease with heart failure; I50.9 Heart failure, unspecified; Z79.84 Long term (current) use of oral hypoglycemic drugs; Z79.899 Other long term (current) drug therapy; Z79.82 Long term (current) use of aspirin
CPT/HCPCS: 87081; 87430; 99283

== ENCOUNTER 2023-08-11 08:06 | Emergency (ER) | payer OTHER ==
[2023-08-11 08:56] LABS: #Monocytes 0.4 thou/uL (0.11-0.59); #Neutrophils 6.4 thou/uL (1.40-6.50); %Basophils 0.1 % (0.0-1.0); %Eosinophils 0.5 % (0.0-10.0); %Lymphocytes 7.9 % (21.0-51.0); %Monocytes 5.6 % (0.0-10.0); %Neutrophils 85.6 % (42.0-75.0); Hematocrit 41.6 % (42.0-52.0); Hemoglobin 12.9 g/dL (14.0-18.0); Mean Corpuscular Volume 83.7 fl (78.0-98.0); Mean Platelet Volume 10.4 fL (7.4-10.4); Platelet Count 266 10x3/uL (130-400); RBC Distribution Width 15.8 % (11.5-14.5); Red Blood Cell (RBC) Count 4.97 mill/uL (4.70-6.10); White Blood Cell (WBC) Count 7.5 10x3/uL (4.8-10.8)
[2023-08-11 09:19] LABS: ALT (SGPT) 19 U/L (8-55); AST (SGOT) 21 U/L (5-34); Albumin 3.8 g/dL (3.4-4.8); Alkaline Phosphatase 68 U/L (40-110); Anion Gap 14 mmol/L (10-20); BUN (Urea Nitrogen) 8 mg/dL (8.4-25.7); Bilirubin, Total 0.7 mg/dL (0.2-1.2); Calc. Creatinine Clearance 0 mL/min (70-130); Calcium 8.5 mg/dL (7.8-10.44); Carbon Dioxide 20 mmol/L (23-31); Chloride 104 mmol/L (98-107); Estimated GFR 78; Globulin 3.3 g/dL (2.4-3.5); Glucose 155 mg/dL (80-115); Lipase 25 U/L (8-78); Potassium 3.3 mmol/L (3.5-5.1); Protein, Total 7.1 g/dL (5.8-8.1); Sodium 135 mmol/L (136-145)
[2023-08-11] MEDS ORDERED: Famotidine 20 MG TAB ONE (09:35)
[2023-08-11] MEDS ORDERED: Ondansetron ODT 4 MG TAB ONE (09:35)
[2023-08-11] MEDS ORDERED: Dicyclomine 20 MG/2 ML VIAL ONE (09:36)
[2023-08-11] MEDS ORDERED: Potassium Chloride 20 MEQ TAB ONE (09:51)
== END 2023-08-11 10:23 | disposition home or self-care (01) ==
LOC: ERS 08:06
DX: R19.7 Diarrhea, unspecified (principal); D64.9 Anemia, unspecified; E87.6 Hypokalemia; K21.9 Gastro-esophageal reflux disease without esophagitis; E11.9 Type 2 diabetes mellitus without complications; E78.5 Hyperlipidemia, unspecified; I11.0 Hypertensive heart disease with heart failure; I50.9 Heart failure, unspecified; Z79.899 Other long term (current) drug therapy; Z79.4 Long term (current) use of insulin; Z79.84 Long term (current) use of oral hypoglycemic drugs
CPT/HCPCS: 36415; 80053; 83690; 85025; 96372; 99284; Q0162

== ENCOUNTER 2023-09-11 11:28 | Emergency (ER) | payer OTHER, SELFPAY ==
[2023-09-11 12:08] LABS: Hemoglobin 12.6 g/dL (14.0-18.0); Manual Diff?? YES; Mean Corpuscular HGB CONC 30.7 g/dL (32.0-36.0); Mean Corpuscular Hemoglobin 25.9 pg (27.0-31.0); Mean Corpuscular Volume 84.4 fl (78.0-98.0); Mean Platelet Volume 11.3 fL (7.4-10.4); Platelet Count 252 10x3/uL (130-400); RBC Distribution Width 15.6 % (11.5-14.5); Red Blood Cell (RBC) Count 4.86 mill/uL (4.70-6.10); White Blood Cell (WBC) Count 5.6 10x3/uL (4.8-10.8)
[2023-09-11 12:13] LABS: Delete Auto Diff?? YES
[2023-09-11 12:27] LABS: ALT (SGPT) 20 U/L (8-55); AST (SGOT) 18 U/L (5-34); Albumin 3.9 g/dL (3.4-4.8); Alkaline Phosphatase 84 U/L (40-110); Anion Gap 14 mmol/L (10-20); BUN (Urea Nitrogen) 5 mg/dL (8.4-25.7); Bilirubin, Total 0.5 mg/dL (0.2-1.2); Calc. Creatinine Clearance 0 mL/min (70-130); Calcium 8.4 mg/dL (7.8-10.44); Carbon Dioxide 27 mmol/L (23-31); Chloride 101 mmol/L (98-107); Estimated GFR 88; Globulin 2.9 g/dL (2.4-3.5); Glucose 197 mg/dL (80-115); Lipase 41 U/L (8-78); Potassium 2.9 mmol/L (3.5-5.1); Protein, Total 6.8 g/dL (5.8-8.1); Sodium 139 mmol/L (136-145)
[2023-09-11 12:29] LABS: Troponin I 0.015 ng/mL (< 0.028)
[2023-09-11] MEDS ORDERED: Aspirin Chewable 81 MG TAB ONE (12:32)
[2023-09-11] MEDS ORDERED: Potassium Chloride 20 MEQ TAB ONE (12:32)
[2023-09-11 12:43] LABS: Band 1 % (5-11); Burr Cells MODERATE= 6-15 cells HPF (0-1); CellaVision Operator ID LAB.KW3; Eosinophils 1 % (0-10); Large Platelets 6.1 % (0-5); Lymphocytes 27 % (21-51); Monocytes 4 % (0-10); Neutrophil 64 % (42-75); Platelet Adequacy Comment Platelets Normal; Poikilocytosis SLIGHT = 6-15 cells HPF (0-5); Polychromasia SLIGHT = 2-3 cells HPF (0-2); Reactive Lymphocytes 1 % (0-10); Total Cell Count 98
== END 2023-09-11 14:04 | disposition home or self-care (01) ==
LOC: ERS 11:28
DX: E87.6 Hypokalemia (principal); R07.9 Chest pain, unspecified; I10 Essential (primary) hypertension; I11.0 Hypertensive heart disease with heart failure; I50.9 Heart failure, unspecified; E11.9 Type 2 diabetes mellitus without complications; K21.9 Gastro-esophageal reflux disease without esophagitis; E78.5 Hyperlipidemia, unspecified; Z79.84 Long term (current) use of oral hypoglycemic drugs; Z79.4 Long term (current) use of insulin; Z79.899 Other long term (current) drug therapy
CPT/HCPCS: 36415; 71045; 80053; 83690; 83880; 84484; 85025; 93005

== ENCOUNTER 2024-02-24 10:42 | Emergency (ER) | payer OTHER ==
[2024-02-24] MEDS ORDERED: Ondansetron PF 4 MG/2 ML Vial ONE (11:46)
[2024-02-24] MEDS ORDERED: Dicyclomine 20 MG/2 ML VIAL ONE (11:49)
[2024-02-24] MEDS ORDERED: Iopamidol-370 76% 500 ML MDV (1 ML CHARGE) ONE (12:29)
[2024-02-24 12:30] LABS: #Basophils Less than 0.03 10x3/uL (0.0-0.2); %Basophils 0.3 % (0.0-1.0); %Eosinophils 2.4 % (0.0-10.0); %Lymphocytes 28.5 % (21.0-51.0); %Monocytes 8.3 % (0.0-10.0); %Neutrophils 60.2 % (42.0-75.0); Hematocrit 43.7 % (42.0-52.0); Hemoglobin 13.1 g/dL (14.0-18.0); Mean Corpuscular Hemoglobin 24.4 pg (27.0-31.0); Mean Corpuscular Volume 81.5 fL (78.0-98.0); Mean Platelet Volume 10.4 fL (7.4-10.4); Platelet Count 272 10x3/uL (130-400); RBC Distribution Width 16.5 % (11.5-14.5); Red Blood Cell (RBC) Count 5.36 mill/uL (4.70-6.10)
[2024-02-24 12:50] LABS: ALT (SGPT) 23 U/L (8-55); AST (SGOT) 21 U/L (5-34); Alkaline Phosphatase 106 U/L (40-110); Anion Gap 17 mmol/L (10-20); BUN (Urea Nitrogen) 15 mg/dL (8.4-25.7); Bilirubin, Total 0.6 mg/dL (0.2-1.2); Calc. Creatinine Clearance 0 mL/min (70-130); Calcium 9.1 mg/dL (7.8-10.44); Carbon Dioxide 17 mmol/L (23-31); Chloride 108 mmol/L (98-107); Estimated GFR 58; Globulin 3.5 g/dL (2.4-3.5); Glucose 175 mg/dL (80-115); Lipase 57 U/L (8-78); Potassium 4.5 mmol/L (3.5-5.1); Protein, Total 7.5 g/dL (5.8-8.1); Sodium 137 mmol/L (136-145)
[2024-02-24] MEDS ORDERED: Lidocaine 2% Viscous 10 mL, Alum & Magn 30 mL SSW SCH (13:00)
[2024-02-24 15:41] LABS: Lactic Acid 2.6 mmol/L (0.5-2.2)
== END 2024-02-24 16:31 | disposition home or self-care (01) ==
LOC: ERS 10:42
DX: R10.10 Upper abdominal pain, unspecified (principal); E11.9 Type 2 diabetes mellitus without complications; E78.5 Hyperlipidemia, unspecified; I11.0 Hypertensive heart disease with heart failure; I50.9 Heart failure, unspecified; Z79.84 Long term (current) use of oral hypoglycemic drugs; Z79.4 Long term (current) use of insulin; Z79.899 Other long term (current) drug therapy; Z79.82 Long term (current) use of aspirin
CPT/HCPCS: 36415; 71045; 74177; 80053; 83605; 83690; 84484; 85025; 93005; 96372; 96374; J2405; Q9967

== ENCOUNTER 2024-04-16 20:24 | Inpatient (IN) | payer OTHER ==
[2024-04-16 21:42] LABS: #Basophils 0.03 10x3/uL (0.0-0.2); %Basophils 0.4 % (0.0-1.0); %Eosinophils 2.2 % (0.0-10.0); %Lymphocytes 34.6 % (21.0-51.0); %Monocytes 7.9 % (0.0-10.0); %Neutrophils 54.6 % (42.0-75.0); Hematocrit 38.6 % (42.0-52.0); Hemoglobin 11.5 g/dL (14.0-18.0); Mean Corpuscular HGB CONC 29.8 g/dL (32.0-36.0); Mean Corpuscular Hemoglobin 24.6 pg (27.0-31.0); Mean Corpuscular Volume 82.7 fL (78.0-98.0); Mean Platelet Volume 10.2 fL (7.4-10.4); Platelet Count 315 10x3/uL (130-400); RBC Distribution Width 16.5 % (11.5-14.5); Red Blood Cell (RBC) Count 4.67 mill/uL (4.70-6.10)
[2024-04-16 21:57] LABS: ALT (SGPT) 21 U/L (8-55); AST (SGOT) 19 U/L (5-34); Albumin 3.6 g/dL (3.4-4.8); Alkaline Phosphatase 97 U/L (40-110); Anion Gap 15 mmol/L (10-20); BUN (Urea Nitrogen) 9 mg/dL (8.4-25.7); Bilirubin, Total 0.6 mg/dL (0.2-1.2); Calc. Creatinine Clearance 0 mL/min (70-130); Carbon Dioxide 20 mmol/L (23-31); Chloride 104 mmol/L (98-107); Estimated GFR 85; Glucose 202 mg/dL (80-115); Magnesium 1.6 mg/dL (1.6-2.6); Protein, Total 6.6 g/dL (5.8-8.1); Sodium 136 mmol/L (136-145)
[2024-04-16 22:01] LABS: Troponin I Less than 0.010 ng/mL (< 0.028)
[2024-04-16] MEDS ORDERED: Nitroglycerin 0.4 MG TAB (25 Tab Bottle) SL PRN (23:14)
[2024-04-16] MEDS ORDERED: Ondansetron ODT 4 MG TAB PO PRN (23:14)
[2024-04-16] MEDS ORDERED: Ondansetron PF 4 MG/2 ML Vial IVP PRN (23:14)
[2024-04-16] MEDS ORDERED: Acetaminophen 650 MG Suppository PR PRN (23:14)
[2024-04-16] MEDS ORDERED: Aspirin Chewable 81 MG TAB ONE (23:22)
[2024-04-16] MEDS ORDERED: Nitroglycerin 2% Ointment 1 INCH/1 GM Packet ONE ×2 (23:22→23:23)
[2024-04-16 23:30] LABS: Influenza A by NAA Not Detected (NotDetected); Influenza B by NAA Not Detected (NotDetected); SARS-CoV-2 NAA Rapid Test Not Detected (NotDetected)
[2024-04-16] MEDS ORDERED: Electrolyte Replacement Protocol 1 EACH FS SCH (23:30)
[2024-04-16] MEDS ORDERED: Potassium Chloride 20 MEQ TAB ONE (23:31)
[2024-04-17] MEDS: Potassium Chloride 20 MEQ TAB PO SCH ×3 (00:31→13:46)
[2024-04-17 00:36] VITALS: BMI 37.3
[2024-04-17] MEDS: Magnesium 2 GM/50 ML(in water) 2 GM in Premix 1 BAG IVPB SCH (01:03)
[2024-04-17] MEDS ORDERED: Dextrose 50% Abboject 50 ML SYRINGE SLOW IVP PRN (01:09)
[2024-04-17] MEDS ORDERED: Insulin Lispro 100 UNIT/ML 10 ML VIAL SC PRN (01:09)
[2024-04-17] MEDS ORDERED: Glucagon 1 MG/ML KIT IM PRN (01:09)
[2024-04-17] MEDS ORDERED: Dextrose 5% in Water 1,000 ML IV PRN (01:09)
[2024-04-17 02:56] LABS: Amphetamine Not Detected (NotDetected); Barbiturates Screen Not Detected (NotDetected); Benzodiazepine Screen Not Detected (NotDetected); Cocaine Metabolite Screen Not Detected (NotDetected); Methadone Not Detected (NotDetected); Methamphetamine Not Detected (NotDetected); Opiate Screen Not Detected (NotDetected); Oxycodone Screen Not Detected (NotDetected); Phencyclidine (PCP) Not Detected (NotDetected); THC/Cannabinoid Screen Not Detected (NotDetected); Tricyclic Screen Not Detected (NotDetected)
[2024-04-17 03:54] LABS: #Basophils Less than 0.03 10x3/uL (0.0-0.2); %Basophils 0.3 % (0.0-1.0); %Eosinophils 2.9 % (0.0-10.0); %Lymphocytes 38.3 % (21.0-51.0); %Monocytes 9.3 % (0.0-10.0); Hematocrit 36.7 % (42.0-52.0); Mean Corpuscular Hemoglobin 24.5 pg (27.0-31.0); Mean Corpuscular Volume 81.7 fL (78.0-98.0); Mean Platelet Volume 9.9 fL (7.4-10.4); Platelet Count 294 10x3/uL (130-400); RBC Distribution Width 16.2 % (11.5-14.5); Red Blood Cell (RBC) Count 4.49 mill/uL (4.70-6.10)
[2024-04-17 04:12] LABS: Hemoglobin A1c 7.9 % (4.0-6.0)
[2024-04-17 04:13] LABS: Anion Gap 12 mmol/L (10-20); BUN (Urea Nitrogen) 9 mg/dL (8.4-25.7); Calc. Creatinine Clearance 128 mL/min (70-130); Calcium 8.9 mg/dL (7.8-10.44); Carbon Dioxide 24 mmol/L (23-31); Chloride 105 mmol/L (98-107); Estimated GFR 98; Glucose 164 mg/dL (80-115); Magnesium 2.4 mg/dL (1.6-2.6); Potassium 3.1 mmol/L (3.5-5.1); Sodium 138 mmol/L (136-145)
[2024-04-17 04:17] LABS: Troponin I 0.011 ng/mL (< 0.028)
[2024-04-17] MEDS: hydrALAZINE 25 MG TAB PO SCH (08:52)
[2024-04-17] MEDS: Famotidine 20 MG TAB PO SCH (08:53)
[2024-04-17] MEDS: Furosemide 40 MG TAB PO SCH (08:53)
[2024-04-17] MEDS: Pantoprazole DR 40 MG TAB PO SCH (08:53)
[2024-04-17] MEDS: Atorvastatin Calcium 40 MG TAB PO SCH (08:53)
[2024-04-17] MEDS: Aspirin Chewable 81 MG TAB PO SCH (08:53)
[2024-04-17] MEDS: metFORMIN 500 MG TAB PO SCH (08:53)
[2024-04-17] MEDS: Lisinopril 10 MG TAB PO SCH (08:53)
[2024-04-17] MEDS: Citalopram 20 MG TAB PO SCH (08:54)
[2024-04-17] MEDS: Enoxaparin 40 MG (0.4 mL) SYRINGE SC SCH (08:54)
[2024-04-17] MEDS: Famotidine/PF 20 mg/2ml Vial SLOW IVP SCH (10:45)
[2024-04-17 12:54] LABS: Potassium 3.5 mmol/L (3.5-5.1)
[2024-04-17] MEDS: Insulin Lispro 100 UNIT/ML 10 ML VIAL SC PRN (13:44)
[2024-04-17] MEDS: Acetaminophen 325 MG TAB PO PRN (13:51)
[2024-04-17 18:25] LABS: Potassium 3.8 mmol/L (3.5-5.1)
[2024-04-17] MEDS: Naproxen 500 MG TAB PO SCH (20:53)
[2024-04-17] MEDS: risperiDONE 1 MG TAB PO SCH (20:54)
[2024-04-17] MEDS: hydrOXYzine Pamoate 25 mg Capsule PO SCH (20:55)
[2024-04-19] MEDS ORDERED: Iopamidol 370 76% 100 ML VIAL ONE (12:52)
[2024-04-19] MEDS ORDERED: CEFAZOLIN 2 GM VIAL ONE ×2 (13:10→15:48)
[2024-04-19] MEDS ORDERED: Gentamicin 80 MG/2 ML VIAL ONE (13:10)
[2024-04-19] MEDS ORDERED: fentaNYL 50 mcg/mL 1 mL Vial ONE (15:03)
[2024-04-19] MEDS ORDERED: Phenylephrine 40 MG/NS 250 ML 250 ML ONE (15:03)
[2024-04-19] MEDS ORDERED: Midazolam HCl 2 mg/2 ml Vial ONE (15:03)
[2024-04-19] MEDS ORDERED: Propofol 1,000 MG/100 ML VIAL IV ONE (15:04)
[2024-04-19] MEDS ORDERED: Ketamine In 0.9 % NaCl 50 MG/5 ML SYRINGE ONE (15:04)
[2024-04-19] MEDS ORDERED: Acetaminophen 325 MG TAB PO PRN (17:24)
[2024-04-19] MEDS ORDERED: Acetaminophen/Codeine 30-300mg Tablet PO PRN (17:24)
[2024-04-19] MEDS ORDERED: Morphine Sulfate 2 MG/ML SYRINGE SLOW IVP PRN (17:46)
[2024-04-19] MEDS ORDERED: PACU-Morphine 4MG/ML VIAL SLOW IVP PRN (17:46)
[2024-04-19] MEDS ORDERED: Promethazine HCl 25 MG/ML VIAL IM PRN (17:46)
[2024-04-19] MEDS ORDERED: Ondansetron HCl/PF 4 MG/2 ML Vial IVP PRN (17:46)
[2024-04-19] MEDS ORDERED: HYDROmorphone 2 MG/ML VIAL SLOW IVP PRN (17:46)
[2024-04-19] MEDS: Empagliflozin 10 MG TAB PO SCH (20:26)
[2024-04-19] MEDS: Cephalexin 250 MG CAP PO SCH (20:27)
[2024-04-19] MEDS: Atorvastatin Calcium 40 MG TAB PO SCH (20:27)
[2024-04-19] MEDS: Carvedilol 6.25 MG TAB PO SCH (20:29)
[2024-04-20 04:19] LABS: Anion Gap 15 mmol/L (10-20); BUN (Urea Nitrogen) 14 mg/dL (8.4-25.7); Calc. Creatinine Clearance 111 mL/min (70-130); Calcium 8.5 mg/dL (7.8-10.44); Carbon Dioxide 23 mmol/L (23-31); Chloride 106 mmol/L (98-107); Estimated GFR 86; Glucose 110 mg/dL (80-115); Potassium 3.5 mmol/L (3.5-5.1); Sodium 140 mmol/L (136-145)
[2024-04-20] MEDS: Potassium Chloride 20 MEQ TAB PO SCH (09:01)
[2024-04-20 11:31] VITALS: BP 127/79; TEMP 98.7
[2024-04-20] MEDS ORDERED: Sacubitril 49 MG/Valsartan 51 MG TABLET PO SCH (21:00)
== END 2024-04-20 14:23 | disposition home or self-care (01) | DRG 982 ==
LOC: ERS 20:24 → 2SE 23:16 → OBSVTOIN 04-17 17:55
PROVIDERS: ADMIT Student in an Organized Health Care Education/Training Program; ATTEND Hospitalist
PROC: 0JH609Z Insertion of Cardiac Resynchronization Defibrillator Pulse Generator into Chest Subcutaneous Tissue and Fascia, Open Approach (ICD-10-PCS; principal; 2024-04-19)
PROC: 02HK3KZ Insertion of Defibrillator Lead into Right Ventricle, Percutaneous Approach (ICD-10-PCS; 2024-04-19)
PROC: 02HL3KZ Insertion of Defibrillator Lead into Left Ventricle, Percutaneous Approach (ICD-10-PCS; 2024-04-19)
DX: M94.0 Chondrocostal junction syndrome [Tietze] (principal); I42.8 Other cardiomyopathies; I50.22 Chronic systolic (congestive) heart failure; K21.9 Gastro-esophageal reflux disease without esophagitis; I44.7 Left bundle-branch block, unspecified; I11.0 Hypertensive heart disease with heart failure; E78.5 Hyperlipidemia, unspecified; E11.9 Type 2 diabetes mellitus without complications; F32.A Depression, unspecified; F20.9 Schizophrenia, unspecified; E87.6 Hypokalemia; E83.42 Hypomagnesemia; E66.9 Obesity, unspecified; D64.9 Anemia, unspecified; I49.5 Sick sinus syndrome; Z79.899 Other long term (current) drug therapy; Z79.82 Long term (current) use of aspirin; Z79.84 Long term (current) use of oral hypoglycemic drugs; Z68.37 Body mass index [BMI] 37.0-37.9, adult
CPT/HCPCS: 33225; 33249; 36415; 36416; 71045; 80048; 80053; 80306; 83036; 83735; 83880; 84443; 84484; 85025; 93005; 93641; 96365; 96372; C1769; C1882; C1895; C1898; C1900; G0378; J1580; J1650; J1815; J2250; J2704; J3010; J3475; J3490; Q0177; Q9967

== ENCOUNTER 2024-08-08 18:09 | Emergency (ER) | payer OTHER ==
[2024-08-08 19:22] LABS: #Basophils 0.05 10x3/uL (0.0-0.2); %Basophils 0.7 % (0.0-1.0); %Eosinophils 2.5 % (0.0-10.0); %Lymphocytes 36.4 % (21.0-51.0); %Neutrophils 53.3 % (42.0-75.0); Hematocrit 41.4 % (42.0-52.0); Hemoglobin 12.1 g/dL (14.0-18.0); Mean Corpuscular HGB CONC 29.2 g/dL (32.0-36.0); Mean Corpuscular Volume 78.9 fL (78.0-98.0); Mean Platelet Volume 11.1 fL (7.4-10.4); Platelet Count 223 10x3/uL (130-400); RBC Distribution Width 16.1 % (11.5-14.5); Red Blood Cell (RBC) Count 5.25 mill/uL (4.70-6.10)
[2024-08-08 19:45] LABS: ALT (SGPT) 15 U/L (8-55); AST (SGOT) 13 U/L (5-34); Albumin 3.6 g/dL (3.4-4.8); Alkaline Phosphatase 106 U/L (40-110); Anion Gap 16 mmol/L (10-20); BUN (Urea Nitrogen) 12 mg/dL (8.4-25.7); Bilirubin, Total 0.4 mg/dL (0.2-1.2); Calc. Creatinine Clearance 0 mL/min (70-130); Carbon Dioxide 20 mmol/L (23-31); Chloride 99 mmol/L (98-107); Estimated GFR 61; Globulin 3.6 g/dL (2.4-3.5); Glucose 432 mg/dL (80-115); Magnesium 2.1 mg/dL (1.6-2.6); Potassium 4.2 mmol/L (3.5-5.1); Protein, Total 7.2 g/dL (5.8-8.1); Sodium 131 mmol/L (136-145)
[2024-08-08 19:47] LABS: Phosphorus 2.9 mg/dL (2.3-4.7)
[2024-08-08 21:54] LABS: Troponin I Less than 0.010 ng/mL (< 0.028)
[2024-08-08 22:42] LABS: Bacteria/HPF None Seen HPF (None Seen); Bilirubin Negative (Negative); Blood, Urine Negative (Negative); CAUTI Indications for Culture Dysuria,urgency,freq; Clarity Clear (Clear); Glucose, Urine (Dipstick) Greater than 1000 mg/dL (Negative); Ketone, Urine Negative (Negative); Leukocyte Negative Leu/uL (Negative); Nitrite Negative (Negative); Protein, Urine (Dipstick) Negative (Neg-Trace); RBC/HPF 0-3 HPF (0-3); Specific Gravity, Urine 1.038 (1.002-1.036); Squamous Epithelial None Seen HPF (0-3); Urobilinogen Normal mg/dL (Less than 2); WBC/HPF 0-3 HPF (0-3)
[2024-08-08 22:46] LABS: Urine Culture Reflex No No
== END 2024-08-09 00:42 | disposition home or self-care (01) ==
LOC: ERS 18:09
DX: E11.65 Type 2 diabetes mellitus with hyperglycemia (principal); I11.0 Hypertensive heart disease with heart failure; I50.9 Heart failure, unspecified; Z79.4 Long term (current) use of insulin
CPT/HCPCS: 36415; 36416; 71045; 80053; 81001; 82010; 83735; 83880; 84100; 84484; 85025; 93005

== ENCOUNTER 2024-09-26 18:21 | Emergency (ER) | payer OTHER ==
[2024-09-26 22:10] LABS: Bacteria/HPF None Seen HPF (None Seen); Bilirubin Negative (Negative); Blood, Urine Negative (Negative); CAUTI Indications for Culture Pelvic or flank pain; Clarity Clear (Clear); Glucose, Urine (Dipstick) Greater than 1000 mg/dL (Negative); Ketone, Urine Negative (Negative); Leukocyte Negative Leu/uL (Negative); Nitrite Negative (Negative); Protein, Urine (Dipstick) Negative (Neg-Trace); RBC/HPF 0-3 HPF (0-3); Specific Gravity, Urine 1.029 (1.002-1.036); Squamous Epithelial None Seen HPF (0-3); Urobilinogen Normal mg/dL (Less than 2); WBC/HPF 0-3 HPF (0-3); pH, Urine 5.5 (5.0-9.0)
[2024-09-26 22:11] LABS: Urine Culture Reflex No No
[2024-09-27 00:52] LABS: #Basophils 0.05 10x3/uL (0.0-0.2); %Basophils 0.7 % (0.0-1.0); %Eosinophils 2.2 % (0.0-10.0); %Lymphocytes 35.1 % (21.0-51.0); %Monocytes 8.9 % (0.0-10.0); Hematocrit 38.9 % (42.0-52.0); Hemoglobin 11.4 g/dL (14.0-18.0); Mean Corpuscular HGB CONC 29.3 g/dL (32.0-36.0); Mean Corpuscular Hemoglobin 22.6 pg (27.0-31.0); Mean Platelet Volume 10.7 fL (7.4-10.4); Platelet Count 265 10x3/uL (130-400); RBC Distribution Width 17.1 % (11.5-14.5); Red Blood Cell (RBC) Count 5.05 mill/uL (4.70-6.10)
[2024-09-27 01:04] LABS: Phosphorus 3.9 mg/dL (2.5-4.5)
[2024-09-27 01:07] LABS: ALT (SGPT) 15 U/L (Less than 45); AST (SGOT) 19 U/L (11-34); Albumin 3.6 g/dL (3.1-4.5); Alkaline Phosphatase 87 U/L (40-110); Anion Gap 12 mmol/L (10-20); BUN (Urea Nitrogen) 13 mg/dL (8.4-25.7); Bilirubin, Total 0.4 mg/dL (0.3-1.2); Calc. Creatinine Clearance 0 mL/min (70-130); Calcium 9.2 mg/dL (7.8-10.44); Carbon Dioxide 22 mmol/L (23-31); Chloride 104 mmol/L (98-107); Estimated GFR 65; Globulin 3.5 g/dL (2.4-3.5); Glucose 228 mg/dL (80-115); Protein, Total 7.1 g/dL (5.8-8.1); Sodium 134 mmol/L (136-145)
== END 2024-09-27 01:30 | disposition home or self-care (01) ==
LOC: ERS 18:21
DX: E11.65 Type 2 diabetes mellitus with hyperglycemia (principal); I11.0 Hypertensive heart disease with heart failure; I50.9 Heart failure, unspecified; E78.5 Hyperlipidemia, unspecified; Z79.82 Long term (current) use of aspirin; Z79.4 Long term (current) use of insulin; Z79.899 Other long term (current) drug therapy
CPT/HCPCS: 36416; 80053; 81001; 82010; 84100; 85025; 99284

== ENCOUNTER 2025-04-18 15:19 | Emergency (ER) | payer OTHER ==
[2025-04-18 16:01] LABS: Bacteria/HPF None Seen HPF (None Seen); CAUTI Indications for Culture Dysuria,urgency,freq; Glucose, Urine (Dipstick) Greater than 1000 mg/dL (Negative); Leukocyte Negative Leu/uL (Negative); Protein, Urine (Dipstick) Negative (Neg-Trace); RBC/HPF 0-3 HPF (0-3); Specific Gravity, Urine 1.029 (1.002-1.036); WBC/HPF 0-3 HPF (0-3)
[2025-04-18 16:05] LABS: Urine Culture Reflex No No
[2025-04-19 06:29] LABS: Chlam.trachomatis by PCR,Urine Not Detected (NotDetected); GC N.gonorrhoeae PCR,UrineVOID Not Detected (NotDetected)
== END 2025-04-18 16:48 | disposition home or self-care (01) ==
LOC: ERS 15:19
DX: N47.6 Balanoposthitis (principal)
CPT/HCPCS: 81001; 87491; 87591; 99283

== ENCOUNTER 2025-04-20 18:59 | Emergency (ER) | payer OTHER ==
[2025-04-20 20:11] LABS: #Basophils 0.03 10x3/uL (0.0-0.2); #Eosinophils 0.16 10x3/uL (0.0-0.7); #Monocytes 0.77 10x3/uL (0.11-0.59); #Neutrophils 4.15 10x3/uL (1.40-6.50); %Basophils 0.4 % (0.0-1.0); %Eosinophils 2.2 % (0.0-10.0); %Lymphocytes 29.1 % (21.0-51.0); %Monocytes 10.6 % (0.0-10.0); %Neutrophils 57.3 % (42.0-75.0); Hematocrit 39.3 % (42.0-52.0); Hemoglobin 11.8 g/dL (14.0-18.0); Mean Corpuscular Hemoglobin 22.3 pg (27.0-31.0); Mean Corpuscular Volume 74.3 fL (78.0-98.0); Platelet Count 279 10x3/uL (130-400); Red Blood Cell (RBC) Count 5.29 mill/uL (4.70-6.10); White Blood Cell (WBC) Count 7.25 10x3/uL (4.8-10.8)
[2025-04-20 20:21] LABS: ALT (SGPT) 12 U/L (Less than 45); AST (SGOT) 23 U/L (11-34); Albumin 3.7 g/dL (3.1-4.5); Alkaline Phosphatase 90 U/L (40-110); Anion Gap 17 mmol/L (10-20); BUN (Urea Nitrogen) 17 mg/dL (8.4-25.7); Bilirubin, Total 0.3 mg/dL (0.3-1.2); Calc. Creatinine Clearance 0 mL/min (70-130); Calcium 9.2 mg/dL (7.8-10.44); Carbon Dioxide 19 mmol/L (23-31); Chloride 102 mmol/L (98-107); Globulin 3.8 g/dL (2.4-3.5); Glucose 283 mg/dL (80-115); Potassium 4.0 mmol/L (3.5-5.1); Sodium 134 mmol/L (136-145)
[2025-04-20 20:35] LABS: Anisocytosis SLIGHT = 6-15 cells HPF (0-5); Burr Cells MODERATE= 6-15 cells HPF (0-1); Microcytosis SLIGHT = 6-15 cells HPF (0-5); Platelet Adequacy Comment Platelets Normal; Polychromasia SLIGHT = 2-3 cells HPF (0-2); Schistocytes SLIGHT = 2-5 cells HPF (0-1)
== END 2025-04-20 23:39 | disposition home or self-care (01) ==
LOC: ERS 18:59
DX: I95.89 Other hypotension (principal); I11.0 Hypertensive heart disease with heart failure; I50.9 Heart failure, unspecified; Z95.810 Presence of automatic (implantable) cardiac defibrillator
CPT/HCPCS: 70450; 71045; 80053; 83880; 84484; 85025; 93005

== ENCOUNTER 2025-08-30 08:23 | Emergency (ER) | payer OTHER | END 2025-08-30 09:08 | disposition home or self-care (01) | LOC: ERS 08:23 | DX: J06.9 Acute upper respiratory infection, unspecified (principal); B97.89 Other viral agents as the cause of diseases classified elsewhere; I11.0 Hypertensive heart disease with heart failure; I50.9 Heart failure, unspecified; E11.22 Type 2 diabetes mellitus with diabetic chronic kidney disease; Z95.5 Presence of coronary angioplasty implant and graft; Z79.84 Long term (current) use of oral hypoglycemic drugs; Z79.899 Other long term (current) drug therapy | CPT/HCPCS: 87428; 99283 ==